=== PATIENT | male | born 1965 | race Caucasian/White ===

== ENCOUNTER 2018-03-17 22:00 | Inpatient (IN) | END 2018-03-22 15:45 | disposition home or self-care (01) | DRG 682 ==

== ENCOUNTER 2018-06-27 21:51 | Inpatient (IN) | END 2018-07-04 13:40 | disposition home or self-care (01) | DRG 683 ==

== ENCOUNTER 2018-09-09 03:29 | Emergency (ER) | payer OTHER ==
[~2018-09-09] VITALS: Ht 170.2 cm; Wt 69.8 kg
[~2018-09-09 03:29] MED LIST: ASPI-1044 PO; ATOR20TA38 PO; BUME1TAB PO; CLON-379 PO; HYDR-3671 PO; INSU100I12 SQ; LANT3I SC; NEPH PO
[2018-09-09 03:39] VITALS: Ht 170.2 cm; Wt 69.8 kg
[2018-09-09] MEDS ORDERED: ONDANSETRON 4 MG INJ IV STA (05:17)
[2018-09-09] MEDS ORDERED: morphine 10 MG INJ IV ONE (05:30)
[2018-09-09 06:03] VITALS: RESP 16
[2018-09-09] MEDS ORDERED: NICARDipine HCL 30 MG CAPSULE PO ONE (07:00)
[2018-09-09 07:58] VITALS: BP 172/91; PULSE 78
--- NOTE | 2018-09-25 09:39 | ERD ---
ER Documentation Chief Complaint Chief Complaint Pt c/o flank pain and CKD, pain started 4 days ago HPI 53 year old male presenting with right flank pain for the past 4-5 days. The pain is aching, constant, nonradiating, without alleviating or exacerbating factors, rated at a 8/10. He has had no associated change in urination, dysuria, hematuria, abdominal pain, nausea, vomiting fevers or chills.No cough or hemoptysis. Per his daughter at bedside, he has CKD but is not yet on dialysis. They are concerned his pain is due to his kidney problems. Denies any recent heavy lifting or injury. No associated focal weakness, numbness or tingling. ROS All systems reviewed and are negative except as per history of present illness. Medications Home Meds Active Scripts Nifedipine (Procardia Xl) 90 Mg Tab.er.24, 90 MG PO DAILY, #30 TAB Prov:SOTO,NATO V. BOTTLED BEVERAGE INSPECTOR 09/17/18 Losartan Potassium* (Cozaar*) 50 Mg Tablet, 50 MG PO BID, #60 TAB Prov:SOTO,NATO V. BOTTLED BEVERAGE INSPECTOR 09/17/18 Bumetanide* (Bumetanide*) 1 Mg Tablet, 2 MG PO DAILY, #30 TAB Prov:SOTO,NATO V. BOTTLED BEVERAGE INSPECTOR 09/17/18 Insulin Lispro (Humalog Kwikpen U-100) 100 Unit/1 Ml Insuln.pen, 5 UNIT SQ AC MEALS, #3 EA Prov:GREG CHILDS 03/22/18 Atorvastatin Calcium* (Atorvastatin Calcium*) 20 Mg Tablet, 20 MG PO QHS, #30 TAB Prov:GREG CHILDS 03/22/18 Clonidine Hcl* (Clonidine Hcl*) 0.1 Mg Tab, 0.1 MG PO Q8, #90 TAB Prov:GREG CHILDS 03/22/18 Reported Medications Calcium Acetate* (Calcium Acetate*) 667 Mg Capsule, 667 MG PO WITH MEALS, #30 CAP 09/12/18 Multivit/Ca Carb/B Cmplx/Fa* (Berta-Shamika*) 1 Tab Tab, 1 TAB PO DAILY, TAB 06/27/18 Insulin Glargine* (Lantus*) 100 Unit/Ml Soln, 10 UNIT SC QHS, #1 VIAL 12/19/18 Allergies Allergies: Coded Allergies: No Known Allergy (Unverified , 09/12/18) PMhx/Soc History of Surgery: No Anesthesia Reaction: No Hx Neurological Disorder: No Hx Respiratory Disorders: No Hx Cardiac Disorders: Yes (HTN) Hx Psychiatric Problems: No Hx Miscellaneous Medical Probl: Yes (DM, HLD, CKD) Hx Alcohol Use: No Hx Substance Use: No Hx Tobacco Use: No Smoking Status: Never smoker FmHx Family History: No coronary disease Physical Exam Physical Exam Const: No acute distress, nontoxic Head: Atraumatic Eyes: Normal Conjunctiva ENT: Normal External Ears, Nose and Mouth. Neck: Full range of motion. No meningismus. Resp: Clear to auscultation bilaterally Cardio: Regular rate and rhythm, no murmurs. 2+ distal pulses Abd: Soft, non tender, non distended. Normal bowel sounds Skin: No petechiae or rashes Back: No midline TTP. mild right CVA TTP. no paraspinal muscle tenderness. Ext: No cyanosis, or edema Neur: Awake and alert, normal speech, moving all extremities Psych: Normal Mood and Affect Results 24 hrs Laboratory Tests Test 09/09/18 04:38 09/09/18 06:36 White Blood Count 7.2 10^3/ul Red Blood Count 3.12 10^6/ul Hemoglobin 8.9 g/dl Hematocrit 27.0 % Mean Corpuscular Volume 86.5 fl Mean Corpuscular Hemoglobin 28.5 pg Mean Corpuscular Hemoglobin Concent 33.0 g/dl Red Cell Distribution Width 13.8 % Platelet Count 247 10^3/UL Mean Platelet Volume 11.5 fl Immature Granulocytes % 0.400 % Neutrophils % 64.7 % Lymphocytes % 21.2 % Monocytes % 9.5 % Eosinophils % 3.6 % Basophils % 0.6 % Nucleated Red Blood Cells % 0.0 /100WBC Immature Granulocytes # 0.030 10^3/ul Neutrophils # 4.7 10^3/ul Lymphocytes # 1.5 10^3/ul Monocytes # 0.7 10^3/ul Eosinophils # 0.3 10^3/ul Basophils # 0.0 10^3/ul Nucleated Red Blood Cells # 0.0 10^3/ul Sodium Level 138 mmol/L Potassium Level 5.0 mmol/L Chloride Level 110 mmol/L Carbon Dioxide Level 20 mmol/L Anion Gap 8 Blood Urea Nitrogen 90 mg/dl Creatinine 8.30 mg/dl Est Glomerular Filtrat Rate mL/min 7 mL/min Glucose Level 160 mg/dl Calcium Level 8.8 mg/dl Total Bilirubin 0.0 mg/dl Direct Bilirubin 0.00 mg/dl Indirect Bilirubin 0.0 mg/dl Aspartate Amino Transf (AST/SGOT) 25 IU/L Alanine Aminotransferase (ALT/SGPT) 24 IU/L Alkaline Phosphatase 69 IU/L Total Protein 6.3 g/dl Albumin 3.3 g/dl Globulin 3.00 g/dl Albumin/Globulin Ratio 1.10 Lipase 303 U/L Urine Color YELLOW Urine Clarity CLEAR Urine pH 5.0 Urine Specific [place] 1.013 Urine Ketones NEGATIVE mg/dL Urine Nitrite NEGATIVE mg/dL Urine Bilirubin NEGATIVE mg/dL Urine Urobilinogen NEGATIVE mg/dL Urine Leukocyte Esterase NEGATIVE Criss/ul Urine Microscopic RBC 3 /HPF Urine Microscopic WBC 2 /HPF Urine Bacteria FEW /HPF Urine Hemoglobin NEGATIVE mg/dL Urine Glucose 3+ mg/dL Urine Total Protein 3+ mg/dl Current Medications Medications Dose Sig/Thai Start Time Status Last (Trade) Ordered Route PRN Stop Time Admin Dose Reason Admin Morphine 6 mg ONCE ONCE 09/09/18 DC 09/09/18 Sulfate IV 05:30 09/09/18 05:21 (morphine) 05:31 Ondansetron 4 mg ONCE STAT 09/09/18 DC 09/09/18 HCl (Zofran IV 05:17 09/09/18 05:21 Inj) 05:18 Nicardipine 30 mg ONCE ONCE 09/09/18 DC 09/09/18 HCl PO 07:00 09/09/18 06:53 (Cardene) 07:01 Procedures/MDM EMERGENT LABS AND DIAGNOSTIC STUDIES: Lab Results above were reviewed and interpreted by me. CBC: Evidence of anemia, chronic. No leukocytosis or evidence of infection CMP: Elevated BUN and creatinine, consistent with history of chronic kidney disease. No evidence of electrolyte abnormality, severe acidosis, hypoglycemia, liver failure, or biliary obstruction Lipase: no evidence of pancreatitis UA: no evidence of infection 12-lead EKG was interpreted by Pia Henderson MD: Normal Sinus Rhythm Normal axis Normal intervals No acute ST or T wave changes suggestive of acute ischemia or STEMI. Radiology Results as interpreted by Radiology below were reviewed by Catherine Henderson MD: Chest x-ray shows no acute abnormalities CT abdomen and pelvis: IMPRESSION: No evidence of urolithiasis, obstructive uropathy, diverticulitis or appendicitis. Small bilateral pleural effusions with bibasilar atelectasis. .Narayan Alston MD, MD Date Time Electronically viewed and signed by .Narayan Alston MD, MD on 09/09/2018 06:26 Initial Nursing notes reviewed. Previous Medical Records requested via the Electronic Health Record. EMERGENCY DEPARTMENT COURSE / MEDICAL DECISION MAKING: Patient is presenting with acute onset of right flank pain for the past few days. Vitals are stable and he is afebrile. I did consider pyelonephritis, ureterolithiasis, retroperitoneal hemorrhage, liver disease, pancreatitis, lower lobe pneumonia, perforated viscus, among other etiologies. Labs did show evidence of chronic kidney disease, which the patient endorses a history of. However he has had no change in urine output. Urine did not show evidence of infection. CT scan was done which did not show any acute abnormalities that would explain his pain. After pain medications were given, the patient was reevaluated once his studies were back and he states he feels much better. I explained to him the results of his studies and recommended follow-up with his primary care physician tomorrow. I encouraged him to return for any worsening symptoms. Patient's blood pressure was elevated (>120/80) but appears stable without ev idence of hypertensive emergency or urgency. The patient was counseled about the risks of hypertension and urged to pursue outpatient monitoring and therapy within a week with their primary care physician. Departure Diagnosis: Primary Impression: Acute right flank pain Condition: Stable Patient Instructions: Flank Pain, Uncertain Cause Referrals: DOCTOR,NOT ON STAFF (PCP) Additional Instructions: Naomie nicko meghana de seguimiento con bales mdico de atencin primaria [facility]. Regrese a la kimi de emergencias por cualquier empeoramiento de los sntomas. EVGENY HENDERSON MD Sep 25, 2018 09:39
== END 2018-09-09 08:00 | disposition home or self-care (01) ==
LOC: E/R 03:29
DX: R10.9 Unspecified abdominal pain (principal); I12.9 Hypertensive chronic kidney disease with stage 1 through stage 4 chronic kidney disease, or unspecified chronic kidney disease; N18.9 Chronic kidney disease, unspecified; E11.22 Type 2 diabetes mellitus with diabetic chronic kidney disease; Z79.4 Long term (current) use of insulin
CPT/HCPCS: 71045; 74176; 80053; 81001; 83690; 85025; 93005; J2270; J2405; Z7610; 36415; 96374; 96375

== ENCOUNTER 2018-09-12 10:24 | Inpatient (IN) | payer OTHER ==
[2018-09-12] VITALS (13 sets, daily range): BP systolic 202–239; BP diastolic 102–120; PULSE 96–104; RESP 18–19; Ht 167.6 cm; Wt 69.8 kg
[~2018-09-12] VITALS: Ht 167.6 cm; Wt 69.8 kg
--- NOTE | 2018-09-12 12:26 | ERD ---
ER Documentation Chief Complaint Chief Complaint PT SEND PER PMD FOR STAT DIALYSIS, NO PRIOR DIALYSIS ACCESS HPI 53-year-old male referred to the emergency department by his mud mill tender. Patient has been followed by his mud mill tender for renal failure over the last year or so. His renal function has been worsening and upon repeat blood tests, it appears the patient now needs dialysis. Patient states that he has been feeling generally weak but without significant shortness of breath. Denies any fevers or chills. Patient had decreased urination but still continues to urinate. ROS All systems reviewed and are negative except as per history of present illness. Medications Home Meds Active Scripts Hydralazine Hcl* (Hydralazine Hcl*) 25 Mg Tab, 75 MG PO QID, #120 TAB Prov:RICHARD FONTANEZ KILN SETTER 07/04/18 Bumetanide* (Bumetanide*) 1 Mg Tablet, 2 MG PO BID DIURETICS, #60 TAB Prov:RICHARD FONTANEZ KILN SETTER 07/04/18 Insulin Lispro (Humalog Kwikpen U-100) 100 Unit/1 Ml Insuln.pen, 5 UNIT SQ AC MEALS, #3 EA Prov:GREG CHILDS 03/22/18 Atorvastatin Calcium* (Atorvastatin Calcium*) 20 Mg Tablet, 20 MG PO QHS, #30 TA B Prov:GREG CHILDS 03/22/18 Clonidine Hcl* (Clonidine Hcl*) 0.1 Mg Tab, 0.1 MG PO Q8, #90 TAB Prov:GREG CHILDS 03/22/18 Reported Medications Multivit/Ca Carb/B Cmplx/Fa* (Berta-Shamika*) 1 Tab Tab, 1 TAB PO DAILY, TAB 06/27/18 Insulin Glargine* (Lantus*) 100 Unit/Ml Soln, 10 UNIT SC QHS, #1 VIAL 06/27/18 Discontinued Scripts Aspirin Delayed Release (Aspirin Delayed Release) 81 Mg Tablet.dr, 81 MG PO ANNA MARIE LY, #30 Prov:RICHARD FONTANEZ KILN SETTER 07/04/18 Allergies Allergies: Coded Allergies: No Known Allergy (Unverified , 09/12/18) PMhx/Soc History of Surgery: No Anesthesia Reaction: No Hx Neurological Disorder: No Hx Respiratory Disorders: No Hx Cardiac Disorders: Yes (HTN) Hx Psychiatric Problems: No Hx Miscellaneous Medical Probl: Yes (DM, HLD, CKD) Hx Alcohol Use: No Hx Substance Use: No Hx Tobacco Use: No Smoking Status: Never smoker FmHx Noncontributory for chief complaint Physical Exam Vitals Vital Signs Date Temp Pulse Resp B/P (MAP) Pulse Ox O2 O2 Flow FiO2 Time Delivery Rate 09/12/18 95 14 233/105 100 Room Air 10:53 (147) 09/12/18 98.5 109 18 250/119 99 10:27 (162) Physical Exam GENERAL: Pale, appearing patient. HEENT: Pupils equal, round, and reactive to light. EOMI. There is no scleral icterus. Mucous membranes are pale NECK: C-spine is soft and supple, there is no meningismus. There is no cervical lymphadenopathy. LUNGS: Clear to auscultation bilaterally. There are no rales, wheezes or rhonchi. HEART: Regular rate and rhythm, no murmurs, clicks, rubs or gallops. ABDOMEN: Soft, non-tender, non-distended. There are bowel sounds in all four quadrants. No rebound or guarding. EXTREMITIES: There is no peripheral cyanosis or edema. No focal swelling or erythema. NEURO: The patient moves all four extremities with 5/5 strength. Cranial nerves II - XII are intact. Normal gait. Alert and oriented SKIN: There is no apparent rash or petechiae. HEME/LYMPHATIC: There is no evidence of excessive bruising or lymphedema. PSYCHIATRIC: The patient does not appear anxious or depressed. Result Diagram: 09/12/18 1141 09/12/18 1141 Results 24 hrs Laboratory Tests Test 09/12/18 11:41 White Blood Count 8.3 10^3/ul Red Blood Count 3.17 10^6/ul Hemoglobin 9.2 g/dl Hematocrit 27.6 % Mean Corpuscular Volume 87.1 fl Mean Corpuscular Hemoglobin 29.0 pg Mean Corpuscular Hemoglobin Concent 33.3 g/dl Red Cell Distribution Width 13.5 % Platelet Count 254 10^3/UL Mean Platelet Volume 11.2 fl Immature Granulocytes % 0.400 % Neutrophils % 74.0 % Lymphocytes % 16.0 % Monocytes % 6.5 % Eosinophils % 2.6 % Basophils % 0.5 % Nucleated Red Blood Cells % 0.0 /100WBC Immature Granulocytes # 0.030 10^3/ul Neutrophils # 6.2 10^3/ul Lymphocytes # 1.3 10^3/ul Monocytes # 0.5 10^3/ul Eosinophils # 0.2 10^3/ul Basophils # 0.0 10^3/ul Nucleated Red Blood Cells # 0.0 10^3/ul Sodium Level 136 mmol/L Potassium Level 5.9 mmol/L Chloride Level 106 mmol/L Carbon Dioxide Level 23 mmol/L Anion Gap 7 Blood Urea Nitrogen 81 mg/dl Creatinine 8.18 mg/dl Est Glomerular Filtrat Rate mL/min 7 mL/min Glucose Level 238 mg/dl Calcium Level 8.9 mg/dl Current Medications Medications Dose Sig/Thai Start Time Status Last (Trade) Ordered Route PRN Stop Time Admin Dose Reason Admin Sodium 30 gm ONCE ONCE 09/12/18 Polystyrene PO 12:30 09/12/18 Sulfonate 12:31 (Kayexalate) Procedures/MDM Patient was taken to a room, seen and evaluated. Comfort measures were initiated. Diagnostic tests were ordered and reviewed. 3 LEAD RHYTHM STRIP: Normal sinus rhythm without ectopy EK lead EKG reviewed by myself: Normal Sinus Rhythm Normal [place] and intervals No ST elevation, depression, or T wave inversion Impression: Normal EKG RADIOLOGY: Reviewed with the radiologist CONSULTATION: Hospitalist was notified for admission. I spoke with the patient's mud mill tender REEVALUATION: 1225: Diagnostic tests were appreciated. Arrangements were made for admission to the hospital. He remained hemodynamically stable. MEDICAL DECISION MAKIN-year-old male presents the emergency room with worsening renal failure and now new onset uremia and hyperkalemia which will lead him to require dialysis. Patient required admission to the hospital for elective light control, initiation of dialysis as well as placement of a catheter. Departure Diagnosis: Primary Impression: Renal failure Additional Impressions: Anemia Uremia Hyperkalemia Condition: ERIKA Moreno Sep 12, 2018 12:26
[2018-09-12] MEDS ORDERED: NA POLYST SULFON 15 GM/60 ML BTL PO ONE (12:30)
[2018-09-12] MEDS ORDERED: NACL 0.9% 3 ML SYG IV SCH (13:00)
[2018-09-12] MEDS ORDERED: GLUCOSE GEL 15 GRAM TUBE BUCCAL PRN (13:00)
[2018-09-12] MEDS ORDERED: GLUCAGON 1 MG INJ IM PRN (13:00)
[2018-09-12] MEDS ORDERED: hydrALAzine 20 MG INJ IV ONE (13:00)
[2018-09-12] MEDS ORDERED: HYDROCODONE/APAP (5/325) TAB PO PRN (13:00)
[2018-09-12] MEDS ORDERED: DEXTROSE 50% 50 ML SYRINGE IV PRN ×2 (13:00)
[2018-09-12] MEDS ORDERED: GLUCOSE GEL 15 GRAM TUBE PO PRN ×2 (13:00)
[2018-09-12] MEDS ORDERED: ACETAMINOPHEN 500 MG TAB PO STA (14:01)
[2018-09-12] MEDS ORDERED: HEPARIN 1000 UNITS/ML 10 ML INJ ONE (14:55)
[2018-09-12] MEDS ORDERED: LIDOCAINE 1% (MDV) 20 ML INJ ONE (14:55)
[2018-09-12] MEDS ORDERED: MIDAZOLAM 1 MG/ML 2 ML INJ ONE (14:55)
[2018-09-12] MEDS ORDERED: IODIXANOL LOCM 50 ML BTL ONE (14:55)
[2018-09-12] MEDS ORDERED: FENTAnyl 50 MCG/ML VIAL ONE (14:56)
--- NOTE | 2018-09-12 15:13 | HP ---
Date/Time of Note Date/Time of Note DATE: 09/12/18 TIME: 15:10 Assessment/Plan VTE Prophylaxis Pharmacological prophylaxis: heparin Lines/Catheters IV Catheter Type (from Nrsg): Saline Lock Assessment/Plan Hospital Course 53 yo male with CKD V, HTN, DMII referred for HD initiation and abdominal pain ESRD: - Initiation of HD per renal - Catheter to be placed RUQ pain: - Only abnormality on CT is pericardial effusion. Perhaps uremic pericarditis is present - Pain control PRN HTN: - Home meds DMII: - Basal/bolus insulin Dispo: To home when HD arranged Result Diagram: 09/12/18 1141 09/12/18 1141 Results 24hrs Laboratory Tests Test 09/12/18 11:41 White Blood Count 8.3 Red Blood Count 3.17 L Hemoglobin 9.2 L Hematocrit 27.6 L Mean Corpuscular Volume 87.1 Mean Corpuscular Hemoglobin 29.0 Mean Corpuscular Hemoglobin Concent 33.3 Red Cell Distribution Width 13.5 Platelet Count 254 Mean Platelet Volume 11.2 H Immature Granulocytes % 0.400 Neutrophils % 74.0 Lymphocytes % 16.0 Monocytes % 6.5 Eosinophils % 2.6 Basophils % 0.5 Nucleated Red Blood Cells % 0.0 Immature Granulocytes # 0.030 Neutrophils # 6.2 Lymphocytes # 1.3 Monocytes # 0.5 Eosinophils # 0.2 Basophils # 0.0 Nucleated Red Blood Cells # 0.0 Sodium Level 136 Potassium Level 5.9 H Chloride Level 106 Carbon Dioxide Level 23 Anion Gap 7 Blood Urea Nitrogen 81 H Creatinine 8.18 H Est Glomerular Filtrat Rate mL/min 7 L Glucose Level 238 H Calcium Level 8.9 Total Bilirubin 0.1 L Direct Bilirubin 0.00 Indirect Bilirubin 0.1 Aspartate Amino Transf (AST/SGOT) 26 Alanine Aminotransferase (ALT/SGPT) 25 Alkaline Phosphatase 60 Total Protein 5.9 L Albumin 3.3 Hepatitis B Surface Antigen NEGATIVE Hepatitis B Surface Antibody NEGATIVE HPI/ROS Admit Date/Time Admit Date/Time Hx of Present Illness 53 yo male with h/o HTN, DMII and CKD V referred for initiation of HD Patient also with severe RUQ pain for last week or so. Came to ED a few days ago. CT negative. Sent home. Continues to have worsening pain. Has nausea. PO intolerant. No fevers. No diarrhea. Went ot receiving checker who referred him to ED for initiation of HD. ROS Constitutional: no complaints, improved Eyes: no complaints ENT: no complaints Respiratory: no complaints Cardiovascular: no complaints Gastrointestinal: no complaints Genitourinary: no complaints Musculoskeletal: no complaints Skin: no complaints Neurologic: no complaints Endocrine: no complaints Lymphatic: no complaints Psychological: no complaints, nl mood/affect Immunologic: no complaints PMH/Family/Social Past Medical History Medical History: diabetes, renal disease Medications Current Medications IV Flush (NS 3 ml) 3 ml PER PROTOCOL IV ; Start 09/12/18 at 13:00 Acetaminophen/ Hydrocodone Bitart ([place] (5/325)) 1 tab Q6H PRN PO .MOD PAIN 4- 6; Start 09/12/18 at 13:00 Heparin Sodium (Porcine) (Heparin (5000 Units/1ml)) 5,000 unit Q12 SC ; Start 09/12/18 at 21:00 Insulin Glargine (Lantus) 14 units DAILY@2000 SC ; Start 09/12/18 at 20:00 Insulin Aspart (Novolog Insulin Pen) 5 unit WITH MEALS SC ; Start 09/12/18 at 18:00 Insulin Aspart (Novolog Insulin Pen) NOVOLOG *MODERATE* ALGORITHM WITH MEALS BEDTIME SC ; Start 09/12/18 at 18:00 Miscellaneous Information 1 ea NOTE XX ; Start 09/12/18 at 13:00 Glucose (Glutose) 15 gm Q15M PRN PO DECREASED GLUCOSE; Start 09/12/18 at 13:00 Glucose (Glutose) 22.5 gm Q15M PRN PO DECREASED GLUCOSE; Start 09/12/18 at 13:00 Dextrose (D50w Syringe) 25 ml Q15M PRN IV DECREASED GLUCOSE; Start 09/12/18 at 13:00 Dextrose (D50w Syringe) 50 ml Q15M PRN IV DECREASED GLUCOSE; Start 09/12/18 at 13:00 Glucagon (Glucagen) 1 mg Q15M PRN IM DECREASED GLUCOSE; Start 09/12/18 at 13:00 Glucose (Glutose) 15 gm Q15M PRN BUCCAL DECREASED GLUCOSE; Start 09/12/18 at 13:00 Atorvastatin Calcium (Lipitor) 20 mg QHS PO ; Start 09/12/18 at 21:00 Bumetanide (Bumex) 2 mg BID DIURETICS PO ; Start 09/12/18 at 18:00 Clonidine (Catapres) 0.1 mg Q8 PO ; Start 09/12/18 at 14:00 Hydralazine HCl (Apresoline) 75 mg QID PO Last administered on 09/12/18at 13:56; Admin Dose 75 MG; Start 09/12/18 at 13:00 Multivit/Ca Carb/ B Cmplx/FA/Prenat (Berta-Shamika) 1 tab DAILY PO ; Start 09/13/18 at 09:00 Hydromorphone HCl (Dilaudid) 0.5 mg Q4H PRN IV SEVERE PAIN LEVEL 7-10; Start 09/12/18 at 15:30 Coded Allergies: No Known Allergy (Unverified , 09/12/18) Past Surgical History Past Surgical Hx: no surgical history Family History Significant Family History: no pertinent family hx Social History Alcohol Use: none Smoking Status: Never smoker Drug Use: none Exam/Review of Systems Vital Signs Vitals Vital Signs Date Temp Pulse Resp B/P (MAP) Pulse Ox O2 O2 Flow FiO2 Time Delivery Rate 09/12/18 99 20 193/99 99 Room Air 13:17 (130) 09/12/18 98.5 10:27 Exam Exam Appears uncomfortable In postiion RRR no rub CTAB Soft nt nd Ext warm MILGROM,WILTON Alexander MD Sep 12, 2018 15:13
--- NOTE | 2018-09-12 15:49 | RADRPT ---
PROCEDURE: PLACEMENT OF RIGHT INTERNAL JUGULAR VENOUS TUNNELED DIALYSIS CATHETER. CLINICAL INDICATION: Renal failure. TECHNIQUE: Prior to the procedure, informed consent was obtained. Risks including bleeding, infection, and pneum othorax were explained to the patient and/or the patient's family. The patient and/or the patient's f amily understood and was willing to proceed. A procedural pause was performed. The patient's name, da te of , and procedure to be performed were verified. The central line was inserted with all new [place] ents of maximal sterile barrier technique. All of the following were used: head covering, facial mask , sterile gown, sterile gloves, a large sterile sheet, hand hygiene, and 2% chlorhexidine for cutane ous antisepsis. The right neck and anterior/superior chest wall was prepped and draped in usual ster ile fashion. Limited sonography of the right neck was then performed. Noted is a patent right internal jugular vei n. Ultrasound images were recorded and stored in the patient's medical record. Following the local injection of Xylocaine, the right internal jugular vein was punctured under sonog raphic guidance with a 20-gauge needle through which a 0.018 inch floppy tip guidewire was advanced i nto the superior vena cava. The tract was dilated to 5 [place] and the wire was then replaced with a 0 .035 in Amplatz guidewire. A tunnel was then created from the anterior lateral aspect of the superio r right chest wall to the puncture site in the neck and the catheter was pulled through the tract. S erial dilatation was then performed and a 16 [place] peel away sheath was introduced. The 14.5 [place] 23cm tip to cuff Angiodynamics BioFlo DuraMax dialysis catheter was advanced through the 16 [place] p eel-away sheath. The tip of the catheter was confirmed in position within the right atrium. The peel- away sheath was removed. The 2 ports were each flushed with 2.3 ml of 1:1000 heparin. The catheter w as secured to the skin with 2-0 silk. The wound in the neck was closed with 4-0 Vicryl suture using subcuticular running technique. The site was dressed. The patient tolerated the proced ure well. Specimens: None. Blood loss: 5 ml. Complications: None. Analog Device Designer: Kyle - geophysical laboratory chief staff. Anesthesia: Local and moderate sedation. Graft/Implant: Tunneled dialysis catheter. COMPARISON: None. FINDINGS: Final radiographic images demonstrate the tip of the catheter in the upper right atrium. A total of 0.3 minutes of fluoroscopy time was used. The ultrasound images demonstrate the needle entering the jugular vein. Ultrasound images were recorded and stored in the patient's medical record. 7 images o f the chest were obtained with image intensifier. IMPRESSION: 1. Percutaneous insertion of right internal jugular dialysis tunneled dialysis catheter under fluoros copic and sonographic guidance. RPTAT: QQ .Romeo Ramirez MD, Date Time Electronically viewed and signed by .Romeo Ramirez MD, on 09/12/2018 15:49 .R/
--- NOTE | 2018-09-12 15:51 | HPN ---
Date/Time of Note Date/Time of Note DATE: 09/12/18 TIME: 15:51 Interval H&P Admission Note Pt. seen H&P reviewed: No system changes MYRA BUNCH MD Sep 12, 2018 15:51
[2018-09-12] MEDS ORDERED: CALC667C PO (16:54)
[2018-09-12] MEDS ORDERED: CARV6.2579 PO (16:54)
[2018-09-12] MEDS: HYDROmorphONE 0.5 MG/0.5 ML SYG IV PRN ×2 (16:58→23:06)
[2018-09-12] MEDS: BUMETANIDE 1 MG TAB PO SCH (17:43)
[2018-09-12] MEDS: INSULIN ASPART [NOVOLOG] 3 ML PEN SC SCH ×3 (18:15→21:00)
[2018-09-12] MEDS: INSULIN GLARGINE [LANTus] (100 UNITS/ML) SYG SC SCH (20:00)
[2018-09-12] MEDS: ATORVASTATIN 20 MG TAB PO SCH (20:39)
[2018-09-12] MEDS: HEPARIN 5,000 UNIT/1 ML VIAL SC SCH (20:45)
[2018-09-12] MEDS ORDERED: INSULIN GLARGINE [LANTus] (100 UNITS/ML) SYG SC ONE (21:00)
[2018-09-12] MEDS ORDERED: LABETALOL HCL 20MG INJ IV ONE (23:30)
[2018-09-13] VITALS (21 sets, daily range): BP systolic 142–206; BP diastolic 84–103; PULSE 67–101; RESP 18–20
[2018-09-13] MEDS: HEPARIN 1000 UNITS/ML 10 ML INJ CATHETER SCH ×2 (00:13→16:24)
[2018-09-13] MEDS: ONDANSETRON 4 MG INJ IV PRN ×2 (01:34→05:36)
[2018-09-13] MEDS ORDERED: BUMETANIDE 1 MG INJ IV ONE (02:00)
[2018-09-13] MEDS: BUMETANIDE 1 MG TAB PO SCH (06:14)
[2018-09-13] MEDS: INSULIN ASPART [NOVOLOG] 3 ML PEN SC SCH ×7 (08:00→21:03)
[2018-09-13] MEDS: MULTIVIT/CA CARB/B CMPLX/FA TAB PO SCH (08:19)
[2018-09-13] MEDS: HEPARIN 5,000 UNIT/1 ML VIAL SC SCH ×2 (08:25→21:03)
[2018-09-13] MEDS: NIFEdipine (XL) 60 MG TAB PO SCH (12:30)
--- NOTE | 2018-09-13 12:33 | PN ---
Date/Time of Note Date/Time of Note DATE: 09/13/18 TIME: 12:28 Assessment/Plan VTE Prophylaxis Risk score (from Nsg)>0 risk: 2 SCD applied (from Nsg): Yes Pharmacological prophylaxis: heparin Lines/Catheters IV Catheter Type (from Nrsg): Saline Lock Assessment/Plan Assessment/Plan 1. ESRD, starts HD on 09/12/2018, awaiting for outpatient HD set up 2. HTN, uncontrolled, change hydralazine to procardia 3. DMII, stable 4. Dyslipidemia, on lipitor 5. DVT prophylaxis: heparin Result Diagram: 09/13/18 0513 09/13/18 0513 Results 24hrs Laboratory Tests Test 09/12/18 18:03 09/12/18 19:45 09/12/18 21:05 09/13/18 05:13 Bedside Glucose 157 89 77 White Blood Count 6.4 # Red Blood Count 2.86 L Hemoglobin 8.2 L Hematocrit 24.8 L Mean Corpuscular Volume 86.7 Mean Corpuscular 28.7 L Hemoglobin Mean Corpuscular 33.1 Hemoglobin Concent Red Cell Distribution 13.6 Width Platelet Count 231 Mean Platelet Volume 11.4 H Immature Granulocytes % 0.500 H Neutrophils % 74.6 Lymphocytes % 16.7 Monocytes % 6.8 Eosinophils % 0.9 Basophils % 0.5 Nucleated Red Blood 0.0 Cells % Immature Granulocytes # 0.030 Neutrophils # 4.8 Lymphocytes # 1.1 Monocytes # 0.4 Eosinophils # 0.1 Basophils # 0.0 Nucleated Red Blood 0.0 Cells # Sodium Level 139 Potassium Level 4.4 Chloride Level 102 Carbon Dioxide Level 27 Anion Gap 10 Blood Urea Nitrogen 48 #H Creatinine 5.88 #H Est Glomerular Filtrat 10 L Rate mL/min Glucose Level 112 # Hemoglobin A1c 7.2 H Calcium Level 8.2 L Total Bilirubin 0.2 Direct Bilirubin 0.00 Indirect Bilirubin 0.2 Aspartate Amino 24 Transf (AST/SGOT) Alanine 26 Aminotransferase (ALT/SG PT) Alkaline Phosphatase 60 Total Protein 5.6 L Albumin 2.9 L Globulin 2.70 Albumin/Globulin Ratio 1.07 Test 09/13/18 07:54 09/13/18 12:25 Bedside Glucose 119 136 Subjective 24 Hr Interval Summary Free Text/Dictation HD yesterday and scheduled for today, awaiting for outpatient HD set up Exam/Review of Systems Exam Vitals Vital Signs Date Temp Pulse Resp B/P (MAP) Pulse Ox O2 O2 Flow FiO2 Time Delivery Rate 09/13/18 98.3 82 20 182/88 99 Room Air 11:19 (119) Intake and Output 09/12/18 09/12/18 09/13/18 1515:00 23:00 07:00 IntakeIntake Total 200 ml OutputOutput Total 200 ml 400 ml BalanceBalance -200 ml -200 ml Constitutional: alert, oriented, well developed Psych: no complaints, nl mood/affect Head: normocephalic, atraumatic Eyes: nl conjunctiva, EOMI, nl lids, PERRL ENMT: nl external ears & nose, nl lips & teeth, nl nasal mucosa & septum Neck: supple Respiratory: clear to auscultation, normal air movement; No congested cough, No crackles/rales, No diminished breath sounds, No intercostal retraction, No labored breathing, No respirations, No tactile fremitus, No wheezing, No other Cardiovascular: regular rate and rhythm, nl pulses; No bruits, No diastolic murmur, No edema, No gallop, No irregular rhythm, No jugular venous distention (JVD), No murmurs/extra sounds, No rub, No systolic murmur, No S3, No S4, No other Gastrointestinal: soft, nl liver, spleen, non-tender; No ascites, No bowel sounds, No distended, No firm, No hepatomegaly, No mass, No rebound or guarding, No splenomegaly, No surgical scars, No tender, No other Musculoskeletal: nl extremities to inspection Extremities: normal pulses; No calf tenderness, No cyanosis, No clubbing, No edema, No pitting pedal edema, No palpable cord, No tenderness, No other Neurological: SILK SCREEN PRINTER MACHINE II-XII intact, nl mental status, nl speech, nl strength Skin: nl turgor Lymph: nl lymph nodes Results Results 24hrs Laboratory Tests Test 09/12/18 18:03 09/12/18 19:45 09/12/18 21:05 09/13/18 05:13 Bedside Glucose 157 89 77 White Blood Count 6.4 # Red Blood Count 2.86 L Hemoglobin 8.2 L Hematocrit 24.8 L Mean Corpuscular Volume 86.7 Mean Corpuscular 28.7 L Hemoglobin Mean Corpuscular 33.1 Hemoglobin Concent Red Cell Distribution 13.6 Width Platelet Count 231 Mean Platelet Volume 11.4 H Immature Granulocytes % 0.500 H Neutrophils % 74.6 Lymphocytes % 16.7 Monocytes % 6.8 Eosinophils % 0.9 Basophils % 0.5 Nucleated Red Blood 0.0 Cells % Immature Granulocytes # 0.030 Neutrophils # 4.8 Lymphocytes # 1.1 Monocytes # 0.4 Eosinophils # 0.1 Basophils # 0.0 Nucleated Red Blood 0.0 Cells # Sodium Level 139 Potassium Level 4.4 Chloride Level 102 Carbon Dioxide Level 27 Anion Gap 10 Blood Urea Nitrogen 48 #H Creatinine 5.88 #H Est Glomerular Filtrat 10 L Rate mL/min Glucose Level 112 # Hemoglobin A1c 7.2 H Calcium Level 8.2 L Total Bilirubin 0.2 Direct Bilirubin 0.00 Indirect Bilirubin 0.2 Aspartate Amino 24 Transf (AST/SGOT) Alanine 26 Aminotransferase (ALT/SG PT) Alkaline Phosphatase 60 Total Protein 5.6 L Albumin 2.9 L Globulin 2.70 Albumin/Globulin Ratio 1.07 Test 09/13/18 07:54 09/13/18 12:25 Bedside Glucose 119 136 Medications Medication Current Medications IV Flush (NS 3 ml) 3 ml PER PROTOCOL IV ; Start 09/12/18 at 13:00 Acetaminophen/ Hydrocodone Bitart ([place] (5/325)) 1 tab Q6H PRN PO .MOD PAIN 4- 6; Start 09/12/18 at 13:00 Heparin Sodium (Porcine) (Heparin (5000 Units/1ml)) 5,000 unit Q12 SC Last administered on 09/13/18at 08:25; Admin Dose 5,000 UNIT; Start 09/12/18 at 21:00 Insulin Glargine (Lantus) 14 units DAILY@2000 SC ; Start 09/12/18 at 20:00 Insulin Aspart (Novolog Insulin Pen) 5 unit WITH MEALS SC Last administered on 09/13/18at 08:08; Admin Dose 5 UNIT; Start 09/12/18 at 18:00 Insulin Aspart (Novolog Insulin Pen) NOVOLOG *MODERATE* ALGORITHM WITH MEALS BEDTIME SC Last administered on 09/12/18at 18:16; Admin Dose 2 UNIT; Start 09/12/18 at 18:00 Miscellaneous Information 1 ea NOTE XX ; Start 09/12/18 at 13:00 Glucose (Glutose) 15 gm Q15M PRN PO DECREASED GLUCOSE; Start 09/12/18 at 13:00 Glucose (Glutose) 22.5 gm Q15M PRN PO DECREASED GLUCOSE; Start 09/12/18 at 13:00 Dextrose (D50w Syringe) 25 ml Q15M PRN IV DECREASED GLUCOSE; Start 09/12/18 at 13:00 Dextrose (D50w Syringe) 50 ml Q15M PRN IV DECREASED GLUCOSE; Start 09/12/18 at 13:00 Glucagon (Glucagen) 1 mg Q15M PRN IM DECREASED GLUCOSE; Start 09/12/18 at 13:00 Glucose (Glutose) 15 gm Q15M PRN BUCCAL DECREASED GLUCOSE; Start 09/12/18 at 13:00 Atorvastatin Calcium (Lipitor) 20 mg QHS PO Last administered on 09/12/18at 20:39; Admin Dose 20 MG; Start 09/12/18 at 21:00 Bumetanide (Bumex) 2 mg BID DIURETICS PO Last administered on 09/13/18 06:14; Admin Dose 2 MG; Start 09/12/18 at 18:00 Clonidine (Catapres) 0.1 mg Q8 PO Last administered on 09/13/18 06:13; Admin Dose 0.1 MG; Start 09/12/18 at 14:00 Hydralazine HCl (Apresoline) 75 mg QID PO Last administered on 09/13/18 08:19; Admin Dose 75 MG; Start 09/12/18 at 13:00 Multivit/Ca Carb/ B Cmplx/FA/Prenat (Berta-Shamika) 1 tab DAILY PO Last a dministered on 09/13/18 08:19; Admin Dose 1 TAB; Start 09/13/18 at 09:00 Hydromorphone HCl (Dilaudid) 0.5 mg Q4H PRN IV SEVERE PAIN LEVEL 7-10 Last administered on 09/12/18at 23:06; Admin Dose 0.5 MG; Start 09/12/18 at 15:30 Ondansetron HCl (Zofran Inj) 4 mg Q4H PRN IV NAUSEA AND/OR VOMITING Last admi nistered on 09/13/18at 05:36; Admin Dose 4 MG; Start 09/12/18 at 22:00 Heparin Sodium (Porcine) (Heparin (1000 Units/ml)) 4,500 unit AFTER DIALYSIS CATHETER Last administered on 09/13/18at 00:13; Admin Dose 4,500 UNIT; Start 09/12/18 at 22:00 FELICIA ALCALA MD Sep 13, 2018 12:33
--- NOTE | 2018-09-13 13:52 | CONS ---
Assessment/Plan Assessment/Plan Assessment/Plan (Daily) - CKD stage 5 not yet on dialysis - DM / DM Nephropathy - HTN / HTN Nephrosclerosis - Anemia - Uremic PLAN: - Post tunnel Cath. insertion - On HD #2 now - Feels much better - BP remains elevated - START: Losartan 50 BID - Start EPOGEN for anemia - Placing for out patient dialysis @ [facility] - HD #3 tomorrow & most probably D/C home THANK YOU VKarol ZIEGLER Consultation Date/Type/Reason Admit Date/Time Date of Consultation: Sep 13, 2018 Type of Consult - Nephrology Reason for Consultation - Worsening renal function with UREMIC SYMPTOMS Date/Time of Note DATE: 09/13/18 TIME: 13:45 Constitutional: poor po Eyes: no complaints ENT: no complaints Respiratory: shortness of breath Cardiovascular: no complaints Gastrointestinal: pain Genitourinary: no complaints Musculoskeletal: no complaints Past Medical History Medical History: diabetes, hypertension, renal disease Home Meds Active Scripts Hydralazine Hcl* (Hydralazine Hcl*) 25 Mg Tab, 75 MG PO QID, #120 TAB Prov:RICHARD FONTAENZ CLOCK REPAIRER 07/04/18 Bumetanide* (Bumetanide*) 1 Mg Tablet, 2 MG PO BID DIURETICS, #60 TAB Prov:RICHARD FONTANEZ CLOCK REPAIRER 07/04/18 Insulin Lispro (Humalog Kwikpen U-100) 100 Unit/1 Ml Insuln.pen, 5 UNIT SQ AC MEALS, #3 EA Prov:GREG CHILDS 03/22/18 Atorvastatin Calcium* (Atorvastatin Calcium*) 20 Mg Tablet, 20 MG PO QHS, #30 TAB Prov:GREG CHILDS 03/22/18 Clonidine Hcl* (Clonidine Hcl*) 0.1 Mg Tab, 0.1 MG PO Q8, #90 TAB Prov:GREG CHILDS 03/22/18 Reported Medications Calcium Acetate* (Calcium Acetate*) 667 Mg Capsule, 667 MG PO WITH MEALS, #30 CAP 09/12/18 Carvedilol* (Carvedilol*) 6.25 Mg Tablet, 6.25 MG PO BID, #60 TAB 09/12/18 Multivit/Ca Carb/B Cmplx/Fa* (Berta-Shamika*) 1 Tab Tab, 1 TAB PO DAILY, TAB 06/27/18 Insulin Glargine* (Lantus*) 100 Unit/Ml Soln, 10 UNIT SC QHS, #1 VIAL 06/27/18 Discontinued Scripts Aspirin Delayed Release (Aspirin Delayed Release) 81 Mg Tablet., 81 MG PO DAILY, #30 Prov:RICHARD FONTANEZ CLOCK REPAIRER 07/04/18 Medications Current Medications IV Flush (NS 3 ml) 3 ml PER PROTOCOL IV ; Start 09/12/18 at 13:00 Acetaminophen/ Hydrocodone Bitart ([place] (5/325)) 1 tab Q6H PRN PO .MOD PAIN 4- 6; Start 09/12/18 at 13:00 Heparin Sodium (Porcine) (Heparin (5000 Units/1ml)) 5,000 unit Q12 SC Last administered on 09/13/18at 08:25; Admin Dose 5,000 UNIT; Start 09/12/18 at 21:00 Insulin Glargine (Lantus) 14 units DAILY@2000 SC ; Start 09/12/18 at 20:00 Insulin Aspart (Novolog Insulin Pen) 5 unit WITH MEALS SC Last administered on 09/13/18at 12:52; Admin Dose 5 UNIT; Start 09/12/18 at 18:00 Insulin Aspart (Novolog Insulin Pen) NOVOLOG *MODERATE* ALGORITHM WITH MEALS BEDTIME SC Last administered on 09/12/18at 18:16; Admin Dose 2 UNIT; Start 09/12/18 at 18:00 Miscellaneous Information 1 ea NOTE XX ; Start 09/12/18 at 13:00 Glucose (Glutose) 15 gm Q15M PRN PO DECREASED GLUCOSE; Start 09/12/18 at 13:00 Glucose (Glutose) 22.5 gm Q15M PRN PO DECREASED GLUCOSE; Start 09/12/18 at 13:00 Dextrose (D50w Syringe) 25 ml Q15M PRN IV DECREASED GLUCOSE; Start 09/12/18 at 13:00 Dextrose (D50w Syringe) 50 ml Q15M PRN IV DECREASED GLUCOSE; Start 09/12/18 at 13:00 Glucagon (Glucagen) 1 mg Q15M PRN IM DECREASED GLUCOSE; Start 09/12/18 at 13:00 Glucose (Glutose) 15 gm Q15M PRN BUCCAL DECREASED GLUCOSE; Start 09/12/18 at 13:00 Atorvastatin Calcium (Lipitor) 20 mg QHS PO Last administered on 09/12/18 20:39; Admin Dose 20 MG; Start 09/12/18 at 21:00 Bumetanide (Bumex) 2 mg BID DIURETICS PO Last administered on 09/13/18 06:14; Admin Dose 2 MG; Start 09/12/18 at 18:00 Clonidine (Catapres) 0.1 mg Q8 PO Last administered on 09/13/18 06:13; Admin Dose 0.1 MG; Start 09/12/18 at 14:00 Multivit/Ca Carb/ B Cmplx/FA/Prenat (Berta-Shamika) 1 tab DAILY PO Last administered on 09/13/18 08:19; Admin Dose 1 TAB; Start 09/13/18 at 09:00 Hydromorphone HCl (Dilaudid) 0.5 mg Q4H PRN IV SEVERE PAIN LEVEL 7-10 Last administered on 09/12/18 23:06; Admin Dose 0.5 MG; Start 09/12/18 at 15:30 Ondansetron HCl (Zofran Inj) 4 mg Q4H PRN IV NAUSEA AND/OR VOMITING Last administered on 09/13/18 05:36; Admin Dose 4 MG; Start 09/12/18 at 22:00 Heparin Sodium (Porcine) (Heparin (1000 Units/ml)) 4,500 unit AFTER DIALYSIS CATHETER Last administered on 09/13/18 00:13; Admin Dose 4,500 UNIT; Start at 22:00 Nifedipine (Procardia Xl) 60 mg DAILY PO ; Start 09/13/18 at 12:30 Allergies: Coded Allergies: No Known Allergy (Unverified , 09/12/18) Past Surgical History Past Surgical Hx: no surgical history Family History Significant Family History: no pertinent family hx Social History Alcohol Use: none Smoking Status: Never smoker Drug Use: none Exam/Review of Systems Exam Vitals Vital Signs Date Temp Pulse Resp B/P (MAP) Pulse Ox O2 O2 Flow FiO2 Time Delivery Rate 09/13/18 83 12:00 09/13/18 98.3 20 182/88 99 Room Air 11:19 (119) Intake and Output 09/12/18 09/12/18 09/13/18 1515:00 23:00 07:00 IntakeIntake Total 200 ml OutputOutput Total 200 ml 400 ml BalanceBalance -200 ml -200 ml Constitutional: alert, oriented Psych: no complaints Head: normocephalic Respiratory: crackles/rales Cardiovascular: regular rate and rhythm, systolic murmur Gastrointestinal: soft Results Result Diagram: 09/13/18 0513 09/13/18 0513 Results 24hrs Laboratory Tests Test 09/12/18 18:03 09/12/18 19:45 09/12/18 21:05 09/13/18 05:13 Bedside Glucose 157 89 77 White Blood Count 6.4 # Red Blood Count 2.86 L Hemoglobin 8.2 L Hematocrit 24.8 L Mean Corpuscular Volume 86.7 Mean Corpuscular 28.7 L Hemoglobin Mean Corpuscular 33.1 Hemoglobin Concent Red Cell Distribution 13.6 Width Platelet Count 231 Mean Platelet Volume 11.4 H Immature Granulocytes % 0.500 H Neutrophils % 74.6 Lymphocytes % 16.7 Monocytes % 6.8 Eosinophils % 0.9 Basophils % 0.5 Nucleated Red Blood 0.0 Cells % Immature Granulocytes # 0.030 Neutrophils # 4.8 Lymphocytes # 1.1 Monocytes # 0.4 Eosinophils # 0.1 Basophils # 0.0 Nucleated Red Blood 0.0 Cells # Sodium Level 139 Potassium Level 4.4 Chloride Level 102 Carbon Dioxide Level 27 Anion Gap 10 Blood Urea Nitrogen 48 #H Creatinine 5.88 #H Est Glomerular Filtrat 10 L Rate mL/min Glucose Level 112 # Hemoglobin A1c 7.2 H Calcium Level 8.2 L Total Bilirubin 0.2 Direct Bilirubin 0.00 Indirect Bilirubin 0.2 Aspartate Amino 24 Transf (AST/SGOT) Alanine 26 Aminotransferase (ALT/SG PT) Alkaline Phosphatase 60 Total Protein 5.6 L Albumin 2.9 L Globulin 2.70 Albumin/Globulin Ratio 1.07 Test 09/13/18 07:54 09/13/18 12:25 Bedside Glucose 119 136 Medications Medication Current Medications IV Flush (NS 3 ml) 3 ml PER PROTOCOL IV ; Start 09/12/18 at 13:00 Acetaminophen/ Hydrocodone Bitart ([place] (5/325)) 1 tab Q6H PRN PO .MOD PAIN 4- 6; Start 09/12/18 at 13:00 Heparin Sodium (Porcine) (Heparin (5000 Units/1ml)) 5,000 unit Q12 SC Last administered on 09/13/18at 08:25; Admin Dose 5,000 UNIT; Start 09/12/18 at 21:00 Insulin Glargine (Lantus) 14 units DAILY@2000 SC ; Start 09/12/18 at 20:00 Insulin Aspart (Novolog Insulin Pen) 5 unit WITH MEALS SC Last administered on 09/13/18at 12:52; Admin Dose 5 UNIT; Start 09/12/18 at 18:00 Insulin Aspart (Novolog Insulin Pen) NOVOLOG *MODERATE* ALGORITHM WITH MEALS BEDTIME SC Last administered on 09/12/18at 18:16; Admin Dose 2 UNIT; Start 09/12/18 at 18:00 Miscellaneous Information 1 ea NOTE XX ; Start 09/12/18 at 13:00 Glucose (Glutose) 15 gm Q15M PRN PO DECREASED GLUCOSE; Start 09/12/18 at 13:00 Glucose (Glutose) 22.5 gm Q15M PRN PO DECREASED GLUCOSE; Start 09/12/18 at 13:00 Dextrose (D50w Syringe) 25 ml Q15M PRN IV DECREASED GLUCOSE; Start 09/12/18 at 13:00 Dextrose (D50w Syringe) 50 ml Q15M PRN IV DECREASED GLUCOSE; Start 09/12/18 at 13:00 Glucagon (Glucagen) 1 mg Q15M PRN IM DECREASED GLUCOSE; Start 09/12/18 at 13:00 Glucose (Glutose) 15 gm Q15M PRN BUCCAL DECREASED GLUCOSE; Start 09/12/18 at 13:00 Atorvastatin Calcium (Lipitor) 20 mg QHS PO Last administered on 09/12/18at 20:3 9; Admin Dose 20 MG; Start 09/12/18 at 21:00 Bumetanide (Bumex) 2 mg BID DIURETICS PO Last administered on 09/13/18at 06:14; Admin Dose 2 MG; Start 09/12/18 at 18:00 Clonidine (Catapres) 0.1 mg Q8 PO Last administered on 09/13/18at 06:13; Admin Dose 0.1 MG; Start 09/12/18 at 14:00 Multivit/Ca Carb/ B Cmplx/FA/Prenat (Berta-Shamika) 1 tab DAILY PO Last administered on 09/13/18at 08:19; Admin Dose 1 TAB; Start 09/13/18 at 09:00 Hydromorphone HCl (Dilaudid) 0.5 mg Q4H PRN IV SEVERE PAIN LEVEL 7-10 Last admi nistered on 09/12/18at 23:06; Admin Dose 0.5 MG; Start 09/12/18 at 15:30 Ondansetron HCl (Zofran Inj) 4 mg Q4H PRN IV NAUSEA AND/OR VOMITING Last administered on 09/13/18at 05:36; Admin Dose 4 MG; Start 09/12/18 at 22:00 Heparin Sodium (Porcine) (Heparin (1000 Units/ml)) 4,500 unit AFTER DIALYSIS CATHETER Last administered on 09/13/18at 00:13; Admin Dose 4,500 UNIT; Start 09/12/18 at 22:00 Nifedipine (Procardia Xl) 60 mg DAILY PO ; Start 09/13/18 at 12:30 PAULINA SMITH MD Sep 13, 2018 13:52
[2018-09-13] MEDS: LOSARTAN 50 MG TAB PO SCH (20:56)
[2018-09-13] MEDS: ATORVASTATIN 20 MG TAB PO SCH (20:56)
[2018-09-13] MEDS: INSULIN GLARGINE [LANTus] (100 UNITS/ML) SYG SC SCH (21:02)
[2018-09-14] VITALS (26 sets, daily range): BP systolic 133–192; BP diastolic 71–102; PULSE 69–83; RESP 16–20
[2018-09-14] MEDS: HYDROmorphONE 0.5 MG/0.5 ML SYG IV PRN ×3 (03:46→21:08)
[2018-09-14] MEDS: INSULIN ASPART [NOVOLOG] 3 ML PEN SC SCH ×7 (08:00→20:59)
[2018-09-14] MEDS: MULTIVIT/CA CARB/B CMPLX/FA TAB PO SCH (08:10)
[2018-09-14] MEDS: HEPARIN 5,000 UNIT/1 ML VIAL SC SCH ×2 (08:27→20:59)
[2018-09-14] MEDS: BUMETANIDE 1 MG TAB PO SCH ×2 (08:47→14:07)
[2018-09-14] MEDS: LOSARTAN 50 MG TAB PO SCH ×3 (08:47→20:51)
[2018-09-14] MEDS: NIFEdipine (XL) 60 MG TAB PO SCH ×2 (08:47→14:06)
[2018-09-14] MEDS: HEPARIN 1000 UNITS/ML 10 ML INJ CATHETER SCH (13:33)
--- NOTE | 2018-09-14 14:55 | PN ---
Date/Time of Note Date/Time of Note DATE: 09/14/18 TIME: 14:53 Assessment/Plan VTE Prophylaxis Risk score (from Nsg)>0 risk: 2 SCD applied (from Nsg): Yes Pharmacological prophylaxis: heparin Lines/Catheters IV Catheter Type (from Nrsg): permacath Assessment/Plan Assessment/Plan 1. ESRD, starts HD on 09/12/2018, awaiting for outpatient HD set up 2. HTN, uncontrolled, change hydralazine to procardia, increase procardia 3. DMII, stable 4. Dyslipidemia, on lipitor 5. Low back pain, muscular, pain control 6. DVT prophylaxis: heparin 7. Disposition: awaiting for outpatient HD schedule to set up and better blood pressure control Result Diagram: 09/14/1829 09/14/18528 Results 24hrs Laboratory Tests Test 09/13/18 17:21 09/13/18 20:03 09/14/18 05:29 09/14/18 07:32 Bedside Glucose 109 199 65 L White Blood Count 5.0 # Red Blood Count 2.84 L Hemoglobin 8.0 L Hematocrit 24.5 L Mean Corpuscular Volume 86.3 Mean Corpuscular 28.2 L Hemoglobin Mean Corpuscular 32.7 Hemoglobin Concent Red Cell Distribution 13.6 Width Platelet Count 220 Mean Platelet Volume 11.2 H Immature Granulocytes % 0.200 Neutrophils % 52.1 Lymphocytes % 31.4 Monocytes % 11.5 H Eosinophils % 3.8 Basophils % 1.0 Nucleated Red Blood 0.0 Cells % Immature Granulocytes # 0.010 Neutrophils # 2.6 Lymphocytes # 1.6 Monocytes # 0.6 Eosinophils # 0.2 Basophils # 0.1 Nucleated Red Blood 0.0 Cells # Sodium Level 139 Potassium Level 5.0 Chloride Level 101 Carbon Dioxide Level 32 H Anion Gap 6 Blood Urea Nitrogen 34 #H Creatinine 4.93 H Est Glomerular Filtrat 12 L Rate mL/min Glucose Level 69 #L Calcium Level 7.9 L Test 09/14/18 08:02 09/14/18 11:43 Bedside Glucose 102 117 Subjective 24 Hr Interval Summary Free Text/Dictation right low back pain, no radiation Exam/Review of Systems Exam Vitals Vital Signs Date Temp Pulse Resp B/P (MAP) Pulse Ox O2 O2 Flow FiO2 Time Delivery Rate 09/14/18 77 16 188/95 98 Room Air 13:20 (126) 09/14/18 98.0 11:21 Intake and Output 09/13/18 09/13/18 09/14/18 1414:59 22:59 06:59 IntakeIntake Total 250 ml 180 ml OutputOutput Total 2400 ml BalanceBalance -2150 ml 180 ml Constitutional: alert, oriented, well developed Psych: no complaints, nl mood/affect Head: normocephalic, atraumatic Eyes: nl conjunctiva, EOMI, nl lids, PERRL ENMT: nl external ears & nose, nl lips & teeth, nl nasal mucosa & septum Neck: supple, non-tender Respiratory: clear to auscultation, normal air movement; No congested cough, No crackles/rales, No diminished breath sounds, No intercostal retraction, No labored breathing, No respirations, No tactile fremitus, No wheezing, No other Cardiovascular: regular rate and rhythm, nl pulses; No bruits, No diastolic murmur, No edema, No gallop, No irregular rhythm, No jugular venous distention (JVD), No murmurs/extra sounds, No rub, No systolic murmur, No S3, No S4, No other Gastrointestinal: soft, nl liver, spleen, non-tender Musculoskeletal: nl extremities to inspection Extremities: normal pulses; No calf tenderness, No cyanosis, No clubbing, No edema, No pitting pedal edema, No palpable cord, No tenderness, No other Neurological: [employer] II-XII intact, nl mental status, nl speech, nl strength Results Results 24hrs Laboratory Tests Test 09/13/18 17:21 09/13/18 20:03 09/14/18 05:29 09/14/18 07:32 Bedside Glucose 109 199 65 L White Blood Count 5.0 # Red Blood Count 2.84 L Hemoglobin 8.0 L Hematocrit 24.5 L Mean Corpuscular Volume 86.3 Mean Corpuscular 28.2 L Hemoglobin Mean Corpuscular 32.7 Hemoglobin Concent Red Cell Distribution 13.6 Width Platelet Count 220 Mean Platelet Volume 11.2 H Immature Granulocytes % 0.200 Neutrophils % 52.1 Lymphocytes % 31.4 Monocytes % 11.5 H Eosinophils % 3.8 Basophils % 1.0 Nucleated Red Blood 0.0 Cells % Immature Granulocytes # 0.010 Neutrophils # 2.6 Lymphocytes # 1.6 Monocytes # 0.6 Eosinophils # 0.2 Basophils # 0.1 Nucleated Red Blood 0.0 Cells # Sodium Level 139 Potassium Level 5.0 Chloride Level 101 Carbon Dioxide Level 32 H Anion Gap 6 Blood Urea Nitrogen 34 #H Creatinine 4.93 H Est Glomerular Filtrat 12 L Rate mL/min Glucose Level 69 #L Calcium Level 7.9 L Test 09/14/18 08:02 09/14/18 11:43 Bedside Glucose 102 117 Medications Medication Current Medications IV Flush (NS 3 ml) 3 ml PER PROTOCOL IV ; Start 09/12/18 at 13:00 Acetaminophen/ Hydrocodone Bitart ([place] (5/325)) 1 tab Q6H PRN PO .MOD PAIN 4- 6 Last administered on 09/14/18at 02:33; Admin Dose 1 TAB; Start 09/12/18 at 13:00 Heparin Sodium (Porcine) (Heparin (5000 Units/1ml)) 5,000 unit Q12 SC Last administered on 09/14/18 08:27; Admin Dose 5,000 UNIT; Start 09/12/18 at 21:00 Insulin Glargine (Lantus) 14 units DAILY@2000 SC Last administered on 09/13/18 21:02; Admin Dose 14 UNITS; Start 09/12/18 at 20:00 Insulin Aspart (Novolog Insulin Pen) 5 unit WITH MEALS SC Last administered on 09/13/18 17:28; Admin Dose 5 UNIT; Start 09/12/18 at 18:00 Insulin Aspart (Novolog Insulin Pen) NOVOLOG *MODERATE* ALGORITHM WITH MEALS BEDTIME SC Last administered on 09/13/18 21:03; Admin Dose 1 UNIT; Start 09/12/18 at 18:00 Miscellaneous Information 1 ea NOTE XX ; Start 09/12/18 at 13:00 Glucose (Glutose) 15 gm Q15M PRN PO DECREASED GLUCOSE; Start 09/12/18 at 13:00 Glucose (Glutose) 22.5 gm Q15M PRN PO DECREASED GLUCOSE; Start 09/12/18 at 13:00 Dextrose (D50w Syringe) 25 ml Q15M PRN IV DECREASED GLUCOSE; Start 09/12/18 at 13:00 Dextrose (D50w Syringe) 50 ml Q15M PRN IV DECREASED GLUCOSE; Start 09/12/18 at 13:00 Glucagon (Glucagen) 1 mg Q15M PRN IM DECREASED GLUCOSE; Start 09/12/18 at 13:00 Glucose (Glutose) 15 gm Q15M PRN BUCCAL DECREASED GLUCOSE; Start 09/12/18 at 13:00 Atorvastatin Calcium (Lipitor) 20 mg QHS PO Last administered on 09/13/18 20:56; Admin Dose 20 MG; Start 09/12/18 at 21:00 Clonidine (Catapres) 0.1 mg Q8 PO Last administered on 09/14/18 14:05; Admin Dose 0.1 MG; Start 09/12/18 at 14:00 Multivit/Ca Carb/ B Cmplx/FA/Prenat (Berta-Shamika) 1 tab DAILY PO Last admin istered on 09/14/18 08:10; Admin Dose 1 TAB; Start 09/13/18 at 09:00 Hydromorphone HCl (Dilaudid) 0.5 mg Q4H PRN IV SEVERE PAIN LEVEL 7-10 Last administered on 09/14/18 14:09; Admin Dose 0.5 MG; Start 09/12/18 at 15:30 Ondansetron HCl (Zofran Inj) 4 mg Q4H PRN IV NAUSEA AND/OR VOMITING Last administered on 09/13/18 05:36; Admin Dose 4 MG; Start 09/12/18 at 22:00 Heparin Sodium (Porcine) (Heparin (1000 Units/ml)) 4,500 unit AFTER DIALYSIS CATHETER Last administered on 09/14/18 13:33; Admin Dose 4,500 UNIT; Start 09/12/18 at 22:00 Bumetanide (Bumex) 2 mg DAILY PO Last administered on 09/14/18 14:07; Admin Dose 2 MG; Start 09/14/18 at 09:00 Losartan Potassium (Cozaar) 50 mg BID PO Last administered on 09/14/18 14:06; Admin Dose 50 MG; Start 09/13/18 at 21:00 Nifedipine (Procardia Xl) 90 mg DAILY PO ; Start 09/15/18 at 09:00 FELICIA ALCALA MD Sep 14, 2018 14:55
--- NOTE | 2018-09-14 16:05 | CONS ---
Assessment/Plan Assessment/Plan Assessment/Plan (Daily) - CKD stage 5 not yet on dialysis - DM / DM Nephropathy - HTN / HTN Nephrosclerosis - Anemia - Uremic PLAN: - Post tunnel Cath. insertion - On HD #2 now - Feels much better - BP remains elevated - START: Losartan 50 BID - Start EPOGEN for anemia - [facility] HD [facility]3 tomorrow & most probably D/C home HD #3 Feels better Had the vein mapping done [facility] ? origin of the pain CT was normal Will observe for the next 24 hours Check UA Consultation Date/Type/Reason Admit Date/Time Sep 12, 2018 at 12:23 Initial Consult Date 09/13/18 Type of Consult - Nephrology Date/Time of Note DATE: 09/14/18 TIME: 16:03 24 HR Interval Summary Constitutional: improved Exam/Review of Systems Exam Vitals Vital Signs Date Temp Pulse Resp B/P (MAP) Pulse Ox O2 O2 Flow FiO2 Time Delivery Rate 09/14/18 98.3 79 20 192/94 98 Room Air 15:21 (126) Intake and Output 09/13/18 09/13/18 09/14/18 1414:59 22:59 06:59 IntakeIntake Total 250 ml 180 ml OutputOutput Total 2400 ml BalanceBalance -2150 ml 180 ml Constitutional: alert, oriented Respiratory: crackles/rales Cardiovascular: regular rate and rhythm, systolic murmur Gastrointestinal: tender Results Result Diagram: 09/14/18 0529 09/14/18 0529 Results 24hrs Laboratory Tests Test 09/13/18 17:21 09/13/18 20:03 09/14/18 05:29 09/14/18 07:32 Bedside Glucose 109 199 65 L White Blood Count 5.0 # Red Blood Count 2.84 L Hemoglobin 8.0 L Hematocrit 24.5 L Mean Corpuscular Volume 86.3 Mean Corpuscular 28.2 L Hemoglobin Mean Corpuscular 32.7 Hemoglobin Concent Red Cell Distribution 13.6 Width Platelet Count 220 Mean Platelet Volume 11.2 H Immature Granulocytes % 0.200 Neutrophils % 52.1 Lymphocytes % 31.4 Monocytes % 11.5 H Eosinophils % 3.8 Basophils % 1.0 Nucleated Red Blood 0.0 Cells % Immature Granulocytes # 0.010 Neutrophils # 2.6 Lymphocytes # 1.6 Monocytes # 0.6 Eosinophils # 0.2 Basophils # 0.1 Nucleated Red Blood 0.0 Cells # Sodium Level 139 Potassium Level 5.0 Chloride Level 101 Carbon Dioxide Level 32 H Anion Gap 6 Blood Urea Nitrogen 34 #H Creatinine 4.93 H Est Glomerular Filtrat 12 L Rate mL/min Glucose Level 69 #L Calcium Level 7.9 L Test 09/14/18 08:02 09/14/18 11:43 Bedside Glucose 102 117 Medications Medication Current Medications IV Flush (NS 3 ml) 3 ml PER PROTOCOL IV ; Start 09/12/18 at 13:00 Acetaminophen/ Hydrocodone Bitart ([place] (5/325)) 1 tab Q6H PRN PO .MOD PAIN 4- 6 Last administered on 09/14/18 02:33; Admin Dose 1 TAB; Start 09/12/18 at 13:00 Heparin Sodium (Porcine) (Heparin (5000 Units/1ml)) 5,000 unit Q12 SC Last administered on 09/14/18 08:27; Admin Dose 5,000 UNIT; Start 09/12/18 at 21:00 Insulin Glargine (Lantus) 14 units DAILY@2000 SC Last administered on 09/13/18 21:02; Admin Dose 14 UNITS; Start 09/12/18 at 20:00 Insulin Aspart (Novolog Insulin Pen) 5 unit WITH MEALS SC Last administered on 09/13/18 17:28; Admin Dose 5 UNIT; Start 09/12/18 at 18:00 Insulin Aspart (Novolog Insulin Pen) NOVOLOG *MODERATE* ALGORITHM WITH MEALS BEDTIME SC Last administered on 09/13/18 21:03; Admin Dose 1 UNIT; Start 09/12/18 at 18:00 Miscellaneous Information 1 ea NOTE XX ; Start 09/12/18 at 13:00 Glucose (Glutose) 15 gm Q15M PRN PO DECREASED GLUCOSE; Start 09/12/18 at 13:00 Glucose (Glutose) 22.5 gm Q15M PRN PO DECREASED GLUCOSE; Start 09/12/18 at 13:00 Dextrose (D50w Syringe) 25 ml Q15M PRN IV DECREASED GLUCOSE; Start 09/12/18 at 13:00 Dextrose (D50w Syringe) 50 ml Q15M PRN IV DECREASED GLUCOSE; Start 09/12/18 at 13:00 Glucagon (Glucagen) 1 mg Q15M PRN IM DECREASED GLUCOSE; Start 09/12/18 at 13:00 Glucose (Glutose) 15 gm Q15M PRN BUCCAL DECREASED GLUCOSE; Start 09/12/18 at 13:00 Atorvastatin Calcium (Lipitor) 20 mg QHS PO Last administered on 09/13/18 20:56; Admin Dose 20 MG; Start 09/12/18 at 21:00 Clonidine (Catapres) 0.1 mg Q8 PO Last administered on 09/14/18 14:05; Admin Dose 0.1 MG; Start 09/12/18 at 14:00 Multivit/Ca Carb/ B Cmplx/FA/Prenat (Berta-Shamika) 1 tab DAILY PO Last administer ed on 09/14/18 08:10; Admin Dose 1 TAB; Start 09/13/18 at 09:00 Hydromorphone HCl (Dilaudid) 0.5 mg Q4H PRN IV SEVERE PAIN LEVEL 7-10 Last administered on 09/14/18 14:09; Admin Dose 0.5 MG; Start 09/12/18 at 15:30 Ondansetron HCl (Zofran Inj) 4 mg Q4H PRN IV NAUSEA AND/OR VOMITING Last administered on 09/13/18 05:36; Admin Dose 4 MG; Start 09/12/18 at 22:00 Heparin Sodium (Porcine) (Heparin (1000 Units/ml)) 4,500 unit AFTER DIALYSIS CATHETER Last administered on 09/14/18 13:33; Admin Dose 4,500 UNIT; Start 09/12/18 at 22:00 Bumetanide (Bumex) 2 mg DAILY PO Last administered on 09/14/18 14:07; Admin Dose 2 MG; Start 09/14/18 at 09:00 Losartan Potassium (Cozaar) 50 mg BID PO Last administered on 09/14/18 14:06; Admin Dose 50 MG; Start 09/13/18 at 21:00 Nifedipine (Procardia Xl) 90 mg DAILY PO ; Start 09/15/18 at 09:00 PAULINA SMITH MD Sep 14, 2018 16:05
[2018-09-14] MEDS: ATORVASTATIN 20 MG TAB PO SCH (20:52)
[2018-09-14] MEDS: INSULIN GLARGINE [LANTus] (100 UNITS/ML) SYG SC SCH (20:59)
[2018-09-15] VITALS (12 sets, daily range): BP systolic 130–186; BP diastolic 68–88; PULSE 67–95; RESP 17–20
[2018-09-15] MEDS: INSULIN ASPART [NOVOLOG] 3 ML PEN SC SCH ×7 (08:00→21:01)
[2018-09-15] MEDS: MULTIVIT/CA CARB/B CMPLX/FA TAB PO SCH (08:53)
[2018-09-15] MEDS: LOSARTAN 50 MG TAB PO SCH ×2 (08:53→20:58)
[2018-09-15] MEDS: BUMETANIDE 1 MG TAB PO SCH (08:53)
[2018-09-15] MEDS: NIFEdipine (XL) 90 MG TAB PO SCH (08:53)
[2018-09-15] MEDS: HEPARIN 5,000 UNIT/1 ML VIAL SC SCH ×2 (09:04→21:02)
--- NOTE | 2018-09-15 10:46 | PN ---
Date/Time of Note Date/Time of Note DATE: 09/15/18 TIME: 10:43 Assessment/Plan VTE Prophylaxis Risk score (from Ns)>0 risk: 2 SCD applied (from Ns): Yes SCD contraindicated: low risk/ambulating Pharmacological prophylaxis: heparin Pharm contraindication: low risk/ambulating Lines/Catheters IV C[facility]ter [facility]from [facility] Permacath Assessment/Plan Problems: (1) End stage renal disease on dialysis due to type 2 diabetes mellitus Status: Chronic Comment: As per information supplied by his outpatient linux support engineer his chronic kidney disease has slowly gotten to the point where he now needs to be on dialysis. He is doing well with dialysis and has a permacath in place. Need nephrology to specify that he can be discharged today, and also need social work to confirm that all the arrangements for outpatient dialysis are in place (2) Uremia Status: Acute Comment: Clearing up with the dialysis (3) Acute right flank pain Status: Acute Comment: Resolving nicely. (4) Hyperlipidemia associated with type 2 diabetes mellitus Status: Chronic Comment: Continue with statin therapy. Please note the diabetes is adequately controlled on a basal bolus multiple daily injection regimen (5) Anemia in stage 5 chronic kidney disease, not on chronic dialysis Status: Chronic Comment: Noted. Outpatient management with Dr. Smith (6) Diabetes mellitus type 2 in nonobese Status: Chronic Comment: Stable control on a basal bolus regimen (7) Permanent central venous catheter in place Status: Acute Comment: Operational on affect Result Diagram: 09/15/18 0520 09/15/18 0520 Results 24hrs Laboratory Tests Test 09/14/18 11:43 09/14/18 17:27 09/14/18 20:50 09/15/18 02:11 Bedside Glucose 117 116 186 50 L Test 09/15/18 02:30 09/15/18 02:52 09/15/18 03:11 09/15/18 05:20 Bedside Glucose 50 L 109 140 White Blood Count 5.0 Red Blood Count 2.81 L Hemoglobin 8.0 L Hematocrit 24.9 L Mean Corpuscular Volume 88.6 Mean Corpuscular 28.5 L Hemoglobin Mean Corpuscular 32.1 Hemoglobin Concent Red Cell Distribution 13.2 Width Platelet Count 206 Mean Platelet Volume 11.5 H Immature Granulocytes % 0.200 Neutrophils % 52.1 Lymphocytes % 29.2 Monocytes % 11.7 H Eosinophils % 6.0 Basophils % 0.8 Nucleated Red Blood 0.0 Cells % Immature Granulocytes # 0.010 Neutrophils # 2.6 Lymphocytes # 1.5 Monocytes # 0.6 Eosinophils # 0.3 Basophils # 0.0 Nucleated Red Blood 0.0 Cells # Sodium Level 137 Potassium Level 4.4 Chloride Level 105 Carbon Dioxide Level 26 Anion Gap 6 Blood Urea Nitrogen 22 #H Creatinine 3.94 H Est Glomerular Filtrat 16 L Rate mL/min Glucose Level 69 L Calcium Level 8.0 L Test 09/15/18 08:12 09/15/18 08:42 Bedside Glucose 55 L 101 CC: PAULINA SMITH MD ; Subjective 24 Hr Interval Summary Free Text/Dictation She reports she is feeling better and that his back pain is significantly improved. Constitutional: no complaints Respiratory: no complaints Cardiovascular: no complaints Gastrointestinal: no complaints Genitourinary: no complaints Musculoskeletal: back pain Exam/Review of Systems Exam Vitals Vital Signs Date Temp Pulse Resp B/P (MAP) Pulse Ox O2 O2 Flow FiO2 Time Delivery Rate 09/15/18 98.3 77 18 162/81 97 08:49 (108) 09/14/18 Room Air 15:21 Intake and Output 09/14/18 09/14/18 09/15/18 1515:00 23:00 07:00 IntakeIntake Total 400 ml 500 ml OutputOutput Total 2000 ml BalanceBalance -2000 ml 400 ml 500 ml Exam Sitting up in chair in good spirits Constitutional: alert, oriented Neck: supple, non-tender Respiratory: clear to auscultation, normal air movement Cardiovascular: regular rate and rhythm, nl pulses Gastrointestinal: soft, nl liver, spleen, non-tender Results Results 24hrs Laboratory Tests Test 09/14/18 11:43 09/14/18 17:27 09/14/18 20:50 09/15/18 02:11 Bedside Glucose 117 116 186 50 L Test 09/15/18 02:30 09/15/18 02:52 09/15/18 03:11 09/15/18 05:20 Bedside Glucose 50 L 109 140 White Blood Count 5.0 Red Blood Count 2.81 L Hemoglobin 8.0 L Hematocrit 24.9 L Mean Corpuscular Volume 88.6 Mean Corpuscular 28.5 L Hemoglobin Mean Corpuscular 32.1 Hemoglobin Concent Red Cell Distribution 13.2 Width Platelet Count 206 Mean Platelet Volume 11.5 H Immature Granulocytes % 0.200 Neutrophils % 52.1 Lymphocytes % 29.2 Monocytes % 11.7 H Eosinophils % 6.0 Basophils % 0.8 Nucleated Red Blood 0.0 Cells % Immature Granulocytes # 0.010 Neutrophils # 2.6 Lymphocytes # 1.5 Monocytes # 0.6 Eosinophils # 0.3 Basophils # 0.0 Nucleated Red Blood 0.0 Cells # Sodium Level 137 Potassium Level 4.4 Chloride Level 105 Carbon Dioxide Level 26 Anion Gap 6 Blood Urea Nitrogen 22 #H Creatinine 3.94 H Est Glomerular Filtrat 16 L Rate mL/min Glucose Level 69 L Calcium Level 8.0 L Test 09/15/18 08:12 09/15/18 08:42 Bedside Glucose 55 L 101 Medications Medication Current Medications IV Flush (NS 3 ml) 3 ml PER PROTOCOL IV ; Start 09/12/18 at 13:00 Acetaminophen/ Hydrocodone Bitart ([place] (5/325)) 1 tab Q6H PRN PO .MOD PAIN 4- 6 Last administered on 09/14/18 02:33; Admin Dose 1 TAB; Start 09/12/18 at 13:00 Heparin Sodium (Porcine) (Heparin (5000 Units/1ml)) 5,000 unit Q12 SC Last administered on 09/15/18 09:04; Admin Dose 5,000 UNIT; Start 09/12/18 at 21:00 Insulin Aspart (Novolog Insulin Pen) 5 unit WITH MEALS SC Last administered on 09/13/18 17:28; Admin Dose 5 UNIT; Start 09/12/18 at 18:00 Insulin Aspart (Novolog Insulin Pen) NOVOLOG *MODERATE* ALGORITHM WITH MEALS BEDTIME SC Last administered on 09/14/18 20:59; Admin Dose 1 UNIT; Start 09/12/18 at 18:00 Miscellaneous Information 1 ea NOTE XX ; Start 09/12/18 at 13:00 Glucose (Glutose) 15 gm Q15M PRN PO DECREASED GLUCOSE; Start 09/12/18 at 13:00 Glucose (Glutose) 22.5 gm Q15M PRN PO DECREASED GLUCOSE; Start 09/12/18 at 13:00 Dextrose (D50w Syringe) 25 ml Q15M PRN IV DECREASED GLUCOSE; Start 09/12/18 at 13:00 Dextrose (D50w Syringe) 50 ml Q15M PRN IV DECREASED GLUCOSE; Start 09/12/18 at 13:00 Glucagon (Glucagen) 1 mg Q15M PRN IM DECREASED GLUCOSE; Start 09/12/18 at 13:00 Glucose (Glutose) 15 gm Q15M PRN BUCCAL DECREASED GLUCOSE; Start 09/12/18 at 13:00 Atorvastatin Calcium (Lipitor) 20 mg QHS PO Last administered on 09/14/18 20: 52; Admin Dose 20 MG; Start 09/12/18 at 21:00 Clonidine (Catapres) 0.1 mg Q8 PO Last administered on 09/15/18 05:39; Admin Dose 0.1 MG; Start 09/12/18 at 14:00 Multivit/Ca Carb/ B Cmplx/FA/Prenat (Berta-Shamika) 1 tab DAILY PO Last administered on 09/15/18 08:53; Admin Dose 1 TAB; Start 09/13/18 at 09:00 Hydromorphone HCl (Dilaudid) 0.5 mg Q4H PRN IV SEVERE PAIN LEVEL 7-10 Last administered on 09/14/18 21:08; Admin Dose 0.5 MG; Start 09/12/18 at 15:30 Ondansetron HCl (Zofran Inj) 4 mg Q4H PRN IV NAUSEA AND/OR VOMITING Last administered on 09/13/18 05:36; Admin Dose 4 MG; Start 09/12/18 at 22:00 Heparin Sodium (Porcine) (Heparin (1000 Units/ml)) 4,500 unit AFTER DIALYSIS CATHETER Last administered on 09/14/18 13:33; Admin Dose 4,500 UNIT; Start 09/12/18 at 22:00 Bumetanide (Bumex) 2 mg DAILY PO Last administered on 09/15/18 08:53; Admin Dose 2 MG; Start 09/14/18 at 09:00 Losartan Potassium (Cozaar) 50 mg BID PO Last administered on 09/15/18 08:53; Admin Dose 50 MG; Start 09/13/18 at 21:00 Nifedipine (Procardia Xl) 90 mg DAILY PO Last administered on 09/15/18 08:53; Admin Dose 90 MG; Start 09/15/18 at 09:00 Insulin Glargine (Lantus) 7 units DAILY@2000 SC ; Start 09/15/18 at 20:00 CINDY ZHANG MD Sep 15, 2018 10:46
[2018-09-15] MEDS: ATORVASTATIN 20 MG TAB PO SCH (20:58)
[2018-09-15] MEDS: INSULIN GLARGINE [LANTus] (100 UNITS/ML) SYG SC SCH (21:03)
[2018-09-16 02:15] VITALS: BP_SYST 143; BP_SYST 152; BP_DIAS 74; BP_DIAS 79; PULSE 74; PULSE 84; RESP 18; RESP 20
[2018-09-16 06:35] VITALS: BP 165/80; PULSE 82
[2018-09-16 07:36] VITALS: BP 158/84; PULSE 74; RESP 18
[2018-09-16] MEDS: INSULIN ASPART [NOVOLOG] 3 ML PEN SC SCH ×7 (07:50→20:38)
[2018-09-16] MEDS: NIFEdipine (XL) 90 MG TAB PO SCH (08:58)
[2018-09-16] MEDS: MULTIVIT/CA CARB/B CMPLX/FA TAB PO SCH (08:58)
[2018-09-16] MEDS: LOSARTAN 50 MG TAB PO SCH ×2 (08:59→20:41)
[2018-09-16] MEDS: HEPARIN 5,000 UNIT/1 ML VIAL SC SCH ×2 (09:04→20:40)
[2018-09-16] MEDS: BUMETANIDE 1 MG TAB PO SCH (11:04)
--- NOTE | 2018-09-16 12:25 | PN ---
Date/Time of Note Date/Time of Note DATE: 09/16/18 TIME: 12:22 Assessment/Plan VTE Prophylaxis Risk score (from Ns)>0 risk: 3 SCD applied (from Ns): Yes SCD contraindicated: low risk/ambulating Pharmacological prophylaxis: heparin Pharm contraindication: low risk/ambulating Lines/Catheters IV Catheter [facility] (from [facility]): Permacath Assessment/Plan Problems: (1) End stage renal disease on dialysis due to type 2 diabetes mellitus Status: Chronic Comment: Patient unfortunately cannot be discharged as there is a lack of clarity for where he will be going for dialysis. The professor of practice had originally intended for him to go to a facility where he be treated Monday. Apparently this is not working with his insurance. Case management set him up for Monday at another facility however we do not have a time for him to reports of facility and nobody can get that information. As such we are going to have to hold him since would not be a safe discharge. (2) Diabetes mellitus type 2 in nonobese Status: Chronic Comment: Adequate glycemic control (3) Hyperlipidemia associated with type 2 diabetes mellitus Status: Chronic Comment: Adequate control (4) Anemia in stage 5 chronic kidney disease, not on chronic dialysis Status: Chronic Comment: Noted. This can be treated at the dialysis center with Epogen (5) Permanent central venous catheter in place Status: Acute Comment: Available in operational Result Diagram: 09/15/18 0520 09/15/18 0520 Results 24hrs Laboratory Tests Test 09/15/18 17:27 09/15/18 20:57 09/16/18 03:33 09/16/18 03:59 Bedside Glucose 106 290 H 67 L 77 Test 09/16/18 04:18 09/16/18 04:34 09/16/18 08:57 Bedside Glucose 97 108 91 Subjective 24 Hr Interval Summary Free Text/Dictation Patient reports she is feeling well would like to be discharged home. Constitutional: no complaints Respiratory: no complaints Cardiovascular: no complaints Gastrointestinal: no complaints Exam/Review of Systems Exam Vitals Vital Signs Date Temp Pulse Resp B/P (MAP) Pulse Ox O2 O2 Flow FiO2 Time Delivery Rate 09/16/18 98.8 74 18 158/84 99 07:36 (108) 09/15/18 Room Air 15:48 Intake and Output 09/15/18 09/15/18 09/16/18 1515:00 23:00 07:00 IntakeIntake Total 640 ml 1000 ml BalanceBalance 640 ml 1000 ml Constitutional: alert, oriented Neck: supple, non-tender Respiratory: clear to auscultation, normal air movement Cardiovascular: regular rate and rhythm, nl pulses Results Results 24hrs Laboratory Tests Test 09/15/18 17:27 09/15/18 20:57 09/16/18 03:33 09/16/18 03:59 Bedside Glucose 106 290 H 67 L 77 Test 09/16/18 04:18 09/16/18 04:34 09/16/18 08:57 Bedside Glucose 97 108 91 Medications Medication Current Medications IV Flush (NS 3 ml) 3 ml PER PROTOCOL IV ; Start 09/12/18 at 13:00 Acetaminophen/ Hydrocodone Bitart ([place] (5/325)) 1 tab Q6H PRN PO .MOD PAIN 4- 6 Last administered on 09/14/18at 02:33; Admin Dose 1 TAB; Start 09/12/18 at 13:00 Heparin Sodium (Porcine) (Heparin (5000 Units/1ml)) 5,000 unit Q12 SC Last administered on 09/16/18at 09:04; Admin Dose 5,000 UNIT; Start 09/12/18 at 21:00 Insulin Aspart (Novolog Insulin Pen) 5 unit WITH MEALS SC Last administered on 09/16/18at 09:03; Admin Dose 5 UNIT; Start 09/12/18 at 18:00 Insulin Aspart (Novolog Insulin Pen) NOVOLOG *MODERATE* ALGORITHM WITH MEALS BEDTIME SC Last administered on 09/15/18at 21:01; Admin Dose 3 UNIT; Start 09/12/18 at 18:00 Miscellaneous Information 1 ea NOTE XX ; Start 09/12/18 at 13:00 Glucose (Glutose) 15 gm Q15M PRN PO DECREASED GLUCOSE; Start 09/12/18 at 13:00 Glucose (Glutose) 22.5 gm Q15M PRN PO DECREASED GLUCOSE; Start 09/12/18 at 13:00 Dextrose (D50w Syringe) 25 ml Q15M PRN IV DECREASED GLUCOSE; Start 09/12/18 at 13:00 Dextrose (D50w Syringe) 50 ml Q15M PRN IV DECREASED GLUCOSE; Start 09/12/18 at 13:00 Glucagon (Glucagen) 1 mg Q15M PRN IM DECREASED GLUCOSE; Start 09/12/18 at 13:00 Glucose (Glutose) 15 gm Q15M PRN BUCCAL DECREASED GLUCOSE; Start 09/12/18 at 13:00 Atorvastatin Calcium (Lipitor) 20 mg QHS PO Last administered on 09/15/18 20:58; Admin Dose 20 MG; Start 09/12/18 at 21:00 Clonidine (Catapres) 0.1 mg Q8 PO Last administered on 09/16/18 06:33; Admin Dose 0.1 MG; Start 09/12/18 at 14:00 Multivit/Ca Carb/ B Cmplx/FA/Prenat (Berta-Shamika) 1 tab DAILY PO Last administered on 09/16/18 08:58; Admin Dose 1 TAB; Start 09/13/18 at 09:00 Hydromorphone HCl (Dilaudid) 0.5 mg Q4H PRN IV SEVERE PAIN LEVEL 7-10 Last administered on 09/14/18 21:08; Admin Dose 0.5 MG; Start 09/12/18 at 15:30 Ondansetron HCl (Zofran Inj) 4 mg Q4H PRN IV NAUSEA AND/OR VOMITING Last administered on 09/13/18 05:36; Admin Dose 4 MG; Start 09/12/18 at 22:00 Heparin Sodium (Porcine) (Heparin (1000 Units/ml)) 4,500 unit AFTER DIALYSIS CATHETER Last administered on 09/14/18 13:33; Admin Dose 4,500 UNIT; Start 09/12/18 at 22:00 Bumetanide (Bumex) 2 mg DAILY PO Last administered on 09/16/18 11:04; Admin Dose 2 MG; Start 09/14/18 at 09:00 Losartan Potassium (Cozaar) 50 mg BID PO Last administered on 09/16/18 08:59; Admin Dose 50 MG; Start 09/13/18 at 21:00 Nifedipine (Procardia Xl) 90 mg DAILY PO Last administered on 09/16/18 08:58; Admin Dose 90 MG; Start 09/15/18 at 09:00 Insulin Glargine (Lantus) 7 units DAILY@2000 SC Last administered on 09/15/18 21:03; Admin Dose 7 UNITS; Start 09/15/18 at 20:00 CINDY ZHANG MD Sep 16, 2018 12:24
[2018-09-16 15:10] VITALS: BP 110/66; PULSE 76; RESP 19
[2018-09-16 19:41] VITALS: BP 155/73; PULSE 65; RESP 16
[2018-09-16] MEDS: INSULIN GLARGINE [LANTus] (100 UNITS/ML) SYG SC SCH (20:39)
[2018-09-16] MEDS: ATORVASTATIN 20 MG TAB PO SCH (20:40)
[2018-09-17 01:28] VITALS: BP 151/74; PULSE 64; RESP 16
[2018-09-17 06:32] VITALS: BP 163/80
[2018-09-17 07:19] VITALS: BP 161/78; PULSE 72; RESP 18
[2018-09-17] MEDS: INSULIN ASPART [NOVOLOG] 3 ML PEN SC SCH ×6 (07:50→17:45)
[2018-09-17] MEDS: LOSARTAN 50 MG TAB PO SCH (08:26)
[2018-09-17] MEDS: BUMETANIDE 1 MG TAB PO SCH (08:26)
[2018-09-17] MEDS: MULTIVIT/CA CARB/B CMPLX/FA TAB PO SCH (08:27)
[2018-09-17] MEDS: NIFEdipine (XL) 90 MG TAB PO SCH (08:27)
[2018-09-17] MEDS: HEPARIN 5,000 UNIT/1 ML VIAL SC SCH (08:29)
[2018-09-17 13:49] VITALS: BP 158/78; PULSE 78; RESP 19
--- NOTE | 2018-09-17 15:55 | PN ---
Date/Time of Note Date/Time of Note DATE: 09/17/18 TIME: 15:54 Assessment/Plan VTE Prophylaxis Risk score (from Nsg)>0 risk: 3 SCD applied (from Nsg): Yes Pharmacological prophylaxis: NA/contraindicated Pharm contraindication: low risk/ambulating Lines/Catheters IV Catheter Type (from Nrs): perma cath Assessment/Plan Hospital Course SUBJECTIVE: No acute distress OBJECTIVE: Vital signs-see below PHYSICAL EXAM: Constitutional: Well-developed, adequately built, lying in bed comfortably. Psych: nl mood/affect, no complaints Head: atraumatic, normocephalic Eyes: nl conjunctiva, nl sclera ENMT: mucosa pink and moist, nl external ears & nose Neck: non-tender, supple Respiratory: clear to auscultation, normal air movement Cardiovascular: nl pulses, regular rate and rhythm Gastrointestinal: non-tender, soft, bowel sounds active in all 4 quadrants. Musculoskeletal/extremities: nl extremities to inspection, motor strength equal bilaterally, no focal deficit. Normal pulses,no cyanosis, no edema. Neurological: Alert oriented 3,nl speech, nl strength Skin: nl turgor ASSESSMENT/PLAN: 53-year-old male with CKD V, type 2 diabetes, dyslipidemia.. here with the progression of kidney disease. 1. End-stage renal disease. -Hemodialysis per renal. -Renal function 2. Diabetes mellitus type 2 -Adequate glycemic control -Basal/bolus insulin 3 Hyperlipidemia -on statin 4.Anemia of ESRD this can be treated at the dialysis center with Epogen 5. Hypertension -Stable. Continue antihypertensives DVT prophylaxis: Not indicated PUD prophylaxis: Not indicated CODE STATUS: Full code Diet: Renal/carbohydrate controlled. Disposition: Pending outpatient hemodialysis confirmation. As patient is going to stay tonight, awaiting for dialysis confirmation as outpatient, I will order a BMP in anticipation for in-house hemodialysis which he is due now. Patient was seen in collaboration with Dr. Teague. Result Diagram: [id number]/[id number] Results 24hrs Laboratory Tests Test 09/16/18 17:39 09/16/18 20:31 09/17/18 02:31 09/17/18 08:25 Bedside Glucose 123 219 157 83 Test 09/17/18 12:48 Bedside Glucose 200 Exam/Review of Systems Exam Vitals Vital Signs Date Temp Pulse Resp B/P (MAP) Pulse Ox O2 O2 Flow FiO2 Time Delivery Rate 09/17/18 97.2 78 19 158/78 96 13:49 (104) 09/17/18 Room Air 07:19 Intake and Output 09/16/18 09/16/18 09/17/18 1414:59 22:59 06:59 IntakeIntake Total 540 ml 150 ml 850 ml OutputOutput Total 1 ml BalanceBalance 539 ml 150 ml 850 ml Results Results 24hrs Laboratory Tests Test 09/16/18 17:39 09/16/18 20:31 09/17/18 02:31 09/17/18 08:25 Bedside Glucose 123 219 157 83 Test 09/17/18 12:48 Bedside Glucose 200 Medications Medication Current Medications IV Flush (NS 3 ml) 3 ml PER PROTOCOL IV ; Start 09/12/18 at 13:00 Acetaminophen/ Hydrocodone Bitart ([place] (5/325)) 1 tab Q6H PRN PO .MOD PAIN 4- 6 Last administered on 09/14/18at 02:33; Admin Dose 1 TAB; Start 09/12/18 at 13:00 Heparin Sodium (Porcine) (Heparin (5000 Units/1ml)) 5,000 unit Q12 SC Last administered on 09/17/18at 08:29; Admin Dose 5,000 UNIT; Start 09/12/18 at 21:00 Insulin Aspart (Novolog Insulin Pen) 5 unit WITH MEALS SC Last administered on 09/17/18at 12:50; Admin Dose 5 UNIT; Start 09/12/18 at 18:00 Insulin Aspart (Novolog Insulin Pen) NOVOLOG *MODERATE* ALGORITHM WITH MEALS BEDTIME SC Last administered on 09/17/18at 12:50; Admin Dose 4 UNIT; Start 09/12/18 at 18:00 Miscellaneous Information 1 ea NOTE XX ; Start 09/12/18 at 13:00 Glucose (Glutose) 15 gm Q15M PRN PO DECREASED GLUCOSE; Start 09/12/18 at 13:00 Glucose (Glutose) 22.5 gm Q15M PRN PO DECREASED GLUCOSE; Start 09/12/18 at 13:00 Dextrose (D50w Syringe) 25 ml Q15M PRN IV DECREASED GLUCOSE; Start 09/12/18 at 13:00 Dextrose (D50w Syringe) 50 ml Q15M PRN IV DECREASED GLUCOSE; Start 09/12/18 at 13:00 Glucagon (Glucagen) 1 mg Q15M PRN IM DECREASED GLUCOSE; Start 09/12/18 at 13:00 Glucose (Glutose) 15 gm Q15M PRN BUCCAL DECREASED GLUCOSE; Start 09/12/18 at 13:00 Atorvastatin Calcium (Lipitor) 20 mg QHS PO Last administered on 09/16/18 20:40; Admin Dose 20 MG; Start 09/12/18 at 21:00 Clonidine (Catapres) 0.1 mg Q8 PO Last administered on 09/17/18 14:20; Admin Dose 0.1 MG; Start 09/12/18 at 14:00 Multivit/Ca Carb/ B Cmplx/FA/Prenat (Berta-Shamika) 1 tab DAILY PO Last administered on 09/17/18 08:27; Admin Dose 1 TAB; Start 09/13/18 at 09:00 Hydromorphone HCl (Dilaudid) 0.5 mg Q4H PRN IV SEVERE PAIN LEVEL 7-10 Last administered on 09/14/18 21:08; Admin Dose 0.5 MG; Start 09/12/18 at 15:30 Ondansetron HCl (Zofran Inj) 4 mg Q4H PRN IV NAUSEA AND/OR VOMITING Last administered on 09/13/18 05:36; Admin Dose 4 MG; Start 09/12/18 at 22:00 Heparin Sodium (Porcine) (Heparin (1000 Units/ml)) 4,500 unit AFTER DIALYSIS CATHETER Last administered on 09/14/18 13:33; Admin Dose 4,500 UNIT; Start 09/12/18 at 22:00 Bumetanide (Bumex) 2 mg DAILY PO Last administered on 09/17/18 08:26; Admin Dose 2 MG; Start 09/14/18 at 09:00 Losartan Potassium (Cozaar) 50 mg BID PO Last administered on 09/17/18 08:26; Admin Dose 50 MG; Start 09/13/18 at 21:00 Nifedipine (Procardia Xl) 90 mg DAILY PO Last administered on 09/17/18 08:27; Admin Dose 90 MG; Start 09/15/18 at 09:00 Insulin Glargine (Lantus) 7 units DAILY@2000 SC Last administered on 09/16/18 20:39; Admin Dose 7 UNITS; Start 09/15/18 at 20:00 NATO SOTO NP Sep 17, 2018 15:55
--- NOTE | 2018-09-17 16:01 | PDOCDIS ---
Discharge Instructions CONDITION [id number] Patient Condition: [id number] Stable HOME CARE INSTRUCTIONS: [id number] Diet Instructions: [id number] ADA DIET [id number] Your diet recommendation is: [id number] Renal/carbohydrate controlled diet. ACTIVITY: [id number] Activity Restrictions: [id number] No Restrictions FOLLOW UP/APPOINTMENTS Follow-up Plan Follow-up with primary care physician in 1 week Follow-up with assigned hemodialysis unit for tomorrow scheduled dialysis at 5:30 PM Follow-up with advanced manufacturing technician. NATO SOTO NP Sep 17, 2018 16:01
[2018-09-17] MEDS ORDERED: BUME1TAB PO (16:03)
[2018-09-17] MEDS ORDERED: LOSA50TA2 PO (16:03)
[2018-09-17] MEDS ORDERED: NIFE90TA PO (16:03)
--- NOTE | 2018-09-17 16:08 | DS ---
Date/Time of Note Date/Time of Note DATE: 09/17/18 TIME: 16:06 Discharge Summary Admission/Discharge Info Admit Date/Time Sep 12, 2018 at 12:23 Discharge Date/Time Discharge Diagnosis SUBJECTIVE: No acute distress 1. End-stage renal disease, HD () 2. Diabetes mellitus type 2 3 Hyperlipidemia 4.Anemia of ESRD 5. Hypertension Patient Condition: Stable Consults , vp client services Procedures 09/12/2018.PROCEDURE: PLACEMENT OF RIGHT INTERNAL JUGULAR VENOUS TUNNELED DIALYSIS CATHETER. Hospital Course 53-year-old male with CKD V, type 2 diabetes, dyslipidemia.. here with the progression of kidney disease. Patient had nephrology evaluation. Patient underwent placement of right internal jugular venous tunneled dialysis catheter on 09/12/2018. He was then started on hemodialysis and was being managed by our vp client services. Patient did tolerate hemodialysis well. His renal function got better. Diuretic regimen be escalated to Bumex daily dose. Patient was also started on angiotensin receptor blockers and nifedipine for blood pressure management. Patient remained euvolemic and exam. He was able to tolerate diet and activities well. He was continued on insulin for underlying diabetes. Patient is continued on statin for dyslipidemia. Patient also had anemia of ESRD and he could benefit from Epo gen with hemodialysis. At this time, patient is medically/hemodynamically stable for outpatient follow-up. Hemodialysis unit was arranged by our disease case manager rn with insurance authorization. Please refer to their notes. Approximately 60 m spent on coordinating the discharge on this patient. Patient was seen in collaboration with Dr. Teague. Home Meds Active Scripts Nifedipine (Procardia Xl) 90 Mg Tab.er.24, 90 MG PO DAILY, #30 TAB Prov:SOTO,NATO V. GRAINER MACHINE 09/17/18 Losartan Potassium* (Cozaar*) 50 Mg Tablet, 50 MG PO BID, #60 TAB Prov:SOTO,NATO V. GRAINER MACHINE 09/17/18 Bumetanide* (Bumetanide*) 1 Mg Tablet, 2 MG PO DAILY, #30 TAB Prov:SOTO,NATO V. GRAINER MACHINE 09/17/18 Insulin Lispro (Humalog Kwikpen U-100) 100 Unit/1 Ml Insuln.pen, 5 UNIT SQ AC MEALS, #3 EA Prov:GREG CHILDS 9/13/18 Atorvastatin Calcium* (Atorvastatin Calcium*) 20 Mg Tablet, 20 MG PO QHS, #30 TAB Prov:GREG CHILDS 03/22/18 Clonidine Hcl* (Clonidine Hcl*) 0.1 Mg Tab, 0.1 MG PO Q8, #90 TAB Prov:GREG CHILDS 03/22/18 Reported Medications Calcium Acetate* (Calcium Acetate*) 667 Mg Capsule, 667 MG PO WITH MEALS, #30 CAP 09/12/18 Multivit/Ca Carb/B Cmplx/Fa* (Berta-Shamika*) 1 Tab Tab, 1 TAB PO DAILY, TAB 06/27/18 Insulin Glargine* (Lantus*) 100 Unit/Ml Soln, 10 UNIT SC QHS, #1 VIAL 06/27/18 Discontinued Reported Medications Carvedilol* (Carvedilol*) 6.25 Mg Tablet, 6.25 MG PO BID, #60 TAB 09/12/18 Discontinued Scripts Hydralazine Hcl* (Hydralazine Hcl*) 25 Mg Tab, 75 MG PO QID, #120 TAB Prov:RICHARD FONTANEZ NP 07/04/18 Aspirin Delayed Release (Aspirin Delayed Release) 81 Mg Tablet., 81 MG PO DAILY, #30 Prov:RICHARD FONTANEZ NP 07/04/18 Follow-up Plan Follow-up with primary care physician in 1 week Follow-up with assigned hemodialysis unit for tomorrow scheduled dialysis at 5:30 PM Follow-up with vp client services. Primary Care Provider Not On Staff Doctor Pending Labs Laboratory Tests Test 09/16/18 17:39 09/16/18 20:31 09/17/18 02:31 09/17/18 08:25 Bedside 123 219 157 83 Glucose mg/dL (70-220) mg/dL (70-220) mg/dL (70-220) mg/dL (70-220) Test 09/17/18 12:48 Bedside 200 Glucose mg/dL (70-220) NATO SOTO NP Sep 17, 2018 16:08
--- NOTE | 2018-09-17 17:41 | CONS ---
Assessment/Plan Assessment/Plan Assessment/Plan (Daily) - CKD stage 5 not yet on dialysis - DM / DM Nephropathy - HTN / HTN Nephrosclerosis - Anemia - Uremic PLAN: - Post tunnel Cath. insertion - On HD #2 now - Feels much better - BP remains elevated - START: Losartan 50 BID - Start EPOGEN for anemia - [facility] HD [facility]3 tomorrow & most probably D/C home HD #3 Feels better Had the vein mapping done HD is set up @ [facility] 12 pm ? origin of the pain CT was normal Will observe for the next 24 hours Check UA Still waiting for an out patient dialysis unit Not sure ? no communication from the binder caser Follow up with Labs Would have been cleared to discharge on monday Consultation Date/Type/Reason Admit Date/Time Sep 12, 2018 at 12:23 Initial Consult Date 09/13/18 Type of Consult - Nephrology Reason for Consultation - New dialysis patient Date/Time of Note DATE: 09/17/18 TIME: 17:39 24 HR Interval Summary Constitutional: no complaints, improved Exam/Review of Systems Exam Vitals Vital Signs Date Temp Pulse Resp B/P (MAP) Pulse Ox O2 O2 Flow FiO2 Time Delivery Rate 09/17/18 97.2 78 19 158/78 96 13:49 (104) 09/17/18 Room Air 07:19 Intake and Output 09/16/18 09/16/18 09/17/18 1515:00 23:00 07:00 IntakeIntake Total 540 ml 150 ml 850 ml OutputOutput Total 1 ml BalanceBalance 539 ml 150 ml 850 ml Constitutional: alert, oriented Respiratory: crackles/rales Cardiovascular: systolic murmur Gastrointestinal: soft Results Result Diagram: 09/15/18 0520 09/17/18 1610 Results 24hrs Laboratory Tests Test 09/16/18 20:31 09/17/18 02:31 09/17/18 08:25 09/17/18 12:48 Bedside Glucose 219 157 83 200 Test 09/17/18 16:10 Sodium Level 135 Potassium Level 4.7 Chloride Level 101 Carbon Dioxide Level 24 Anion Gap 10 Blood Urea Nitrogen 56 H Creatinine 6.62 H Est Glomerular 9 L Filtrat Rate mL/min Glucose Level 165 Calcium Level 8.4 Medications Medication Current Medications IV Flush (NS 3 ml) 3 ml PER PROTOCOL IV ; Start 09/12/18 at 13:00 Acetaminophen/ Hydrocodone Bitart (Delmita (5/325)) 1 tab Q6H PRN PO .MOD PAIN 4- 6 Last administered on 09/14/18at 02:33; Admin Dose 1 TAB; Start 09/12/18 at 13:00 Heparin Sodium (Porcine) (Heparin (5000 Units/1ml)) 5,000 unit Q12 SC Last administered on 09/17/18at 08:29; Admin Dose 5,000 UNIT; Start 09/12/18 at 21:00 Insulin Aspart (Novolog Insulin Pen) 5 unit WITH MEALS SC Last administered on 09/17/18at 12:50; Admin Dose 5 UNIT; Start 09/12/18 at 18:00 Insulin Aspart (Novolog Insulin Pen) NOVOLOG *MODERATE* ALGORITHM WITH MEALS BEDTIME SC Last administered on 09/17/18at 12:50; Admin Dose 4 UNIT; Start 09/12/18 at 18:00 Miscellaneous Information 1 ea NOTE XX ; Start 09/12/18 at 13:00 Glucose (Glutose) 15 gm Q15M PRN PO DECREASED GLUCOSE; Start 09/12/18 at 13:00 Glucose (Glutose) 22.5 gm Q15M PRN PO DECREASED GLUCOSE; Start 09/12/18 at 13:00 Dextrose (D50w Syringe) 25 ml Q15M PRN IV DECREASED GLUCOSE; Start 09/12/18 at 13:00 Dextrose (D50w Syringe) 50 ml Q15M PRN IV DECREASED GLUCOSE; Start 09/12/18 at 13:00 Glucagon (Glucagen) 1 mg Q15M PRN IM DECREASED GLUCOSE; Start 09/12/18 at 13:00 Glucose (Glutose) 15 gm Q15M PRN BUCCAL DECREASED GLUCOSE; Start 09/12/18 at 13:00 Atorvastatin Calcium (Lipitor) 20 mg QHS PO Last administered on 09/16/18 20:40; Admin Dose 20 MG; Start 09/12/18 at 21:00 Clonidine (Catapres) 0.1 mg Q8 PO Last administered on 09/17/18 14:20; Admin Dose 0.1 MG; Start 09/12/18 at 14:00 Multivit/Ca Carb/ B Cmplx/FA/Prenat (Berta-Shamika) 1 tab DAILY PO Last administered on 09/17/18 08:27; Admin Dose 1 TAB; Start 09/13/18 at 09:00 Hydromorphone HCl (Dilaudid) 0.5 mg Q4H PRN IV SEVERE PAIN LEVEL 7-10 Last administered on 09/14/18 21:08; Admin Dose 0.5 MG; Start 09/12/18 at 15:30 Ondansetron HCl (Zofran Inj) 4 mg Q4H PRN IV NAUSEA AND/OR VOMITING Last administered on 09/13/18 05:36; Admin Dose 4 MG; Start 09/12/18 at 22:00 Heparin Sodium (Porcine) (Heparin (1000 Units/ml)) 4,500 unit AFTER DIALYSIS CATHETER Last administered on 09/14/18 13:33; Admin Dose 4,500 UNIT; Start 09/12/18 at 22:00 Bumetanide (Bumex) 2 mg DAILY PO Last administered on 09/17/18 08:26; Admin Dose 2 MG; Start 09/14/18 at 09:00 Losartan Potassium (Cozaar) 50 mg BID PO Last administered on 09/17/18 08:26; Admin Dose 50 MG; Start 09/13/18 at 21:00 Nifedipine (Procardia Xl) 90 mg DAILY PO Last administered on 09/17/18 08:27; Admin Dose 90 MG; Start 09/15/18 at 09:00 Insulin Glargine (Lantus) 7 units DAILY@2000 SC Last administered on 09/16/18 20:39; Admin Dose 7 UNITS; Start 09/15/18 at 20:00 PAULINA SMITH MD Sep 17, 2018 17:41
== END 2018-09-17 18:38 | disposition home or self-care (01) | DRG 673 ==
LOC: E/R 10:24 → 6WM 12:23 → CANRESERV 15:53 → MS1 09-15 21:17
PROVIDERS: ADMIT Internal Medicine; ATTEND Internal Medicine
PROC: 02H633Z Insertion of Infusion Device into Right Atrium, Percutaneous Approach (ICD-10-PCS; 2018-09-12)
PROC: 5A1D70Z Performance of Urinary Filtration, Intermittent, Less than 6 Hours Per Day (ICD-10-PCS; 2018-09-12)
PROC: 0JH63XZ Insertion of Tunneled Vascular Access Device into Chest Subcutaneous Tissue and Fascia, Percutaneous Approach (ICD-10-PCS; principal; 2018-09-12 15:00)
DX: I12.0 Hypertensive chronic kidney disease with stage 5 chronic kidney disease or end stage renal disease (principal); N18.6 End stage renal disease; I31.3 Pericardial effusion (noninflammatory); I31.9 Disease of pericardium, unspecified; E11.22 Type 2 diabetes mellitus with diabetic chronic kidney disease; E78.5 Hyperlipidemia, unspecified; E11.21 Type 2 diabetes mellitus with diabetic nephropathy; D63.1 Anemia in chronic kidney disease; E87.5 Hyperkalemia; R10.11 Right upper quadrant pain
CPT/HCPCS: 71045; 74176; 76937; 80048; 80053; 80076; 81001; 82962; 83036; 85025; 86706; 86708; 86850; 86900; 86901; 87340; 90935; 93005; 93970; J0360; J1170; J1644; J1815; J2250; J2405; J3010; Q9967

== ENCOUNTER 2018-12-09 19:47 | Inpatient (IN) | payer OTHER ==
[~2018-12-09] VITALS: Ht 167.6 cm; Wt 70.8 kg
[~2018-12-09 19:47] MED LIST changes: -ASPI-1044 PO; +CALC667C PO; -HYDR-3671 PO; +LOSA50TA2 PO; +NIFE90TA PO
[2018-12-09] MEDS ORDERED: morphine 4 MG/ML VIAL IV STA (20:56)
[2018-12-09] MEDS ORDERED: ONDANSETRON 4 MG INJ IV STA (20:56)
[2018-12-09] MEDS ORDERED: HYDROmorphONE 0.5 MG/0.5 ML SYG IV STA (21:45)
[2018-12-10] VITALS (11 sets, daily range): BP systolic 158–198; BP diastolic 80–101; PULSE 74–93; RESP 17–20; Ht 167.6 cm; Wt 70.8 kg
--- NOTE | 2018-12-10 00:35 | ERD ---
ER Documentation Chief Complaint Chief Complaint RLQ PAIN X'S 1 MONTH, PAIN INCREASING HPI This very pleasant 54 months of right lower quadrant right upper quadrant pain for the past month is getting progressively worse. He said the pain got significantly worse over the past 2 days. Mild nausea but no vomiting. Patient is newly diagnosed with end-stage renal disease started dialysis approximately 2 months ago. No fevers no chills. No other current complaints. Pain is mild to moderate in intensity with no exacerbating alleviating factors. ROS All systems reviewed and are negative except as per history of present illness. Medications Home Meds Active Scripts Nifedipine (Procardia Xl) 90 Mg Tab.er.24, 90 MG PO DAILY, #30 TAB Prov:SOTO,NATO V. PC MAINTENANCE TECHNICIAN 09/17/18 Losartan Potassium* (Cozaar*) 50 Mg Tablet, 50 MG PO BID, #60 TAB Prov:SOTO,NATO V. PC MAINTENANCE TECHNICIAN 09/17/18 Bumetanide* (Bumetanide*) 1 Mg Tablet, 2 MG PO DAILY, #30 TAB Prov:SOTOPOORNIMAA V. PC MAINTENANCE TECHNICIAN 09/17/18 Insulin Lispro (Humalog Kwikpen U-100) 100 Unit/1 Ml Insuln.pen, 5 UNIT SQ AC MEALS, #3 EA Prov:GREG CHILDS PC MAINTENANCE TECHNICIAN 03/22/18 Atorvastatin Calcium* (Atorvastatin Calcium*) 20 Mg Tablet, 20 MG PO QHS, #30 TAB Prov:GREG CHILDS PC MAINTENANCE TECHNICIAN 03/22/18 Clonidine Hcl* (Clonidine Hcl*) 0.1 Mg Tab, 0.1 MG PO Q8, #90 TAB Prov:GREG CHILDS PC MAINTENANCE TECHNICIAN 03/22/18 Reported Medications Calcium Acetate* (Calcium Acetate*) 667 Mg Capsule, 667 MG PO WITH MEALS, #30 CAP 09/12/18 Multivit/Ca Carb/B Cmplx/Fa* (Berta-Shamika*) 1 Tab Tab, 1 TAB PO DAILY, TAB 06/27/18 Insulin Glargine* (Lantus*) 100 Unit/Ml Soln, 10 UNIT SC QHS, #1 VIAL 06/27/18 Allergies Allergies: Coded Allergies: No Known Allergy (Unverified , 09/12/18) PMhx/Soc History of Surgery: No Anesthesia Reaction: No Hx Neurological Disorder: No Hx Respiratory Disorders: No Hx Cardiac Disorders: Yes (HTN) Hx Psychiatric Problems: No Hx Miscellaneous Medical Probl: Yes (diabetes,chronic kidney,on HD T ThSat,anuria) Hx Alcohol Use: No Hx Substance Use: No Hx Tobacco Use: Yes (quit) Smoking Status: Former smoker Physical Exam Vitals Vital Signs Date Temp Pulse Resp B/P (MAP) Pulse Ox O2 O2 Flow FiO2 Time Delivery Rate 12/10/18 78 12 162/88 98 Room Air 00:00 (112) 12/09/18 80 13 160/85 98 Room Air 23:30 (110) 12/09/18 79 12 150/85 98 Room Air 23:00 (106) 12/09/18 81 14 155/83 98 Room Air 22:30 (107) 12/09/18 87 21 159/85 99 Room Air 22:00 (109) 12/09/18 86 15 165/89 99 Room Air 21:43 (114) 12/09/18 87 23 174/88 100 Room Air 21:00 (116) 12/09/18 93 14 188/93 100 Room Air 20:13 (124) 12/09/18 98.2 90 18 206/98 98 19:49 (134) Physical Exam Const: No acute distress Head: Atraumatic Eyes: Normal Conjunctiva ENT: Normal External Ears, Nose and Mouth. Neck: Full range of motion. No meningismus. Resp: Clear to auscultation bilaterally Cardio: Regular rate and rhythm, no murmurs Abd: Soft, non tender, non distended. Normal bowel sounds Skin: No petechiae or rashes Back: No midline or flank tenderness Ext: No cyanosis, or edema Neur: Awake and alert Psych: Normal Mood and Affect Result Diagram: 12/09/18209912/09/18 2100 Results 24 hrs Laboratory Tests Test 12/09/18 21:00 White Blood Count 7.2 10^3/ul Red Blood Count 4.20 10^6/ul Hemoglobin 12.6 g/dl Hematocrit 38.3 % Mean Corpuscular Volume 91.2 fl Mean Corpuscular Hemoglobin 30.0 pg Mean Corpuscular Hemoglobin Concent 32.9 g/dl Red Cell Distribution Width 13.1 % Platelet Count 187 10^3/UL Mean Platelet Volume 11.5 fl Immature Granulocytes % 0.300 % Neutrophils % 59.1 % Lymphocytes % 22.1 % Monocytes % 11.8 % Eosinophils % 5.7 % Basophils % 1.0 % Nucleated Red Blood Cells % 0.0 /100WBC Immature Granulocytes # 0.020 10^3/ul Neutrophils # 4.3 10^3/ul Lymphocytes # 1.6 10^3/ul Monocytes # 0.9 10^3/ul Eosinophils # 0.4 10^3/ul Basophils # 0.1 10^3/ul Nucleated Red Blood Cells # 0.0 10^3/ul Sodium Level 136 mmol/L Potassium Level 5.9 mmol/L Chloride Level 100 mmol/L Carbon Dioxide Level 27 mmol/L Anion Gap 9 Blood Urea Nitrogen 53 mg/dl Creatinine 7.26 mg/dl Est Glomerular Filtrat Rate mL/min 8 mL/min Glucose Level 349 mg/dl Calcium Level 8.7 mg/dl Total Bilirubin 0.2 mg/dl Direct Bilirubin 0.00 mg/dl Indirect Bilirubin 0.2 mg/dl Aspartate Amino Transf (AST/SGOT) 61 IU/L Alanine Aminotransferase (ALT/SGPT) 44 IU/L Alkaline Phosphatase 86 IU/L Troponin I < 0.012 ng/ml Total Protein 7.0 g/dl Albumin 4.0 g/dl Globulin 3.00 g/dl Albumin/Globulin Ratio 1.33 Lipase 242 U/L Current Medications Medications Dose Sig/Thai Start Time Status Last (Trade) Ordered Route PRN Stop Time Admin Dose Reason Admin Morphine 4 mg ONCE STAT 12/09/18 DC 12/09/18 Sulfate IV 20:56 12/09/18 21:09 (morphine) 20:58 Ondansetron 4 mg ONCE STAT 12/09/18 DC 12/09/18 HCl (Zofran IV 20:56 12/09/18 21:09 Inj) 20:58 1 mg ONCE STAT 12/09/18 DC 12/09/18 Hydromorphone IV 21:45 12/09/18 21:53 HCl 21:46 (Dilaudid) Procedures/MDM EKG: Rate/Rhythm: [Normal Sinus Rhythm] QRS, ST, T-waves: [No changes consistent w/ acute ischemia] Impression: [No evidence of ischemia or arrhythmia] Chest X-ray 1V Interpreted by me: Soft Tissue: No acute abnormalities Bones: No acute abnormalities Mediastinum/Cardiac Silhouette/Lungs: [No acute abnormalities] Medical decision makin-year-old male here with increasing abdominal pain. Pancreatitis on CAT scan. Patient will be admitted to Dr. Menchaca for further evaluation and management. Departure Diagnosis: Primary Impression: Abdominal pain Abdominal location: unspecified location Qualified Codes: R10.9 - Unspecified abdominal pain Condition: DARRYL Tovar Dec 10, 2018 00:35
[2018-12-10] MEDS ORDERED: NACL 0.9% 3 ML SYG IV SCH (01:00)
[2018-12-10] MEDS ORDERED: ONDANSETRON 4 MG INJ IV PRN (01:00)
--- NOTE | 2018-12-10 01:02 | HP ---
Date/Time of Note Date/Time of Note DATE: 12/10/18 TIME: 00:50 Assessment/Plan VTE Prophylaxis SCD applied (from Nsg): Yes Pharmacological prophylaxis: NA/contraindicated Pharm contraindication: low risk/ambulating Lines/Catheters IV Catheter Type (from Nrsg): Saline Lock Assessment/Plan Assessment/Plan 53 yo man ESRD on HD presents with acute on chronic abdominal pain #Abdominal pain - Very unusual acute on chronic presentation with exquisite skin sensitivity but tolerating diet without nausea or vomiting. - CT suggests possible early pancreatitis. - May also be diabetic neuropathy? Would be very unusual to start in the abdomen. He has good sensation in the feet. - For now will start NPO. Due to ESRD hold off on IV fluids. Protonix BID. #ESRD #Hyperkalemia - EKG reviewed without QRS widening or peaked Ts - Will need to consult [facility] in the AM for routine dialysis. #IDDM - Continue home lantus. Hold mealtime insulin, mild sliding scale instead. - Check HgbA1C DVT: SCDs GI: None Result Diagram: 12/09/18209912/09/182099 HPI/ROS Admit Date/Time Admit Date/Time 09 December 2018 Hx of Present Illness Mr. Santo is a 53 yo man with ESRD recently started on HD who presents with acute on chronic abdominal pain. He reports about a month of intermittent episodes of sharp stabbing RUQ+epigastric abdominal pain, episodes self-resolve. Today the pain was significantly worse, has had a stabbing pain since this afternoon that will not resolve. He also has exquisite skin sensitivity and his shirt brushing against his abdomen is very uncomfortable. He ate around 7 pm tonight, food does not worsen the pain but does sometimes cause sweating. He denies nausea or vomiting. He has ESRD and was recently started on HD by Dr. Gaspar via R chest permacath. He is scheduled for L arm AV fistula placement. Last dialysis was yesterday (Monday) and he got the full session. Also says he's compliant with insulin, AM blood sugars usually 120s-140s. In the ED he was afebrile, hypertensive to 206/98, otherwise vitals unremarka ble. Labs notable for BS 349, K 5.9, BUN 53. CT abdomen was done showing possible early pancreatitis. ROS He denies fever, chills, night sweats, anorexia, weight loss, headache, dizziness, vertigo, dysphagia, sore throat, nausea, vomiting, chest pain/pressure/palpitations, dyspnea, cough, diarrhea, constipation, dysuria, hematuria, flank pain, melena. Produces >1 cup of urine per day. PMH/Family/Social Past Medical History ESRD on HD //Mon Insulin-dependent diabetes Medications Current Medications IV Flush (NS 3 ml) 3 ml PER PROTOCOL IV ; Start 12/10/18 at 01:00; Status UNV Ondansetron HCl (Zofran Inj) 4 mg Q6H PRN IV NAUSEA/VOMITING; Start 12/10/18 at 01:00; Status UNV Hydromorphone HCl (Dilaudid) 2 mg Q4H PRN IV .SEVERE PAIN 7-10; Start 12/10/18 at 01:00; Status UNV Pantoprazole (Protonix Iv) 40 mg BID@06,18 IV ; Start 12/10/18 at 06:00; Status UNV Coded Allergies: No Known Allergy (Unverified , 09/12/18) Past Surgical History Past Surgical Hx: no surgical history Family History Significant Family History: no pertinent family hx Social History Alcohol Use: none Smoking Status: Former smoker Drug Use: none Exam/Review of Systems Vital Signs Vitals Vital Signs Date Temp Pulse Resp B/P (MAP) Pulse Ox O2 O2 Flow FiO2 Time Delivery Rate 12/10/18 87 20 182/95 98 Room Air 00:33 (124) 12/09/18 98.2 19:49 Exam Exam Gen: Well developed man in [facility] in some discomfort. Eyes: PERRL, no icterus HEENT: Moist mucous membranes, clear oropharynx Neck:Supple, no lymphadenopathy Chest: R chest permacath in palce. Card: Regular rate and rhythm, no murmurs Pulm: Clear to auscultation bilaterally, no wheezing Abd: Soft, nondistended. Guarding throughout. Moderate palpation anywhere causes grimacing. Even lightly touching the skin on the R side causes grimacing. Ext: No cyanosis/clubbing/edema, good peripheral pulses. Skin: warm, dry, well perfused. CANDY IRBY MD Dec 10, 2018 01:02
[2018-12-10] MEDS ORDERED: FAMOTIDINE 20 MG INJ IV SCH (01:30)
[2018-12-10] MEDS: ACCU-CHEK XX SCH (02:29)
[2018-12-10] MEDS: INSULIN ASPART [NOVOLOG] 3 ML PEN SC SCH ×4 (02:32→18:24)
[2018-12-10] MEDS: HYDROmorphONE 0.5 MG/0.5 ML SYG IV PRN ×2 (02:41→17:18)
[2018-12-10] MEDS ORDERED: PANTOPRAZOLE 40 MG INJ IV SCH (06:00)
[2018-12-10] MEDS: CALCIUM ACETATE 667 MG CAP PO SCH ×3 (08:17→17:17)
[2018-12-10] MEDS: NIFEdipine (XL) 90 MG TAB PO SCH (08:17)
--- NOTE | 2018-12-10 10:24 | CONS ---
Assessment/Plan Assessment/Plan Assessment/Plan (Daily) - ESRD on Hemodialysis MW @ [facility] - Hyperkalemia - DM / DM nephropathy - Hypertension - Hyperphosphatemia - Abdomen pain PLAN: - CT abdomen reviewed ? source of Abdomen pain - Constipation for the past 2-4 days - Remains NPO - Hyperkalemia secondary to above - Will plan for Dialysis to correct hyperkalemia - Avoid over Ultrafiltration on HD - Keep I/O even to slight positive - Follow up with work up for Abdomen pain - Follow up with Potassium THANK YOU VKarol ZIEGLER Consultation Date/Type/Reason Admit Date/Time 09 December 2018 Date of Consultation: Dec 10, 2018 Type of Consult -Nephrology Reason for Consultation - ESRD on Hemodialysis @ [facility] ( [facility] ) Date/Time of Note DATE: 12/10/18 TIME: 10:17 Constitutional: no complaints Eyes: no complaints ENT: no complaints Respiratory: no complaints Cardiovascular: no complaints Gastrointestinal: pain Genitourinary: no complaints Musculoskeletal: no complaints Past Medical History Medical History: congestive heart failure, coronary artery disease, hypertension, renal disease Home Meds Active Scripts Nifedipine (Procardia Xl) 90 Mg Tab.er.24, 90 MG PO DAILY, #30 TAB Prov:SOTO,NATO V. STRIP MACHINE OPERATOR 09/17/18 Losartan Potassium* (Cozaar*) 50 Mg Tablet, 50 MG PO BID, #60 TAB Prov:SOTO,NATO V. STRIP MACHINE OPERATOR 09/17/18 Bumetanide* (Bumetanide*) 1 Mg Tablet, 2 MG PO DAILY, #30 TAB Prov:SOTOPOORNIMAA Jeronimo. STRIP MACHINE OPERATOR 09/17/18 Insulin Lispro (Humalog Kwikpen U-100) 100 Unit/1 Ml Insuln.pen, 5 UNIT SQ AC MEALS, #3 EA Prov:GREG CHILDS STRIP MACHINE OPERATOR 03/22/18 Atorvastatin Calcium* (Atorvastatin Calcium*) 20 Mg Tablet, 20 MG PO QHS, #30 TAB Prov:GREG CHILDS STRIP MACHINE OPERATOR 03/22/18 Clonidine Hcl* (Clonidine Hcl*) 0.1 Mg Tab, 0.1 MG PO Q8, #90 TAB Prov:GREG CHILDS STRIP MACHINE OPERATOR 03/22/18 Reported Medications Calcium Acetate* (Calcium Acetate*) 667 Mg Capsule, 667 MG PO WITH MEALS, #30 CAP 09/12/18 Multivit/Ca Carb/B Cmplx/Fa* (Berta-Shamika*) 1 Tab Tab, 1 TAB PO DAILY, TAB 06/27/18 Insulin Glargine* (Lantus*) 100 Unit/Ml Soln, 10 UNIT SC QHS, #1 VIAL 06/27/18 Medications Current Medications IV Flush (NS 3 ml) 3 ml PER PROTOCOL IV ; Start 12/10/18 at 01:00 Ondansetron HCl (Zofran Inj) 4 mg Q6H PRN IV NAUSEA/VOMITING Last administered on 12/10/18 02:40; Admin Dose 4 MG; Start 12/10/18 at 01:00 Hydromorphone HCl (Dilaudid) 2 mg Q4H PRN IV .SEVERE PAIN 7-10 Last administere d on 12/10/18at 02:41; Admin Dose 2 MG; Start 12/10/18 at 01:00 Atorvastatin Calcium (Lipitor) 20 mg QHS PO ; Start 12/10/18 at 21:00 Calcium Acetate (Phoslo) 667 mg WITH MEALS PO Last administered on 12/10/18at 08:17; Admin Dose 667 MG; Start 12/10/18 at 08:00 Clonidine (Catapres) 0.1 mg Q8 PO Last administered on 12/10/18at 06:37; Admin Dose 0.1 MG; Start 12/10/18 at 06:00 Insulin Glargine (Lantus) 10 units QHS SC ; Start 12/10/18 at 21:00 Nifedipine (Procardia Xl) 90 mg DAILY PO Last administered on 12/10/18at 08:17; Admin Dose 90 MG; Start 12/10/18 at 09:00 Diagnostic Test (Pha) (Accu-Chek) 1 ea 02 XX Last administered on 12/10/18 02:29; Admin Dose 1 EA; Start 12/10/18 at 02:00 Insulin Aspart (Novolog Insulin Pen) NOVOLOG *MILD* ALGORITHM Q6H SC Last administered on 12/10/18at 02:32; Admin Dose 1 UNIT; Start 12/10/18 at 01:00 Famotidine (Pepcid Iv) 20 mg Q24H IV Last administered on 12/10/18at 02:31; Admin Dose 20 MG; Start 12/10/18 at 01:30 Allergies: Coded Allergies: No Known Allergy (Unverified , 09/12/18) Past Surgical History Past Surgical Hx: no surgical history Family History Significant Family History: no pertinent family hx Social History Alcohol Use: none Smoking Status: Former smoker Drug Use: none Exam/Review of Systems Exam Vitals Vital Signs Date Temp Pulse Resp B/P (MAP) Pulse Ox O2 O2 Flow FiO2 Time Delivery Rate 12/10/18 82 198/97 08:58 (130) 12/10/18 98.4 17 97 07:34 12/10/18 Room Air 02:30 Constitutional: alert, oriented, well developed Psych: no complaints Head: normocephalic Eyes: nl conjunctiva ENMT: nl external ears & nose Neck: supple Respiratory: crackles/rales Cardiovascular: systolic murmur Gastrointestinal: firm, tender Results Result Diagram: 12/09/18 2100 12/09/18 2100 Results 24hrs Laboratory Tests Test 12/09/18 21:00 12/10/18 02:28 12/10/18 04:57 12/10/18 04:59 White Blood Count 7.2 # Red Blood Count 4.20 #L Hemoglobin 12.6 #L Hematocrit 38.3 #L Mean Corpuscular Volume 91.2 Mean Corpuscular 30.0 Hemoglobin Mean Corpuscular 32.9 Hemoglobin Concent Red Cell Distribution 13.1 Width Platelet Count 187 Mean Platelet Volume 11.5 H Immature Granulocytes % 0.300 Neutrophils % 59.1 Lymphocytes % 22.1 Monocytes % 11.8 H Eosinophils % 5.7 Basophils % 1.0 Nucleated Red Blood 0.0 Cells % Immature Granulocytes # 0.020 Neutrophils # 4.3 Lymphocytes # 1.6 Monocytes # 0.9 Eosinophils # 0.4 Basophils # 0.1 Nucleated Red Blood 0.0 Cells # Sodium Level 136 Potassium Level 5.9 H Chloride Level 100 Carbon Dioxide Level 27 Anion Gap 9 Blood Urea Nitrogen 53 H Creatinine 7.26 H Est Glomerular Filtrat 8 L Rate mL/min Glucose Level 349 H Calcium Level 8.7 Total Bilirubin 0.2 Direct Bilirubin 0.00 Indirect Bilirubin 0.2 Aspartate Amino 61 H Transf (AST/SGOT) Alanine 44 Aminotransferase (ALT/SG PT) Alkaline Phosphatase 86 Troponin I < 0.012 Total Protein 7.0 Albumin 4.0 Globulin 3.00 Albumin/Globulin Ratio 1.33 Lipase 242 Bedside Glucose 180 Hepatitis B Surface NEGATIVE Antigen Triglycerides Level 119 Cholesterol Level 123 LDL Cholesterol, 45 Calculated HDL Cholesterol 54 Cholesterol/HDL Ratio 2.2 Test 12/10/18 08:41 Bedside Glucose 140 Imaging Imaging FINDINGS: The lung bases are clear. There has been resolution of the bilateral pleural effusions. There is decreased pericardial effusion - mild to moderate. The aorta and its branches are normal in size and caliber. The kidneys are symmetric in size and density. There is no perinephric fat stranding. There is no nephroureterolithiasis or hydronephrosis. There is similar appearance of the 8 mm cortically based cyst within the mid-left kidney. The ureters are normal in course and caliber. Evaluation of solid organs is limited due to the lack of intravenous contrast. There is slight increased enlargement of the pancreas compared to the prior study with mild hazy fat stranding surrounding the pancreas more prominent around the pancreatic head on axial images 64 - 69 and coronal images 38 - 40. No adjacent peripancreatic fluid collections are present. The liver, gallbladder, spleen, and adrenal glands are unremarkable. Evaluation of the gastrointestinal tract is limited due to the lack of oral contrast. The distal esophagus is unremarkable. The stomach is mildly distended with debris and grossly unremarkable. The small bowel loops are normal in caliber without evidence of small bowel obstruction. The appendix is visualized, and is unremarkable. There is no free intraperitoneal fluid or pneumoperitoneum. There is no mesenteric, retroperitoneal, or pelvic lymphadenopathy. The bladder is mildly distended, but grossly unremarkable. The prostate and seminal vesicles are unremarkable. There is no pelvic free fluid. Multilevel mild to moderate degenerative disc disease within the thoracolumbar spine is noted. There are no acute fractures. IMPRESSION: 1. Slight increased enlargement of the pancreas since 09/2018 with mild yousif pancreatic fat stranding which can be seen with developing early acute pancreatitis. 2. Decreased pericardial effusion - mild to moderate. 3. Resolution of the bilateral pleural effusions Medications Medication Current Medications IV Flush (NS 3 ml) 3 ml PER PROTOCOL IV ; Start 12/10/18 at 01:00 Ondansetron HCl (Zofran Inj) 4 mg Q6H PRN IV NAUSEA/VOMITING Last administered on 12/10/18at 02:40; Admin Dose 4 MG; Start 12/10/18 at 01:00 Hydromorphone HCl (Dilaudid) 2 mg Q4H PRN IV .SEVERE PAIN 7-10 Last administered on 12/10/18 02:41; Admin Dose 2 MG; Start 12/10/18 at 01:00 Atorvastatin Calcium (Lipitor) 20 mg QHS PO ; Start 12/10/18 at 21:00 Calcium Acetate (Phoslo) 667 mg WITH MEALS PO Last administered on 12/10/18 08:17; Admin Dose 667 MG; Start 12/10/18 at 08:00 Clonidine (Catapres) 0.1 mg Q8 PO Last administered on 12/10/18 06:37; Admin Dose 0.1 MG; Start 12/10/18 at 06:00 Insulin Glargine (Lantus) 10 units QHS SC ; Start 12/10/18 at 21:00 Nifedipine (Procardia Xl) 90 mg DAILY PO Last administered on 12/10/18 08:17; Admin Dose 90 MG; Start 12/10/18 at 09:00 Diagnostic Test (Pha) (Accu-Chek) 1 ea 02 XX Last administered on 12/10/18 02:29; Admin Dose 1 EA; Start 12/10/18 at 02:00 Insulin Aspart (Novolog Insulin Pen) NOVOLOG *MILD* ALGORITHM Q6H SC Last administered on 12/10/18 02:32; Admin Dose 1 UNIT; Start 12/10/18 at 01:00 Famotidine (Pepcid Iv) 20 mg Q24H IV Last administered on 12/10/18 02:31; Admin Dose 20 MG; Start 12/10/18 at 01:30 PAULINA SMITH MD Dec 10, 2018 10:24
--- NOTE | 2018-12-10 11:16 | PN ---
Date/Time of Note Date/Time of Note DATE: 12/10/18 TIME: 11:16 Assessment/Plan VTE Prophylaxis Risk score (from Nsg)>0 risk: 1 SCD applied (from Nsg): Yes Pharmacological prophylaxis: NA/contraindicated Pharm contraindication: low risk/ambulating Lines/Catheters IV Catheter Type (from Nrsg): Saline Lock Urinary Cath still in place: No Assessment/Plan Hospital Course SUBJECTIVE: Lying in bed, having 10 out of 10 pain on periumbilical area. No nausea, vomiting, diarrhea, constipation. OBJECTIVE: Vital signs-see below PHYSICAL EXAM: Constitutional: Adequately built,not in acute distress. HEENT: Head atraumatic and normocephalic. Eyes: Extraocular muscles intact. Anicteric sclerae. Pupils equal bilaterally, reactive to light. NECK: Supple without lymph node. CHEST: Clear and good breath sounds equally. No wheezing. No rhonchi. HEART: S1, S2. Regular rate and rhythm. ABDOMEN: +Tenderness periumblical area. no rebound tenderness. Bowel sounds were present. EXTREMITIES: No cyanosis, clubbing or edema. NEUROLOGIC: Alert and oriented x3. No focal deficit. No sensory deficit. PSYCHOSOCIAL: No signs of depression. INTEGUMENTARY: No open wounds. ASSESSMENT AND PLAN:53 yo M w/ESRD/HD TTS, DM.htn,dlp, here w/1 mionth duration of periumblical pain... Abdominal,pain ~1 mos -CT suggestive of possible early pancreatitis. Lipase normal. Diabetic gastro paresis/PUD/Gastritis in diffrential.. -NM gastric empty study in light of poorly controlled DM -Bowel rest until symptoms improve -GI consult to rule out other causes of abdominal pain ESRD/HD TTS -Nephrology managing this Hyperkalemia -We will repeat potassium level. Stable EKG. IDDM, poorly controlled -Basal/Bolus insulin Essential hypertension -poorly managed -cont orocardia/clonidine -hold ARB 2/2 hyperkalemia and add low dose BB -UF Dyslipidemia -cont statin DVT prophylaxis: SCDs PUD prophylaxis: Pepcid Disposition: Continue current management. Follow-up GI recommendations. Next Patient is seen in collaboration with Dr. Teague Result Diagram: 12/09/18 2100 12/09/18 2100 Results 24hrs Laboratory Tests Test 12/09/18 21:00 12/10/18 02:28 12/10/18 04:57 12/10/18 04:59 White Blood Count 7.2 # Red Blood Count 4.20 #L Hemoglobin 12.6 #L Hematocrit 38.3 #L Mean Corpuscular Volume 91.2 Mean Corpuscular 30.0 Hemoglobin Mean Corpuscular 32.9 Hemoglobin Concent Red Cell Distribution 13.1 Width Platelet Count 187 Mean Platelet Volume 11.5 H Immature Granulocytes % 0.300 Neutrophils % 59.1 Lymphocytes % 22.1 Monocytes % 11.8 H Eosinophils % 5.7 Basophils % 1.0 Nucleated Red Blood 0.0 Cells % Immature Granulocytes # 0.020 Neutrophils # 4.3 Lymphocytes # 1.6 Monocytes # 0.9 Eosinophils # 0.4 Basophils # 0.1 Nucleated Red Blood 0.0 Cells # Sodium Level 136 Potassium Level 5.9 H Chloride Level 100 Carbon Dioxide Level 27 Anion Gap 9 Blood Urea Nitrogen 53 H Creatinine 7.26 H Est Glomerular Filtrat 8 L Rate mL/min Glucose Level 349 H Calcium Level 8.7 Total Bilirubin 0.2 Direct Bilirubin 0.00 Indirect Bilirubin 0.2 Aspartate Amino 61 H Transf (AST/SGOT) Alanine 44 Aminotransferase (ALT/SG PT) Alkaline Phosphatase 86 Troponin I < 0.012 Total Protein 7.0 Albumin 4.0 Globulin 3.00 Albumin/Globulin Ratio 1.33 Lipase 242 Bedside Glucose 180 Hepatitis B Surface NEGATIVE Antigen Triglycerides Level 119 Cholesterol Level 123 LDL Cholesterol, 45 Calculated HDL Cholesterol 54 Cholesterol/HDL Ratio 2.2 Test 12/10/18 08:41 Bedside Glucose 140 Exam/Review of Systems Exam Vitals Vital Signs Date Temp Pulse Resp B/P (MAP) Pulse Ox O2 O2 Flow FiO2 Time Delivery Rate 12/10/18 82 198/97 08:58 (130) 12/10/18 98.4 17 97 07:34 12/10/18 Room Air 02:30 Results Results 24hrs Laboratory Tests Test 12/09/18 21:00 12/10/18 02:28 12/10/18 04:57 12/10/18 04:59 White Blood Count 7.2 # Red Blood Count 4.20 #L Hemoglobin 12.6 #L Hematocrit 38.3 #L Mean Corpuscular Volume 91.2 Mean Corpuscular 30.0 Hemoglobin Mean Corpuscular 32.9 Hemoglobin Concent Red Cell Distribution 13.1 Width Platelet Count 187 Mean Platelet Volume 11.5 H Immature Granulocytes % 0.300 Neutrophils % 59.1 Lymphocytes % 22.1 Monocytes % 11.8 H Eosinophils % 5.7 Basophils % 1.0 Nucleated Red Blood 0.0 Cells % Immature Granulocytes # 0.020 Neutrophils # 4.3 Lymphocytes # 1.6 Monocytes # 0.9 Eosinophils # 0.4 Basophils # 0.1 Nucleated Red Blood 0.0 Cells # Sodium Level 136 Potassium Level 5.9 H Chloride Level 100 Carbon Dioxide Level 27 Anion Gap 9 Blood Urea Nitrogen 53 H Creatinine 7.26 H Est Glomerular Filtrat 8 L Rate mL/min Glucose Level 349 H Calcium Level 8.7 Total Bilirubin 0.2 Direct Bilirubin 0.00 Indirect Bilirubin 0.2 Aspartate Amino 61 H Transf (AST/SGOT) Alanine 44 Aminotransferase (ALT/SG PT) Alkaline Phosphatase 86 Troponin I < 0.012 Total Protein 7.0 Albumin 4.0 Globulin 3.00 Albumin/Globulin Ratio 1.33 Lipase 242 Bedside Glucose 180 Hepatitis B Surface NEGATIVE Antigen Triglycerides Level 119 Cholesterol Level 123 LDL Cholesterol, 45 Calculated HDL Cholesterol 54 Cholesterol/HDL Ratio 2.2 Test 12/10/18 08:41 Bedside Glucose 140 Medications Medication Current Medications IV Flush (NS 3 ml) 3 ml PER PROTOCOL IV ; Start 12/10/18 at 01:00 Ondansetron HCl (Zofran Inj) 4 mg Q6H PRN IV NAUSEA/VOMITING Last administered on 12/10/18at 02:40; Admin Dose 4 MG; Start 12/10/18 at 01:00 Hydromorphone HCl (Dilaudid) 2 mg Q4H PRN IV .SEVERE PAIN 7-10 Last administered on 12/10/18at 02:41; Admin Dose 2 MG; Start 12/10/18 at 01:00 Atorvastatin Calcium (Lipitor) 20 mg QHS PO ; Start 12/10/18 at 21:00 Calcium Acetate (Phoslo) 667 mg WITH MEALS PO Last administered on 12/10/18at 08:17; Admin Dose 667 MG; Start 12/10/18 at 08:00 Clonidine (Catapres) 0.1 mg Q8 PO Last administered on 12/10/18at 06:37; Admin Dose 0.1 MG; Start 12/10/18 at 06:00 Insulin Glargine (Lantus) 10 units QHS SC ; Start 12/10/18 at 21:00 Nifedipine (Procardia Xl) 90 mg DAILY PO Last administered on 12/10/18at 08:17; Admin Dose 90 MG; Start 12/10/18 at 09:00 Diagnostic Test (Pha) (Accu-Chek) 1 ea 02 XX Last administered on 12/10/18at 02:29; Admin Dose 1 EA; Start 12/10/18 at 02:00 Insulin Aspart (Novolog Insulin Pen) NOVOLOG *MILD* ALGORITHM Q6H SC Last administered on 12/10/18at 02:32; Admin Dose 1 UNIT; Start 12/10/18 at 01:00 Famotidine (Pepcid Iv) 20 mg Q24H IV Last administered on 12/10/18 02:31; Admin Dose 20 MG; Start 12/10/18 at 01:30 NATO SOTO NP Dec 10, 2018 11:16
[2018-12-10] MEDS ORDERED: GLUCOSE GEL 15 GRAM TUBE BUCCAL PRN (13:00)
[2018-12-10] MEDS ORDERED: DEXTROSE 50% 50 ML SYRINGE IV PRN (13:00)
[2018-12-10] MEDS ORDERED: GLUCOSE GEL 15 GRAM TUBE PO PRN ×2 (13:00)
[2018-12-10] MEDS ORDERED: GLUCAGON 1 MG INJ IM PRN (13:00)
[2018-12-10] MEDS: METOPROLOL 25 MG TAB PO SCH (13:15)
--- NOTE | 2018-12-10 14:52 | CONS ---
Assessment/Plan Assessment/Plan Hospital Course (Demo Recall) Assessment: Abdominal pain- unclear etiology Possible developing acute pancreatitis -Lipase normal ESRD on HD DM Hypertension CHF CAD Dyslipidemia Plan: Recheck Lipase/amylase in am Gastric emptying study- will await results Patient may benefit from endoscopic intervention for evaluation. PPI therapy Patient seen in collaboration with Dr. Ralph CC: AUGUSTUS RALPH MD ; Consultation Date/Type/Reason Admit Date/Time 09 December 2018 Date of Consultation: Dec 10, 2018 Type of Consult GI Reason for Consultation Abdominal pain Date/Time of Note DATE: 12/10/18 TIME: 14:48 Hx of Present Illness This a 53-year-old male with past medical history of end-stage renal disease on hemodialysis who was admitted for acute on chronic abdominal pain. This episode of acute pain started about a month ago described as intermittent sharp/stabbing in the epigastric area as well as right upper quadrant area not acutely worse or better with anything particular patient also has noted skin sensitivity with assessment. Had a CT abdomen pelvis without contrast showing slight increase enlargement of pancreas which can be seen in developing acute pancreatitis of note he has a normal lipase there is a decreased pericardial effusion and resolution of previously seen bilateral pleural effusions. He is currently on Dilaudid for pain management. Pt c/o LLQ pain- even with superficial assessment. Pain started about 1 month ago abruptly. He denies any signs of overt GI bleed i.e. melena, hematochezia, or hematemesis. Patient also denies change in bowel habits or unintentional weight loss. He previous had a colonoscopy about 3 years ago per family was negative patient is scheduled for repeat colonoscopy this Monday. Of note patient was told he had stomach cancer about 7 years ago no intervention was completed? Plan for gastric emptying study today Review of Systems: A 12 system, review was conducted and is negative except as noted in the HPI or here. Past Medical History Medical History: congestive heart failure, coronary artery disease, hypertension, renal disease Home Meds Active Scripts Nifedipine (Procardia Xl) 90 Mg Tab.er.24, 90 MG PO DAILY, #30 TAB Prov:SOTO,NATO V. [employer] 09/17/18 Losartan Potassium* (Cozaar*) 50 Mg Tablet, 50 MG PO BID, #60 TAB Prov:SOTO,[employer]. [employer] 09/17/18 Bumetanide* (Bumetanide*) 1 Mg Tablet, 2 MG PO DAILY, #30 TAB Prov:NATO SOTO [employer]. [employer] 09/17/18 Insulin Lispro (Humalog Kwikpen U-100) 100 Unit/1 Ml Insuln.pen, 5 UNIT SQ AC MEALS, #3 EA Prov:GREG CHILSD [employer] DESIGNER 03/22/18 Atorvastatin Calcium* (Atorvastatin Calcium*) 20 Mg Tablet, 20 MG PO QHS, #30 T AB Prov:GREG CHILDS [employer] DES[employer] 03/22/18 Clonidine Hcl* (Clonidine Hcl*) 0.1 Mg Tab, 0.1 MG PO Q8, #90 TAB Prov:GREG CHILDS [employer] DES[employer] 03/22/18 Reported Medications Calcium Acetate* (Calcium Acetate*) 667 Mg Capsule, 667 MG PO WITH MEALS, #30 CAP 09/12/18 Multivit/Ca Carb/B Cmplx/Fa* (Berta-Shamika*) 1 Tab Tab, 1 TAB PO DAILY, TAB 06/27/18 Insulin Glargine* (Lantus*) 100 Unit/Ml Soln, 10 UNIT SC QHS, #1 VIAL 06/27/18 Medications Current Medications IV Flush (NS 3 ml) 3 ml PER PROTOCOL IV ; Start 12/10/18 at 01:00 Ondansetron HCl (Zofran Inj) 4 mg Q6H PRN IV NAUSEA/VOMITING Last administered on 12/10/18at 02:40; Admin Dose 4 MG; Start 12/10/18 at 01:00 Hydromorphone HCl (Dilaudid) 2 mg Q4H PRN IV .SEVERE PAIN 7-10 Last administered on 12/10/18at 02:41; Admin Dose 2 MG; Start 12/10/18 at 01:00 Atorvastatin Calcium (Lipitor) 20 mg QHS PO ; Start 12/10/18 at 21:00 Calcium Acetate (Phoslo) 667 mg WITH MEALS PO Last administered on 12/10/18at 12:03; Admin Dose 667 MG; Start 12/10/18 at 08:00 Clonidine (Catapres) 0.1 mg Q8 PO Last administered on 12/10/18at 13:21; Admin Dose 0.1 MG; Start 12/10/18 at 06:00 Insulin Glargine (Lantus) 10 units QHS SC ; Start 12/10/18 at 21:00 Nifedipine (Procardia Xl) 90 mg DAILY PO Last administered on 12/10/18at 08:17; Admin Dose 90 MG; Start 12/10/18 at 09:00 Diagnostic Test (Pha) (Accu-Chek) 1 ea 02 XX Last administered on 12/10/18at 02:29; Admin Dose 1 EA; Start 12/10/18 at 02:00 Insulin Aspart (Novolog Insulin Pen) NOVOLOG *MILD* ALGORITHM Q6H SC Last administered on 12/10/18at 13:02; Admin Dose 1 UNIT; Start 12/10/18 at 01:00 Famotidine (Pepcid Iv) 20 mg Q24H IV Last administered on 12/10/18at 02:31; Admin Dose 20 MG; Start 12/10/18 at 01:30 Metoprolol Tartrate (Lopressor) 25 mg DAILY PO Last administered on 12/10/18at 13:15; Admin Dose 25 MG; Start 12/10/18 at 13:00 Miscellaneous Information 1 ea NOTE XX ; Start 12/10/18 at 13:00 Glucose (Glutose) 15 gm Q15M PRN PO DECREASED GLUCOSE; Start 12/10/18 at 13:00 Glucose (Glutose) 22.5 gm Q15M PRN PO DECREASED GLUCOSE; Start 12/10/18 at 13:00 Dextrose (D50w Syringe) 25 ml Q15M PRN IV DECREASED GLUCOSE; Start 12/10/18 at 13:00 Dextrose (D50w Syringe) 50 ml Q15M PRN IV DECREASED GLUCOSE; Start 12/10/18 at 13:00 Glucagon (Glucagen) 1 mg Q15M PRN IM DECREASED GLUCOSE; Start 12/10/18 at 13:00 Glucose (Glutose) 15 gm Q15M PRN BUCCAL DECREASED GLUCOSE; Start 12/10/18 at 13:00 Allergies: Coded Allergies: No Known Allergy (Unverified , 09/12/18) Past Surgical History Past Surgical Hx: no surgical history Social History Alcohol Use: none Smoking Status: Former smoker Drug Use: none Exam/Review of Systems Exam Vitals Vital Signs Date Temp Pulse Resp B/P (MAP) Pulse Ox O2 O2 Flow FiO2 Time Delivery Rate 12/10/18 85 12:00 12/10/18 98.3 18 179/91 99 11:54 (120) 12/10/18 Room Air 02:30 Exam PHYSICAL EXAMINATION: GENERAL: Alert & oriented x 3, in no acute distress SKIN: No lesions HEAD: Normocephalic, atraumatic, no tenderness. EYES: Pupils equal reactive to light, no discharge. EARS/NOSE AND THROAT: Ears normal, nose normal. NECK: Supple, no masses CHEST: Inspection within normal limits. CARDIOVASCULAR: Heart: Regular rate and rhythm RESPIRATORY: Lungs clear to auscultation and percussion, no wheezing, no rubs GASTROINTESTINAL AND LIVER: Abdomen: Soft, LLQ abd pain, non-distended, no hernias, no masses, no organomegaly, no ascites, no guarding, no rebound tenderness, normoactive bowel sounds. Rectal: Deferred. GENITOURINARY: Male genitalia within normal limits. EXTREMITIES: No cyanosis, clubbing or edema. Results Result Diagram: 12/09/18 2100 12/10/18 0457 Results 24hrs Laboratory Tests Test 12/09/18 21:00 12/10/18 02:28 12/10/18 04:57 12/10/18 04:59 White Blood Count 7.2 # Red Blood Count 4.20 #L Hemoglobin 12.6 #L Hematocrit 38.3 #L Mean Corpuscular Volume 91.2 Mean Corpuscular 30.0 Hemoglobin Mean Corpuscular 32.9 Hemoglobin Concent Red Cell Distribution 13.1 Width Platelet Count 187 Mean Platelet Volume 11.5 H Immature Granulocytes % 0.300 Neutrophils % 59.1 Lymphocytes % 22.1 Monocytes % 11.8 H Eosinophils % 5.7 Basophils % 1.0 Nucleated Red Blood 0.0 Cells % Immature Granulocytes # 0.020 Neutrophils # 4.3 Lymphocytes # 1.6 Monocytes # 0.9 Eosinophils # 0.4 Basophils # 0.1 Nucleated Red Blood 0.0 Cells # Sodium Level 136 137 Potassium Level 5.9 H 5.6 H Chloride Level 100 104 Carbon Dioxide Level 27 25 Anion Gap 9 8 Blood Urea Nitrogen 53 H 55 H Creatinine 7.26 H 7.63 H Est Glomerular Filtrat 8 L 7 L Rate mL/min Glucose Level 349 H 170 # Calcium Level 8.7 8.4 Total Bilirubin 0.2 Direct Bilirubin 0.00 Indirect Bilirubin 0.2 Aspartate Amino 61 H Transf (AST/SGOT) Alanine 44 Aminotransferase (ALT/SG PT) Alkaline Phosphatase 86 Troponin I < 0.012 Total Protein 7.0 Albumin 4.0 Globulin 3.00 Albumin/Globulin Ratio 1.33 Lipase 242 Bedside Glucose 180 Hepatitis B Surface NEGATIVE Antigen Triglycerides Level 119 Cholesterol Level 123 LDL Cholesterol, 45 Calculated HDL Cholesterol 54 Cholesterol/HDL Ratio 2.2 Test 12/10/18 08:41 12/10/18 12:02 Bedside Glucose 140 157 Medications Medication Current Medications IV Flush (NS 3 ml) 3 ml PER PROTOCOL IV ; Start 12/10/18 at 01:00 Ondansetron HCl (Zofran Inj) 4 mg Q6H PRN IV NAUSEA/VOMITING Last administered on 12/10/18 02:40; Admin Dose 4 MG; Start 12/10/18 at 01:00 Hydromorphone HCl (Dilaudid) 2 mg Q4H PRN IV .SEVERE PAIN 7-10 Last administered on 12/10/18at 02:41; Admin Dose 2 MG; Start 12/10/18 at 01:00 Atorvastatin Calcium (Lipitor) 20 mg QHS PO ; Start 12/10/18 at 21:00 Calcium Acetate (Phoslo) 667 mg WITH MEALS PO Last administered on 12/10/18at 1 2:03; Admin Dose 667 MG; Start 12/10/18 at 08:00 Clonidine (Catapres) 0.1 mg Q8 PO Last administered on 12/10/18at 13:21; Admin Dose 0.1 MG; Start 12/10/18 at 06:00 Insulin Glargine (Lantus) 10 units QHS SC ; Start 12/10/18 at 21:00 Nifedipine (Procardia Xl) 90 mg DAILY PO Last administered on 12/10/18at 08:17; Admin Dose 90 MG; Start 12/10/18 at 09:00 Diagnostic Test (Pha) (Accu-Chek) 1 ea 02 XX Last administered on 12/10/18at 02:29; Admin Dose 1 EA; Start 12/10/18 at 02:00 Insulin Aspart (Novolog Insulin Pen) NOVOLOG *MILD* ALGORITHM Q6H SC Last administered on 12/10/18at 13:02; Admin Dose 1 UNIT; Start 12/10/18 at 01:00 Famotidine (Pepcid Iv) 20 mg Q24H IV Last administered on 6/3/19at 02:31; Admin Dose 20 MG; Start 12/10/18 at 01:30 Metoprolol Tartrate (Lopressor) 25 mg DAILY PO Last administered on 12/10/18at 13:15; Admin Dose 25 MG; Start 12/10/18 at 13:00 Miscellaneous Information 1 ea NOTE XX ; Start 12/10/18 at 13:00 Glucose (Glutose) 15 gm Q15M PRN PO DECREASED GLUCOSE; Start 12/10/18 at 13:00 Glucose (Glutose) 22.5 gm Q15M PRN PO DECREASED GLUCOSE; Start 12/10/18 at 13:00 Dextrose (D50w Syringe) 25 ml Q15M PRN IV DECREASED GLUCOSE; Start 12/10/18 at 13:00 Dextrose (D50w Syringe) 50 ml Q15M PRN IV DECREASED GLUCOSE; Start 12/10/18 at 13:00 Glucagon (Glucagen) 1 mg Q15M PRN IM DECREASED GLUCOSE; Start 12/10/18 at 13:00 Glucose (Glutose) 15 gm Q15M PRN BUCCAL DECREASED GLUCOSE; Start 12/10/18 at 13:00 ALBERT SRINIVASAN Dec 10, 2018 14:52
[2018-12-10] MEDS: ATORVASTATIN 20 MG TAB PO SCH (21:22)
[2018-12-10] MEDS: INSULIN GLARGINE [LANTus] (100 UNITS/ML) SYG SC SCH (21:30)
[2018-12-11] VITALS (25 sets, daily range): BP systolic 99–222; BP diastolic 54–120; PULSE 80–105; RESP 16–20
[2018-12-11] MEDS: INSULIN ASPART [NOVOLOG] 3 ML PEN SC SCH ×4 (01:00→17:14)
[2018-12-11] MEDS: ACCU-CHEK XX SCH (01:50)
[2018-12-11] MEDS: hydrALAzine 20 MG INJ IV PRN ×2 (04:38→10:42)
[2018-12-11] MEDS: CALCIUM ACETATE 667 MG CAP PO SCH ×3 (08:00→17:16)
[2018-12-11] MEDS: NIFEdipine (XL) 90 MG TAB PO SCH (10:38)
[2018-12-11] MEDS: METOPROLOL 25 MG TAB PO SCH (10:38)
--- NOTE | 2018-12-11 11:45 | PN ---
Date/Time of Note Date/Time of Note DATE: 12/11/18 TIME: 11:41 Assessment/Plan VTE Prophylaxis Risk score (from Ns)>0 risk: 2 SCD applied (from Ns): Yes Pharmacological prophylaxis: NA/contraindicated Pharm contraindication: low risk/ambulating Lines/Catheters IV [facility] Saline Lock Urinary Cath still in place: No Assessment/Plan Hospital Course SUBJECTIVE: Patient continued to have abdominal pain. His blood pressure is also high today. OBJECTIVE: Vital signs-see below PHYSICAL EXAM: Constitutional: Adequately built,not in acute distress. HEENT: Head atraumatic and normocephalic. Eyes: Extraocular muscles intact. Anicteric sclerae. Pupils equal bilaterally, reactive to light. NECK: Supple without lymph node. CHEST: Clear and good breath sounds equally. No wheezing. No rhonchi. HEART: S1, S2. Regular rate and rhythm. ABDOMEN: +Tenderness periumblical area. no rebound tenderness. Bowel sounds were present. EXTREMITIES: No cyanosis, clubbing or edema. NEUROLOGIC: Alert and oriented x3. No focal deficit. No sensory deficit. PSYCHOSOCIAL: No signs of depression. INTEGUMENTARY: No open wounds. ASSESSMENT AND PLAN:53 yo M w/ESRD/HD TTS, DM.htn,dlp, here w/1 mionth duration of abdominal pain Diabetic gastroparesis -Reviewed NM gastric emptying scan. -We will start patient on erythromycin base/Reglan/Benadryl combination. -PRN Zofran Possible early pancreatitis -Lipase normal. Diet per GI recommendations Abdominal pain likely secondary to above. -GI following and EGD evaluation if needed with this admission per description of GI team -On empiric PPI ESRD/HD TTS -Nephrology managing this Hyperkalemia -Per nephro team IDDM, poorly controlled -Basal/Bolus insulin Essential hypertension -poorly managed -Patient with blood pressure in the 200s. Will start labetalol. -cont procardia/clonidine -hold ARB 2/2 hyperkalemia and add low dose BB -UF Dyslipidemia -cont statin DM Neuropathy -start Gabapentin DVT prophylaxis: SCDs PUD prophylaxis: Pepcid Disposition: Current management. If blood pressure remained stable over the few hours, he can be downgraded to medical surgical floor. Diet per GI team. If patient's abdominal pain improves, no further plan for GI intervention, likely DC in a.m. with outpatient follow-up. Patient is seen in collaboration with Dr. Teague Result Diagram: 12/11/18 0547 12/11/18 0547 Results 24hrs Laboratory Tests Test 12/10/18 12:02 12/10/18 18:11 12/10/18 21:21 12/11/18 01:48 Bedside Glucose 157 177 172 116 Test 12/11/18 05:41 12/11/18 05:47 12/11/18 08:09 Bedside Glucose 72 88 White Blood Count 11.1 #H Red Blood Count 4.50 L Hemoglobin 13.3 L Hematocrit 40.9 L Mean Corpuscular Volume 90.9 Mean Corpuscular 29.6 Hemoglobin Mean Corpuscular 32.5 Hemoglobin Concent Red Cell Distribution 12.9 Width Platelet Count 210 Mean Platelet Volume 11.9 H Immature Granulocytes % 0.300 Neutrophils % 62.7 Lymphocytes % 24.1 Monocytes % 8.3 Eosinophils % 4.0 Basophils % 0.6 Nucleated Red Blood 0.0 Cells % Immature Granulocytes # 0.030 Neutrophils # 7.0 Lymphocytes # 2.7 Monocytes # 0.9 Eosinophils # 0.5 Basophils # 0.1 Nucleated Red Blood 0.0 Cells # Sodium Level 140 Potassium Level 5.2 H Chloride Level 105 Carbon Dioxide Level 23 Anion Gap 12 Blood Urea Nitrogen 62 H Creatinine 9.32 H Est Glomerular Filtrat 6 L Rate mL/min Glucose Level 76 # Hemoglobin A1c 8.4 H Calcium Level 9.4 Phosphorus Level 4.0 Magnesium Level 2.6 H Total Bilirubin 0.4 Direct Bilirubin 0.00 Indirect Bilirubin 0.4 Aspartate Amino 40 Transf (AST/SGOT) Alanine 44 Aminotransferase (ALT/SG PT) Alkaline Phosphatase 98 Total Protein 7.0 Albumin 3.9 Globulin 3.10 Albumin/Globulin Ratio 1.25 Amylase Level 99 Lipase 96 Exam/Review of Systems Exam Vitals Vital Signs Date Temp Pulse Resp B/P (MAP) Pulse Ox O2 O2 Flow FiO2 Time Delivery Rate 12/11/18 87 09:07 12/11/18 16 204/113 Room Air 09:07 (143) 12/11/18 98.0 99 07:42 Intake and Output 12/10/18 12/10/18 12/11/18 1515:00 23:00 07:00 IntakeIntake Total 50 ml 120 ml 350 ml OutputOutput Total 200 ml BalanceBalance 50 ml 120 ml 150 ml Results Results 24hrs Laboratory Tests Test 12/10/18 12:02 12/10/18 18:11 12/10/18 21:21 12/11/18 01:48 Bedside Glucose 157 177 172 116 Test 12/11/18 05:41 12/11/18 05:47 12/11/18 08:09 Bedside Glucose 72 88 White Blood Count 11.1 #H Red Blood Count 4.50 L Hemoglobin 13.3 L Hematocrit 40.9 L Mean Corpuscular Volume 90.9 Mean Corpuscular 29.6 Hemoglobin Mean Corpuscular 32.5 Hemoglobin Concent Red Cell Distribution 12.9 Width Platelet Count 210 Mean Platelet Volume 11.9 H Immature Granulocytes % 0.300 Neutrophils % 62.7 Lymphocytes % 24.1 Monocytes % 8.3 Eosinophils % 4.0 Basophils % 0.6 Nucleated Red Blood 0.0 Cells % Immature Granulocytes # 0.030 Neutrophils # 7.0 Lymphocytes # 2.7 Monocytes # 0.9 Eosinophils # 0.5 Basophils # 0.1 Nucleated Red Blood 0.0 Cells # Sodium Level 140 Potassium Level 5.2 H Chloride Level 105 Carbon Dioxide Level 23 Anion Gap 12 Blood Urea Nitrogen 62 H Creatinine 9.32 H Est Glomerular Filtrat 6 L Rate mL/min Glucose Level 76 # Hemoglobin A1c 8.4 H Calcium Level 9.4 Phosphorus Level 4.0 Magnesium Level 2.6 H Total Bilirubin 0.4 Direct Bilirubin 0.00 Indirect Bilirubin 0.4 Aspartate Amino 40 Transf (AST/SGOT) Alanine 44 Aminotransferase (ALT/SG PT) Alkaline Phosphatase 98 Total Protein 7.0 Albumin 3.9 Globulin 3.10 Albumin/Globulin Ratio 1.25 Amylase Level 99 Lipase 96 Medications Medication Current Medications IV Flush (NS 3 ml) 3 ml PER PROTOCOL IV ; Start 12/10/18 at 01:00 Ondansetron HCl (Zofran Inj) 4 mg Q6H PRN IV NAUSEA/VOMITING Last administered on 12/10/18at 02:40; Admin Dose 4 MG; Start 12/10/18 at 01:00 Hydromorphone HCl (Dilaudid) 2 mg Q4H PRN IV .SEVERE PAIN 7-10 Last administered on 12/10/18at 17:18; Admin Dose 2 MG; Start 12/10/18 at 01:00 Atorvastatin Calcium (Lipitor) 20 mg QHS PO Last administered on 12/10/18 21:22; Admin Dose 20 MG; Start 12/10/18 at 21:00 Calcium Acetate (Phoslo) 667 mg WITH MEALS PO Last administered on 12/10/18 17:17; Admin Dose 667 MG; Start 12/10/18 at 08:00 Clonidine (Catapres) 0.1 mg Q8 PO Last administered on 12/11/18 05:49; Admin Dose 0.1 MG; Start 12/10/18 at 06:00 Insulin Glargine (Lantus) 10 units QHS SC Last administered on 12/10/18 21:30; Admin Dose 10 UNITS; Start 12/10/18 at 21:00 Nifedipine (Procardia Xl) 90 mg DAILY PO Last administered on 12/11/18 10:38; Admin Dose 90 MG; Start 12/10/18 at 09:00 Diagnostic Test (Pha) (Accu-Chek) 1 ea 02 XX Last administered on 12/10/18at 02:29; Admin Dose 1 EA; Start 12/10/18 at 02:00 Insulin Aspart (Novolog Insulin Pen) NOVOLOG *MILD* ALGORITHM Q6H SC Last administered on 12/10/18 18:24; Admin Dose 1 UNIT; Start 12/10/18 at 01:00 Miscellaneous Information 1 ea NOTE XX ; Start 12/10/18 at 13:00 Glucose (Glutose) 15 gm Q15M PRN PO DECREASED GLUCOSE; Start 12/10/18 at 13:00 Glucose (Glutose) 22.5 gm Q15M PRN PO DECREASED GLUCOSE; Start 12/10/18 at 13:00 Dextrose (D50w Syringe) 25 ml Q15M PRN IV DECREASED GLUCOSE; Start 12/10/18 at 13:00 Dextrose (D50w Syringe) 50 ml Q15M PRN IV DECREASED GLUCOSE; Start 12/10/18 at 13:00 Glucagon (Glucagen) 1 mg Q15M PRN IM DECREASED GLUCOSE; Start 12/10/18 at 13:00 Glucose (Glutose) 15 gm Q15M PRN BUCCAL DECREASED GLUCOSE; Start 12/10/18 at 13:00 Hydralazine HCl (Apresoline) 10 mg Q4H PRN IV ELEVATED BLOOD PRESSURE Last administered on 12/11/18at 10:42; Admin Dose 10 MG; Start 12/11/18 at 04:30 Labetalol HCl (Normodyne) 400 mg BID PO ; Start 12/11/18 at 11:30 [employer] S[employer] V. [employer] Dec 11, 2018 11:45
[2018-12-11] MEDS: LABETALOL 200 MG TAB PO SCH ×2 (12:21→20:58)
[2018-12-11] MEDS: GABAPENTIN 100 MG CAP PO SCH ×2 (12:21→20:58)
[2018-12-11] MEDS: DIPHENHYDRAMINE 25 MG CAP PO SCH (12:21)
[2018-12-11] MEDS: ERYTHROMYCIN BASE (DR) 250 MG CAP PO SCH ×2 (12:24→22:14)
[2018-12-11] MEDS: METOCLOPRAMIDE 5 MG TAB PO SCH ×2 (12:24→17:16)
--- NOTE | 2018-12-11 13:58 | PN ---
Date/Time of Note Date/Time of Note DATE: 12/11/18 TIME: 13:55 Assessment/Plan VTE Prophylaxis Risk score (from Nsg)>0 risk: 1 SCD applied (from Nsg): Yes Pharmacological prophylaxis: other (scds) Lines/Catheters IV Catheter Type (from Nrsg): Saline Lock Urinary Cath still in place: No Assessment/Plan Hospital Course Assessment: Abdominal pain- unclear etiology -Pain even with superficial touch patient has been started on Neurontin -Gastric emptying study shows delayed emptying rate -Patient started erythromycin/Reglan Possible developing acute pancreatitis -Repeat lapse and amylase WNL ESRD on HD- T, TH, Sat DM Hypertension CHF CAD Dyslipidemia Plan: CT abdomen pelvis with IV p.o. contrast Further recognitions based on clinical course Patient seen in collaboration with Dr. Ralph Subjective: Course reviewed with nursing staff Patient interviewed and examined All labs, imaging and other results reviewed The patient continues to c/o LLQ pain- both with superficial touch and deep palpation. Patient is unclear if pain just is located to the skin or if he feels deeper pain as well. So far work-up is unclear for lower left lower quadrant abdominal pain etiology discussed plan for CT abdomen pelvis with contrast to further evaluate pending results patient may benefit from endoscopic evaluation. GENERAL: Alert & oriented x 3, in no acute distress SKIN: No lesions HEAD: Normocephalic, atraumatic, no tenderness. EYES: Pupils equal reactive to light, no discharge. EARS/NOSE AND THROAT: Ears normal, nose normal. NECK: Supple, no masses CHEST: Inspection within normal limits. CARDIOVASCULAR: Heart: Regular rate and rhythm RESPIRATORY: Lungs clear to auscultation and percussion, no wheezing, no rubs GASTROINTESTINAL AND LIVER: Abdomen: Soft, lower abd pain, non-distended, no hernias, no masses, no organomegaly, no ascites, no guarding, no rebound tenderness, normoactive bowel sounds. Rectal: Deferred. GENITOURINARY: Male genitalia within normal limits. EXTREMITIES: No cyanosis, clubbing or edema. Result Diagram: 12/11/18 0547 12/11/18 0547 Results 24hrs Laboratory Tests Test 12/10/18 18:11 12/10/18 21:21 12/11/18 01:48 12/11/18 05:41 Bedside Glucose 177 172 116 72 Test 12/11/18 05:47 12/11/18 08:09 12/11/18 12:20 White Blood Count 11.1 #H Red Blood Count 4.50 L Hemoglobin 13.3 L Hematocrit 40.9 L Mean Corpuscular Volume 90.9 Mean Corpuscular 29.6 Hemoglobin Mean Corpuscular 32.5 Hemoglobin Concent Red Cell Distribution 12.9 Width Platelet Count 210 Mean Platelet Volume 11.9 H Immature Granulocytes % 0.300 Neutrophils % 62.7 Lymphocytes % 24.1 Monocytes % 8.3 Eosinophils % 4.0 Basophils % 0.6 Nucleated Red Blood 0.0 Cells % Immature Granulocytes # 0.030 Neutrophils # 7.0 Lymphocytes # 2.7 Monocytes # 0.9 Eosinophils # 0.5 Basophils # 0.1 Nucleated Red Blood 0.0 Cells # Sodium Level 140 Potassium Level 5.2 H Chloride Level 105 Carbon Dioxide Level 23 Anion Gap 12 Blood Urea Nitrogen 62 H Creatinine 9.32 H Est Glomerular Filtrat 6 L Rate mL/min Glucose Level 76 # Hemoglobin A1c 8.4 H Calcium Level 9.4 Phosphorus Level 4.0 Magnesium Level 2.6 H Total Bilirubin 0.4 Direct Bilirubin 0.00 Indirect Bilirubin 0.4 Aspartate Amino 40 Transf (AST/SGOT) Alanine 44 Aminotransferase (ALT/SG PT) Alkaline Phosphatase 98 Total Protein 7.0 Albumin 3.9 Globulin 3.10 Albumin/Globulin Ratio 1.25 Amylase Level 99 Lipase 96 Bedside Glucose 88 70 Exam/Review of Systems Exam Vitals Vital Signs Date Temp Pulse Resp B/P (MAP) Pulse Ox O2 O2 Flow FiO2 Time Delivery Rate 12/11/18 99 12:24 12/11/18 98.4 18 193/99 98 11:59 (130) 12/11/18 Room Air 09:07 Intake and Output 12/10/18 12/10/18 12/11/18 1515:00 23:00 07:00 IntakeIntake Total 50 ml 120 ml 350 ml OutputOutput Total 200 ml BalanceBalance 50 ml 120 ml 150 ml Results Results 24hrs Laboratory Tests Test 12/10/18 18:11 12/10/18 21:21 12/11/18 01:48 12/11/18 05:41 Bedside Glucose 177 172 116 72 Test 12/11/18 05:47 12/11/18 08:09 12/11/18 12:20 White Blood Count 11.1 #H Red Blood Count 4.50 L Hemoglobin 13.3 L Hematocrit 40.9 L Mean Corpuscular Volume 90.9 Mean Corpuscular 29.6 Hemoglobin Mean Corpuscular 32.5 Hemoglobin Concent Red Cell Distribution 12.9 Width Platelet Count 210 Mean Platelet Volume 11.9 H Immature Granulocytes % 0.300 Neutrophils % 62.7 Lymphocytes % 24.1 Monocytes % 8.3 Eosinophils % 4.0 Basophils % 0.6 Nucleated Red Blood 0.0 Cells % Immature Granulocytes # 0.030 Neutrophils # 7.0 Lymphocytes # 2.7 Monocytes # 0.9 Eosinophils # 0.5 Basophils # 0.1 Nucleated Red Blood 0.0 Cells # Sodium Level 140 Potassium Level 5.2 H Chloride Level 105 Carbon Dioxide Level 23 Anion Gap 12 Blood Urea Nitrogen 62 H Creatinine 9.32 H Est Glomerular Filtrat 6 L Rate mL/min Glucose Level 76 # Hemoglobin A1c 8.4 H Calcium Level 9.4 Phosphorus Level 4.0 Magnesium Level 2.6 H Total Bilirubin 0.4 Direct Bilirubin 0.00 Indirect Bilirubin 0.4 Aspartate Amino 40 Transf (AST/SGOT) Alanine 44 Aminotransferase (ALT/SG PT) Alkaline Phosphatase 98 Total Protein 7.0 Albumin 3.9 Globulin 3.10 Albumin/Globulin Ratio 1.25 Amylase Level 99 Lipase 96 Bedside Glucose 88 70 Medications Medication Current Medications IV Flush (NS 3 ml) 3 ml PER PROTOCOL IV ; Start 12/10/18 at 01:00 Ondansetron HCl (Zofran Inj) 4 mg Q6H PRN IV NAUSEA/VOMITING Last administered on 12/10/18 02:40; Admin Dose 4 MG; Start 12/10/18 at 01:00 Hydromorphone HCl (Dilaudid) 2 mg Q4H PRN IV .SEVERE PAIN 7-10 Last administered on 12/10/18 17:18; Admin Dose 2 MG; Start 12/10/18 at 01:00 Atorvastatin Calcium (Lipitor) 20 mg QHS PO Last administered on 12/10/18 21:22; Admin Dose 20 MG; Start 12/10/18 at 21:00 Calcium Acetate (Phoslo) 667 mg WITH MEALS PO Last administered on 12/10/18 17:17; Admin Dose 667 MG; Start 12/10/18 at 08:00 Clonidine (Catapres) 0.1 mg Q8 PO Last administered on 12/11/18 12:24; Admin Dose 0.1 MG; Start 12/10/18 at 06:00 Insulin Glargine (Lantus) 10 units QHS SC Last administered on 12/10/18 21:30; Admin Dose 10 UNITS; Start 12/10/18 at 21:00 Nifedipine (Procardia Xl) 90 mg DAILY PO Last administered on 12/11/18 10:38; Admin Dose 90 MG; Start 12/10/18 at 09:00 Diagnostic Test (Pha) (Accu-Chek) 1 ea 02 XX Last administered on 12/10/18 02:29; Admin Dose 1 EA; Start 12/10/18 at 02:00 Insulin Aspart (Novolog Insulin Pen) NOVOLOG *MILD* ALGORITHM Q6H SC Last administered on 12/10/18 18:24; Admin Dose 1 UNIT; Start 12/10/18 at 01:00 Miscellaneous Information 1 ea NOTE XX ; Start 12/10/18 at 13:00 Glucose (Glutose) 15 gm Q15M PRN PO DECREASED GLUCOSE; Start 12/10/18 at 13:00 Glucose (Glutose) 22.5 gm Q15M PRN PO DECREASED GLUCOSE; Start 12/10/18 at 13:00 Dextrose (D50w Syringe) 25 ml Q15M PRN IV DECREASED GLUCOSE; Start 12/10/18 at 13:00 Dextrose (D50w Syringe) 50 ml Q15M PRN IV DECREASED GLUCOSE; Start 12/10/18 at 13:00 Glucagon (Glucagen) 1 mg Q15M PRN IM DECREASED GLUCOSE; Start 12/10/18 at 13:00 Glucose (Glutose) 15 gm Q15M PRN BUCCAL DECREASED GLUCOSE; Start 12/10/18 at 13:00 Hydralazine HCl (Apresoline) 10 mg Q4H PRN IV ELEVATED BLOOD PRESSURE Last administered on 12/11/18 10:42; Admin Dose 10 MG; Start 12/11/18 at 04:30 Labetalol HCl (Normodyne) 400 mg BID PO Last administered on 12/11/18 12:21; Admin Dose 400 MG; Start 12/11/18 at 11:30 Metoclopramide HCl (Reglan) 5 mg WITH MEALS PO Last administered on 12/11/18 12:24; Admin Dose 5 MG; Start 12/11/18 at 12:30 Erythromycin (Erythromycin) 250 mg Q8 PO Last administered on 12/11/18at 12:24; Admin Dose 250 MG; Start 12/11/18 at 13:00 Diphenhydramine HCl (Benadryl) 25 mg Q12H PO Last administered on 12/11/18at 12:21; Admin Dose 25 MG; Start 12/11/18 at 12:00; Stop 12/12/18 at 11:59 Gabapentin (Neurontin) 100 mg TID PO Last administered on 12/11/18at 12:21; Admin Dose 100 MG; Start 12/11/18 at 13:00 ALBERT SRINIVASAN Dec 11, 2018 13:58
[2018-12-11] MEDS ORDERED: BARIUM SULF 2% 450 ML BTL (BERRY SMOOTHIE) PO ONE (16:00)
[2018-12-11] MEDS: ATORVASTATIN 20 MG TAB PO SCH (20:58)
[2018-12-11] MEDS: INSULIN GLARGINE [LANTus] (100 UNITS/ML) SYG SC SCH (21:12)
[2018-12-12] VITALS (21 sets, daily range): BP systolic 111–194; BP diastolic 61–95; PULSE 72–85; RESP 16–20
[2018-12-12] MEDS: HYDROmorphONE 0.5 MG/0.5 ML SYG IV PRN ×3 (00:13→20:34)
[2018-12-12] MEDS ORDERED: INSULIN ASPART [NOVOLOG] 3 ML PEN SC SCH (01:00)
[2018-12-12] MEDS: Insulin NOVOLOG SS MILD Algorithm (NPO/TPN/ENTERAL FEEDS) SC SCH ×6 (01:00→20:28)
[2018-12-12] MEDS: DIPHENHYDRAMINE 25 MG CAP PO SCH (01:13)
[2018-12-12] MEDS: ACCU-CHEK XX SCH (01:24)
[2018-12-12] MEDS: ERYTHROMYCIN BASE (DR) 250 MG CAP PO SCH ×4 (05:57→21:35)
[2018-12-12] MEDS: DEXTROSE 50% 50 ML SYRINGE IV PRN ×2 (05:57→13:32)
[2018-12-12] MEDS: PANTOPRAZOLE (EC) 40 MG TAB PO SCH (05:57)
[2018-12-12] MEDS: NIFEdipine (XL) 90 MG TAB PO SCH (09:00)
[2018-12-12] MEDS ORDERED: IOHEXOL 300MG/ML 150 ML BTL ONE (09:18)
[2018-12-12] MEDS ORDERED: SOD CHLORIDE 0.9% 100 ML ONE (09:18)
[2018-12-12] MEDS: CALCIUM ACETATE 667 MG CAP PO SCH ×3 (10:25→18:00)
[2018-12-12] MEDS: METOCLOPRAMIDE 5 MG TAB PO SCH ×3 (10:26→20:27)
[2018-12-12] MEDS: GABAPENTIN 100 MG CAP PO SCH ×3 (10:26→20:27)
[2018-12-12] MEDS: LABETALOL 200 MG TAB PO SCH ×2 (10:26→20:27)
--- NOTE | 2018-12-12 11:47 | PN ---
Date/Time of Note Date/Time of Note DATE: 12/12/18 TIME: 11:35 Assessment/Plan VTE Prophylaxis Risk score (from Nsg)>0 risk: 1 SCD applied (from Nsg): No SCD contraindicated: other (scds) Pharmacological prophylaxis: other (scds) Lines/Catheters [facility] Saline Lock Urinary Cath still in place: No Assessment/Plan Hospital Course Assessment: Abdominal pain- unclear etiology -Pain even with superficial touch patient has been started on Neurontin -Gastric emptying study shows delayed emptying rate -Patient started erythromycin/Reglan -Repeat CT abd/pelvis with contrast 12/12/18- No evidence of urolithiasis, obstructive uropathy, diverticulitis or appendicitis. No mass or adenopathy. No evidence of bowel obstruction or mass. Small pericardial effusion. Possible developing acute pancreatitis -Repeat lapse and amylase WNL ESRD on HD- T, , Sat DM Hypertension CHF CAD Dyslipidemia Plan: Ct reviewed- pt c/o of some upper abd pain as well- as LLQ pain- he has a planned out-pt colonoscopy Monday- Concerns for upper GI etiology- will plan for EGD today. Patient seen in collaboration with Dr. Ralph Subjective: Course reviewed with nursing staff Patient interviewed and examined All labs, imaging and other results reviewed Pt stats pain has not changed, c/o epigastric pain as well as LLQ pain. Pt has never had an EGD previously- will schedule for today. GENERAL: Alert & oriented x 3, in no acute distress SKIN: No lesions HEAD: Normocephalic, atraumatic, no tenderness. EYES: Pupils equal reactive to light, no discharge. EARS/NOSE AND THROAT: Ears normal, nose normal. NECK: Supple, no masses CHEST: Inspection within normal limits. CARDIOVASCULAR: Heart: Regular rate and rhythm RESPIRATORY: Lungs clear to auscultation and percussion, no wheezing, no rubs GASTROINTESTINAL AND LIVER: Abdomen: Soft, epigastric/lower abd pain, non- distended, no hernias, no masses, no organomegaly, no ascites, normoactive bowel sounds. Rectal: Deferred. GENITOURINARY: Male genitalia within normal limits. EXTREMITIES: No cyanosis, clubbing or edema. Result Diagram: 12/11/18 0547 12/11/18 0547 Results 24hrs Laboratory Tests Test 12/11/18 12:20 12/11/18 17:09 12/11/18 20:52 12/12/18 01:16 Bedside Glucose 70 78 82 72 Test 12/12/18 05:48 12/12/18 06:22 12/12/18 06:44 12/12/18 08:36 Bedside Glucose 53 L 101 90 74 Exam/Review of Systems Exam Vitals Vital Signs Date Temp Pulse Resp B/P (MAP) Pulse Ox O2 O2 Flow FiO2 Time Delivery Rate 12/12/18 98.2 81 20 145/79 97 07:43 (101) 12/11/18 Room Air 09:07 Intake and Output 12/11/18 12/11/18 12/12/18 1515:00 23:00 07:00 IntakeIntake Total 0 ml OutputOutput Total 2400 ml BalanceBalance -2400 ml 0 ml Results Results 24hrs Laboratory Tests Test 12/11/18 12:20 12/11/18 17:09 12/11/18 20:52 12/12/18 01:16 Bedside Glucose 70 78 82 72 Test 12/12/18 05:48 12/12/18 06:22 12/12/18 06:44 12/12/18 08:36 Bedside Glucose 53 L 101 90 74 Medications Medication Current Medications IV Flush (NS 3 ml) 3 ml PER PROTOCOL IV ; Start 12/10/18 at 01:00 Ondansetron HCl (Zofran Inj) 4 mg Q6H PRN IV NAUSEA/VOMITING Last administered on 12/10/18 02:40; Admin Dose 4 MG; Start 12/10/18 at 01:00 Hydromorphone HCl (Dilaudid) 2 mg Q4H PRN IV .SEVERE PAIN 7-10 Last administered on 12/12/18 00:13; Admin Dose 2 MG; Start 12/10/18 at 01:00 Atorvastatin Calcium (Lipitor) 20 mg QHS PO Last administered on 12/11/18at 20:58; Admin Dose 20 MG; Start 12/10/18 at 21:00 Calcium Acetate (Phoslo) 667 mg WITH MEALS PO Last administered on 12/12/18 10:25; Admin Dose 667 MG; Start 12/10/18 at 08:00 Clonidine (Catapres) 0.1 mg Q8 PO Last administered on 12/12/18 05:57; Admin Dose 0.1 MG; Start 12/10/18 at 06:00 Insulin Glargine (Lantus) 10 units QHS SC Last administered on 12/11/18 21:12; Admin Dose 10 UNITS; Start 12/10/18 at 21:00 Nifedipine (Procardia Xl) 90 mg DAILY PO Last administered on 12/11/18 10:38; Admin Dose 90 MG; Start 12/10/18 at 09:00 Diagnostic Test (Pha) (Accu-Chek) 1 ea 02 XX Last administered on 12/10/18 02:29; Admin Dose 1 EA; Start 12/10/18 at 02:00 Miscellaneous Information 1 ea NOTE XX ; Start 12/10/18 at 13:00 Glucose (Glutose) 15 gm Q15M PRN PO DECREASED GLUCOSE; Start 12/10/18 at 13:00 Glucose (Glutose) 22.5 gm Q15M PRN PO DECREASED GLUCOSE; Start 12/10/18 at 13:00 Dextrose (D50w Syringe) 25 ml Q15M PRN IV DECREASED GLUCOSE Last administered on 12/12/18 05:57; Admin Dose 25 ML; Start 12/10/18 at 13:00 Dextrose (D50w Syringe) 50 ml Q15M PRN IV DECREASED GLUCOSE; Start 12/10/18 at 13:00 Glucagon (Glucagen) 1 mg Q15M PRN IM DECREASED GLUCOSE; Start 12/10/18 at 13:00 Glucose (Glutose) 15 gm Q15M PRN BUCCAL DECREASED GLUCOSE; Start 12/10/18 at 13:00 Hydralazine HCl (Apresoline) 10 mg Q4H PRN IV ELEVATED BLOOD PRESSURE Last administered on 12/11/18 10:42; Admin Dose 10 MG; Start 12/11/18 at 04:30 Labetalol HCl (Normodyne) 400 mg BID PO Last administered on 12/12/18 10:26; Admin Dose 400 MG; Start 12/11/18 at 11:30 Metoclopramide HCl (Reglan) 5 mg WITH MEALS PO Last administered on 12/12/18 10:26; Admin Dose 5 MG; Start 12/11/18 at 12:30 Erythromycin (Erythromycin) 250 mg Q8 PO Last administered on 12/12/18 05:57; Admin Dose 250 MG; Start 12/11/18 at 13:00 Diphenhydramine HCl (Benadryl) 25 mg Q12H PO Last administered on 12/12/18at 01:13; Admin Dose 25 MG; Start 12/11/18 at 12:00; Stop 12/12/18 at 11:59 Gabapentin (Neurontin) 100 mg TID PO Last administered on 12/12/18at 10:26; Admin Dose 100 MG; Start 12/11/18 at 13:00 Pantoprazole (Protonix Tab) 40 mg DAILY@06 PO Last administered on 12/12/18at 05:57; Admin Dose 40 MG; Start 12/12/18 at 06:00 Insulin Aspart (Novolog Insulin Pen) (Adult SC Insulin - Mild Algorithm)... Q4 SC ; Start 12/12/18 at 01:00 ALBERT SRINIVASAN Dec 12, 2018 11:47
[2018-12-12] MEDS ORDERED: DEXTROSE 5%-0.45% NACL 1,000 ML IV SCH (13:00)
--- NOTE | 2018-12-12 13:09 | PN ---
Date/Time of Note Date/Time of Note DATE: 12/12/18 TIME: 13:00 Assessment/Plan VTE Prophylaxis Risk score (from Nsg)>0 risk: 1 SCD applied (from Ns): No SCD contraindicated: other Pharmacological prophylaxis: NA/contraindicated Pharm contraindication: low risk/ambulating Lines/Catheters [facility] Urinary Cath still in place: No Assessment/Plan Hospital Course SUBJECTIVE:. abdominal pain persists per patient. He is also very sensitive even when I attempt to touch his abdomen. OBJECTIVE: Vital signs-see below PHYSICAL EXAM: Constitutional: Adequately built,not in acute distress. HEENT: Head atraumatic and normocephalic. Eyes: Extraocular muscles intact. Anicteric sclerae. Pupils equal bilaterally, reactive to light. NECK: Supple without lymph node. CHEST: Clear and good breath sounds equally. No wheezing. No rhonchi. HEART: S1, S2. Regular rate and rhythm. ABDOMEN: +Tenderness periumblical area. no rebound tenderness. Bowel sounds were present. EXTREMITIES: No cyanosis, clubbing or edema. NEUROLOGIC: Alert and oriented x3. No focal deficit. No sensory deficit. PSYCHOSOCIAL: No signs of depression. INTEGUMENTARY: No open wounds. ASSESSMENT AND PLAN:53 yo M w/ESRD/HD TTS, DM.htn,dlp, here w/1 mionth duration of abdominal pain Diabetic gastroparesis -cont . erythromycin base/Reglan/Benadryl combination. -PRN Zofran Possible early pancreatitis -Lipase normal. Diet per GI recommendations Abdominal pain likely secondary to above. -GI on board, since patient continues to report abdominal pain, plan is EGD evaluation today. Patient already has a colonoscopy scheduled this Monday as outpatient. -On empiric PPI ESRD/HD TTS -Nephrology managing this Hyperkalemia -Per nephro team IDDM, poorly controlled -Basal/Bolus insulin Essential hypertension -Now stable after addition of labetalol. -cont procardia/clonidine -Continue to hold ARB 2/2 hyperkalemia and add low dose BB -UF Dyslipidemia -cont statin DM Neuropathy -on Gabapentin DVT prophylaxis: SCDs PUD prophylaxis: Pepcid Disposition: Overall, patient with stable labs and vital signs. However, he continues to report supersensitive abdominal pain for which GI has recommended an EGD evaluation for ruling out gastritis or peptic ulcer disease. Patient has a colonoscopy scheduled as outpatient on Monday. If EGD is unremarkable, patient can be discharged home with medications. Patient is seen in collaboration with Dr. Teague Result Diagram: 12/11/18 0547 12/11/18 0547 Results 24hrs Laboratory Tests Test 12/11/18 17:09 12/11/18 20:52 12/12/18 01:16 12/12/18 05:48 Bedside Glucose 78 82 72 53 L Test 12/12/18 06:22 12/12/18 06:44 12/12/18 08:36 Bedside Glucose 101 90 74 Exam/Review of Systems Exam Vitals Vital Signs Date Temp Pulse Resp B/P (MAP) Pulse Ox O2 O2 Flow FiO2 Time Delivery Rate 12/12/18 98.2 81 20 145/79 97 07:43 (101) 12/11/18 Room Air 09:07 Intake and Output 12/11/18 12/11/18 12/12/18 1515:00 23:00 07:00 IntakeIntake Total 0 ml OutputOutput Total 2400 ml BalanceBalance -2400 ml 0 ml Results Results 24hrs Laboratory Tests Test 12/11/18 17:09 12/11/18 20:52 12/12/18 01:16 12/12/18 05:48 Bedside Glucose 78 82 72 53 L Test 12/12/18 06:22 12/12/18 06:44 12/12/18 08:36 Bedside Glucose 101 90 74 Medications Medication Current Medications IV Flush (NS 3 ml) 3 ml PER PROTOCOL IV ; Start 12/10/18 at 01:00 Ondansetron HCl (Zofran Inj) 4 mg Q6H PRN IV NAUSEA/VOMITING Last administered on 12/10/18at 02:40; Admin Dose 4 MG; Start 12/10/18 at 01:00 Hydromorphone HCl (Dilaudid) 2 mg Q4H PRN IV .SEVERE PAIN 7-10 Last administered on 12/12/18at 00:13; Admin Dose 2 MG; Start 12/10/18 at 01:00 Atorvastatin Calcium (Lipitor) 20 mg QHS PO Last administered on 12/11/18at 20:58; Admin Dose 20 MG; Start 12/10/18 at 21:00 Calcium Acetate (Phoslo) 667 mg WITH MEALS PO Last administered on 12/12/18 10:25; Admin Dose 667 MG; Start 12/10/18 at 08:00 Clonidine (Catapres) 0.1 mg Q8 PO Last administered on 12/12/18 05:57; Admin Dose 0.1 MG; Start 12/10/18 at 06:00 Insulin Glargine (Lantus) 10 units QHS SC Last administered on 12/11/18 21:12; Admin Dose 10 UNITS; Start 12/10/18 at 21:00 Nifedipine (Procardia Xl) 90 mg DAILY PO Last administered on 12/11/18 10:38; Admin Dose 90 MG; Start 12/10/18 at 09:00 Diagnostic Test (Pha) (Accu-Chek) 1 ea 02 XX Last administered on 12/10/18 02:29; Admin Dose 1 EA; Start 12/10/18 at 02:00 Miscellaneous Information 1 ea NOTE XX ; Start 12/10/18 at 13:00 Glucose (Glutose) 15 gm Q15M PRN PO DECREASED GLUCOSE; Start 12/10/18 at 13:00 Glucose (Glutose) 22.5 gm Q15M PRN PO DECREASED GLUCOSE; Start 12/10/18 at 13:00 Dextrose (D50w Syringe) 25 ml Q15M PRN IV DECREASED GLUCOSE Last administered on 12/12/18 05:57; Admin Dose 25 ML; Start 12/10/18 at 13:00 Dextrose (D50w Syringe) 50 ml Q15M PRN IV DECREASED GLUCOSE; Start 12/10/18 at 13:00 Glucagon (Glucagen) 1 mg Q15M PRN IM DECREASED GLUCOSE; Start 12/10/18 at 13:00 Glucose (Glutose) 15 gm Q15M PRN BUCCAL DECREASED GLUCOSE; Start 12/10/18 at 13:00 Hydralazine HCl (Apresoline) 10 mg Q4H PRN IV ELEVATED BLOOD PRESSURE Last ad ministered on 12/11/18 10:42; Admin Dose 10 MG; Start 12/11/18 at 04:30 Labetalol HCl (Normodyne) 400 mg BID PO Last administered on 12/12/18 10:26; Admin Dose 400 MG; Start 12/11/18 at 11:30 Metoclopramide HCl (Reglan) 5 mg WITH MEALS PO Last administered on 12/12/18 10:26; Admin Dose 5 MG; Start 12/11/18 at 12:30 Erythromycin (Erythromycin) 250 mg Q8 PO Last administered on 12/12/18 05:57; Admin Dose 250 MG; Start 12/11/18 at 13:00 Gabapentin (Neurontin) 100 mg TID PO Last administered on 12/12/18 10:26; Admin Dose 100 MG; Start 12/11/18 at 13:00 Pantoprazole (Protonix Tab) 40 mg DAILY@06 PO Last administered on 12/12/18 05:57; Admin Dose 40 MG; Start 12/12/18 at 06:00 Insulin Aspart (Novolog Insulin Pen) (Adult SC Insulin - Mild Algorithm)... Q4 SC ; Start 12/12/18 at 01:00 NATO SOTO NP Dec 12, 2018 13:09
--- NOTE | 2018-12-12 17:43 | PREAC ---
Date/Time of Note Date/Time of Note DATE: 12/12/18 TIME: 17:40 Anesthesia Eval and Record Evaluation Time Pre-Procedure Interview DATE: 12/12/18 TIME: 17:40 Age 53 Sex male NPO: 8 hrs Preoperative diagnosis ABDOMINAL PAIN Planned procedure EGD Past Medical History Past Medical History: Includes Cardio: HTN, Dyslipidemia Endo: Diabetes Renal: ESRD on dialysis Surgery & Anesthesia Issues No known issue Meds Anticoagulation: No Beta Naveen within 24 hr: No Reason Beta Naveen not given: Pt. not on B-Naveen Active Scripts Nifedipine (Procardia Xl) 90 Mg Tab.er.24, 90 MG PO DAILY, #30 TAB Prov:SOTO,NATO V. COUNCILPERSON 09/17/18 Losartan Potassium* (Cozaar*) 50 Mg Tablet, 50 MG PO BID, #60 TAB Prov:SOTO,NATO V. COUNCILPERSON 09/17/18 Bumetanide* (Bumetanide*) 1 Mg Tablet, 2 MG PO DAILY, #30 TAB Prov:SOTO,NATO V. COUNCILPERSON 09/17/18 Insulin Lispro (Humalog Kwikpen U-100) 100 Unit/1 Ml Insuln.pen, 5 UNIT SQ AC MEALS, #3 EA Prov:GREG CHILDS COUNCILPERSON 03/22/18 Atorvastatin Calcium* (Atorvastatin Calcium*) 20 Mg Tablet, 20 MG PO QHS, #30 TAB Prov:GREG CHILDS COUNCILPERSON 03/22/18 Clonidine Hcl* (Clonidine Hcl*) 0.1 Mg Tab, 0.1 MG PO Q8, #90 TAB Prov:GREG CHILDS COUNCILPERSON 03/22/18 Reported Medications Calcium Acetate* (Calcium Acetate*) 667 Mg Capsule, 667 MG PO WITH MEALS, #30 CAP 09/12/18 Multivit/Ca Carb/B Cmplx/Fa* (Berta-Shamika*) 1 Tab Tab, 1 TAB PO DAILY, TAB 06/27/18 Insulin Glargine* (Lantus*) 100 Unit/Ml Soln, 10 UNIT SC QHS, #1 VIAL 06/27/18 Current Medications IV Flush (NS 3 ml) 3 ml PER PROTOCOL IV ; Start 12/10/18 at 01:00 Ondansetron HCl (Zofran Inj) 4 mg Q6H PRN IV NAUSEA/VOMITING Last administered on 12/10/18 02:40; Admin Dose 4 MG; Start 12/10/18 at 01:00 Hydromorphone HCl (Dilaudid) 2 mg Q4H PRN IV .SEVERE PAIN 7-10 Last administered on 12/12/18 13:31; Admin Dose 2 MG; Start 12/10/18 at 01:00 Atorvastatin Calcium (Lipitor) 20 mg QHS PO Last administered on 12/11/18 20:58; Admin Dose 20 MG; Start 12/10/18 at 21:00 Calcium Acetate (Phoslo) 667 mg WITH MEALS PO Last administered on 12/12/18 13:23; Admin Dose 667 MG; Start 12/10/18 at 08:00 Clonidine (Catapres) 0.1 mg Q8 PO Last administered on 12/12/18 05:57; Admin Dose 0.1 MG; Start 12/10/18 at 06:00 Insulin Glargine (Lantus) 10 units QHS SC Last administered on 12/11/18 21:12; Admin Dose 10 UNITS; Start 12/10/18 at 21:00 Nifedipine (Procardia Xl) 90 mg DAILY PO Last administered on 12/11/18 10:38; Admin Dose 90 MG; Start 12/10/18 at 09:00 Diagnostic Test (Pha) (Accu-Chek) 1 ea 02 XX Last administered on 12/10/18 02:29; Admin Dose 1 EA; Start 12/10/18 at 02:00 Miscellaneous Information 1 ea NOTE XX ; Start 12/10/18 at 13:00 Glucose (Glutose) 15 gm Q15M PRN PO DECREASED GLUCOSE; Start 12/10/18 at 13:00 Glucose (Glutose) 22.5 gm Q15M PRN PO DECREASED GLUCOSE; Start 12/10/18 at 13:00 Dextrose (D50w Syringe) 25 ml Q15M PRN IV DECREASED GLUCOSE Last administered on 12/12/18 13:32; Admin Dose 25 ML; Start 12/10/18 at 13:00 Dextrose (D50w Syringe) 50 ml Q15M PRN IV DECREASED GLUCOSE; Start 12/10/18 at 13:00 Glucagon (Glucagen) 1 mg Q15M PRN IM DECREASED GLUCOSE; Start 12/10/18 at 13:00 Glucose (Glutose) 15 gm Q15M PRN BUCCAL DECREASED GLUCOSE; Start 12/10/18 at 13:00 Hydralazine HCl (Apresoline) 10 mg Q4H PRN IV ELEVATED BLOOD PRESSURE Last administered on 12/11/18 10:42; Admin Dose 10 MG; Start 12/11/18 at 04:30 Labetalol HCl (Normodyne) 400 mg BID PO Last administered on 12/12/18 10:26; Admin Dose 400 MG; Start 12/11/18 at 11:30 Metoclopramide HCl (Reglan) 5 mg WITH MEALS PO Last administered on 12/12/18 13:23; Admin Dose 5 MG; Start 12/11/18 at 12:30 Erythromycin (Erythromycin) 250 mg Q8 PO Last administered on 12/12/18 05:57; Admin Dose 250 MG; Start 12/11/18 at 13:00 Gabapentin (Neurontin) 100 mg TID PO Last administered on 12/12/18 13:23; Admin Dose 100 MG; Start 12/11/18 at 13:00 Pantoprazole (Protonix Tab) 40 mg DAILY@06 PO Last administered on 12/12/18 05:57; Admin Dose 40 MG; Start 12/12/18 at 06:00 Insulin Aspart (Novolog Insulin Pen) (Adult SC Insulin - Mild Algorithm)... Q4 SC ; Start 12/12/18 at 01:00 Dextrose/Sodium Chloride 1,000 ml @ 40 mls/hr Q24H IV Last administered on 12/12/18at 15:30; Admin Dose 40 MLS/HR; Start 12/12/18 at 13:00 Meds reviewed: Yes Allergies Coded Allergies: No Known Allergy (Unverified , 09/12/18) Allergies Reviewed: Yes Labs/Studies Labs Reviewed: Reviewed by anesthesiologist Result Diagram: 12/11/1854612/11/18546 test: N/A Studies: CXR (No acute cardiopulmonary abnormality.) Pre-procedure Exam Last vitals Vital Signs Date Temp Pulse Resp B/P (MAP) Pulse Ox O2 O2 Flow FiO2 Time Delivery Rate 12/12/18 80 16 179/93 97 Room Air 17:20 (121) 12/12/18 98.2 13:10 Airway: Adequate mouth opening, Adequate thyromental dist Mallampati: Mallampati II Teeth: Normal Lung: Normal Heart: Normal ASA Physical Status ASA physical status: 4 Emergency: None Planned Anesthetic General/MAC: MAC Planned Pain Management Parenteral pain med Pre-operative Attestations Prior to commencing anesthesia and surgery, the patient was re-evaluated, there was verification of: *The patient's identity *The results of appropriate recent lab work and preoperative vital signs *The above evaluation not changing prior to induction *Anesthetic plan, risk benefits, alternative and complications discussed with patient/family; questions answered; patient/family understands, accepts and wishes to proceed. Judah Batista M.D. Dec 12, 2018 17:43
[2018-12-12] MEDS ORDERED: LIDOCAINE 100 MG SYRINGE ONE (17:46)
[2018-12-12] MEDS ORDERED: hydrALAzine 20 MG INJ ONE (17:46)
[2018-12-12] MEDS ORDERED: FENTAnyl 50 MCG/ML VIAL ONE (17:46)
[2018-12-12] MEDS ORDERED: PROPOFOL 20 ML ONE (17:46)
--- NOTE | 2018-12-12 17:51 | HPN ---
Date/Time of Note Date/Time of Note DATE: 12/12/18 TIME: 17:49 Interval H&P Admission Note Pt. seen H&P reviewed: No system changes AUGUSTUS RUBIO MD Dec 12, 2018 17:51
[2018-12-12] MEDS ORDERED: LABETALOL HCL 20MG INJ ONE (17:52)
--- NOTE | 2018-12-12 18:10 | PAC ---
Date/Time of Note Date/Time of Note DATE: 12/12/18 TIME: 18:10 Post-Anesthesia Notes Post-Anesthesia Note Last documented vital signs Vital Signs Date Temp Pulse Resp B/P (MAP) Pulse Ox O2 O2 Flow FiO2 Time Delivery Rate 12/12/18 80 16 179/93 97 Room Air 17:20 (121) 12/12/18 98.2 13:10 Activity: WNL Respiratory function: WNL Cardiovascular function: WNL Mental status: Baseline Pain reasonably controlled: Yes Hydration appropriate: Yes Nausea/Vomiting absent: Yes Judah Batista M.D. Dec 12, 2018 18:10
[2018-12-12] MEDS: ATORVASTATIN 20 MG TAB PO SCH (20:27)
[2018-12-12] MEDS: INSULIN GLARGINE [LANTus] (100 UNITS/ML) SYG SC SCH (20:42)
[2018-12-12] MEDS: hydrALAzine 20 MG INJ IV PRN (21:36)
[2018-12-13 01:37] VITALS: BP 183/89; PULSE 96; RESP 18
[2018-12-13] MEDS: hydrALAzine 20 MG INJ IV PRN (01:51)
[2018-12-13] MEDS ORDERED: ACCU-CHEK XX SCH (02:00)
[2018-12-13] MEDS: ACCU-CHEK XX SCH (02:00)
[2018-12-13 02:31] VITALS: BP 170/83; PULSE 99
[2018-12-13] MEDS: ERYTHROMYCIN BASE (DR) 250 MG CAP PO SCH ×2 (06:15→14:25)
[2018-12-13] MEDS: PANTOPRAZOLE (EC) 40 MG TAB PO SCH (06:15)
[2018-12-13] MEDS: METOCLOPRAMIDE 5 MG TAB PO SCH ×2 (06:15→12:52)
[2018-12-13 08:06] VITALS: BP 162/80; PULSE 89; RESP 18
[2018-12-13] MEDS: GABAPENTIN 100 MG CAP PO SCH ×2 (08:32→12:52)
[2018-12-13] MEDS: LABETALOL 200 MG TAB PO SCH (08:33)
[2018-12-13] MEDS: CALCIUM ACETATE 667 MG CAP PO SCH ×2 (08:33→12:52)
[2018-12-13] MEDS: NIFEdipine (XL) 90 MG TAB PO SCH (08:34)
[2018-12-13] MEDS: INSULIN ASPART [NOVOLOG] 3 ML PEN SC SCH ×2 (08:36→12:55)
--- NOTE | 2018-12-13 10:55 | PDOCDIS ---
Discharge Instructions CONDITION [id number] Patient Condition: [id number] Stable HOME CARE INSTRUCTIONS: [id number] Your diet recommendation is: [id number] Carbohydrate controlled/Renal diet FOLLOW UP/APPOINTMENTS Follow-up Plan Follow-up with primary care physician in 1 week Follow-up with outpatient hemodialysis clinic/[facility] for next dialysis. You are diagnosed with gastritis and slow movement of food because of your diab etes. You need to take the medications as prescribed for both conditions. These make sure you take your Protonix for breakfast and also one at nighttime. You need to take it for at least 6 weeks. Your digestion will be improved if you take small portions of food. Drink water to help food moving your gut. Your pathology report is pending for which you can call Dr. Ralph's office on Monday to get the results. NATO SOTO NP Dec 13, 2018 10:55
[2018-12-13] MEDS ORDERED: METO5TAB2 PO (11:02)
[2018-12-13] MEDS ORDERED: ONDA4TAB13 PO (11:02)
[2018-12-13] MEDS ORDERED: ERYT250C52 PO (11:02)
[2018-12-13] MEDS ORDERED: PANT40TA4 PO (11:02)
[2018-12-13] MEDS ORDERED: GABA100C14 PO (11:02)
[2018-12-13] MEDS ORDERED: LABE200T25 PO (11:02)
--- NOTE | 2018-12-13 11:09 | DS ---
Date/Time of Note Date/Time of Note DATE: 12/13/18 TIME: 11:06 Discharge Summary Admission/Discharge Info Admit Date/Time Dec 09, 2018 at 23:30 Discharge Date/Time Discharge Diagnosis Diabetic gastroparesis Possible early pancreatitis Severe gastritis Abdominal pain likely secondary to above. ESRD/HD TTS Hyperkalemia IDDM Essential hypertension Dyslipidemia DM Neuropathy Patient Condition: Stable Consults Procedures : Nuclear medicine gastric emptying study: IMPRESSION: Delayed gastric emptying rate . RPTAT: HH .Sigrid Avila MD, MD Date Time Electronically viewed and signed by .Sigrid Avila MD, MD on 12/10/2018 16:41 .L/ CC: NATO SOTO V. HEALTH CARE FACILITY ADMINISTRATOR [phone] 12/12/2018: EGD Impression: Moderate distal esophagitis/small hiatal hernia/severe gastritis, rule out H. pylori/mild gastroparesis Hospital Course 53 yo M w/ESRD/HD TTS, DM.htn,dlp, here w/1 mionth duration of abdominal pain mostly epigastric/periumbilical area. Patient studies were strongly suggestive of gastritis, diabetic gastroparesis and a possible early mild pancreatitis. He did well on bowel rest, Protonix, Reglan, erythromycin base. Patient also underwent EGD evaluation which also showed severe gastritis and esophagitis. Patient was being followed by GI team. His pain improved. He was being dialyzed accordingly per nephrology recommendations. Hyperkalemia resolved. Patient was noted with poorly managed hypertension for which he also required addition of labetalol. Losartan was discontinued secondary to hyperkalemia. Patient was continued on home medication for other comorbidities. At this time, patient with stable labs vital signs. Patient with not much abdominal pain and has been tolerating a diet well. He is stable for discharge with outpatient follow-up. Patient to follow-up with [facility] to obtain EGD pathology report which he verbalized understanding. Please see patient discharge instructions. Approximately 60-minute was spent on coordinating the discharge on this patient. Patient was seen in collaboration with Dr. Teague. Home Meds Active Scripts Erythromycin* (Erythromycin* EC) 250 Mg Capsule.dr, 250 MG PO Q8 for 7 Days, #21 CAP Prov:SOTOPOORNIMAA V. HEALTH CARE FACILITY ADMINISTRATOR 12/13/18 Ondansetron Hcl* (Zofran*) 4 Mg Tab, 4 MG PO Q6H PRN for NAUSEA AND OR VOMITING, #30 TAB Prov:SOTOPOORNIMAA V. HEALTH CARE FACILITY ADMINISTRATOR 12/13/18 Metoclopramide Hcl* (Metoclopramide Hcl*) 5 Mg Tablet, 5 MG PO AC MEALS AND BEDTIME, #90 TAB Prov:SOTO,NATO V. HEALTH CARE FACILITY ADMINISTRATOR 12/13/18 Pantoprazole* (Pantoprazole*) 40 Mg Tablet.dr, 40 MG PO AC BREAKFAST BEDTIME, #60 TAB Patient to take first dose in the morning on empty stomach before breakfast. Prov:SOTO,NATO V. HEALTH CARE FACILITY ADMINISTRATOR 12/13/18 Gabapentin* (Gabapentin*) 100 Mg Capsule, 100 MG PO TID, #90 CAP Prov:SOTOPOORNIMAA V. HEALTH CARE FACILITY ADMINISTRATOR 12/13/18 Labetalol Hcl* (Labetalol Hcl*) 200 Mg Tablet, 400 MG PO BID, #120 TAB Please note dose is 400 mg twice a day. Prov:SOTOPOORNIMAA Jhoana GUILLAUME 12/13/18 Nifedipine (Procardia Xl) 90 Mg Tab.er.24, 90 MG PO DAILY, #30 TAB Prov:SOTOPOORNIMAA V. HEALTH CARE FACILITY ADMINISTRATOR 09/17/18 Bumetanide* (Bumetanide*) 1 Mg Tablet, 2 MG PO DAILY, #30 TAB Prov:ANTO SOTO NP 09/17/18 Insulin Lispro (Humalog Kwikpen U-100) 100 Unit/1 Ml Insuln.pen, 5 UNIT SQ AC MEALS, #3 EA Prov:GREG CHILDS HEALTH CARE FACILITY ADMINISTRATOR 03/22/18 Atorvastatin Calcium* (Atorvastatin Calcium*) 20 Mg Tablet, 20 MG PO QHS, #30 TAB Prov:GREG CHILDS HEALTH CARE FACILITY ADMINISTRATOR 03/22/18 Clonidine Hcl* (Clonidine Hcl*) 0.1 Mg Tab, 0.1 MG PO Q8, #90 TAB Prov:GREG CHILDS NP 03/22/18 Reported Medications Calcium Acetate* (Calcium Acetate*) 667 Mg Capsule, 667 MG PO WITH MEALS, #30 CAP 09/12/18 Multivit/Ca Carb/B Cmplx/Fa* (Berta-Shamika*) 1 Tab Tab, 1 TAB PO DAILY, TAB 06/27/18 Insulin Glargine* (Lantus*) 100 Unit/Ml Soln, 10 UNIT SC QHS, #1 VIAL 06/27/18 Discontinued Scripts Losartan Potassium* (Cozaar*) 50 Mg Tablet, 50 MG PO BID, #60 TAB Prov:NATO SOTO NP 09/17/18 Follow-up Plan Follow-up with primary care physician in 1 week Follow-up with outpatient hemodialysis clinic/[facility] for next dialysis. You are diagnosed with gastritis and slow movement of food because of your diabetes. You need to take the medications as prescribed for both conditions. These make sure you take your Protonix for breakfast and also one at nighttime. You need to take it for at least 6 weeks. Your digestion will be improved if you take small portions of food. Drink water to help food moving your gut. Your pathology report is pending for which you can call Dr. Ralph's office on Monday to get the results. Primary Care Provider Vu Garay Pending Labs Laboratory Tests Test 12/12/18 13:17 12/12/18 14:42 12/12/18 15:03 12/12/18 17:30 Bedside 56 96 86 79 Glucose mg/dL (70-220) mg/dL (70-220) mg/dL (70-220) mg/dL (70-220) Test 12/12/18 20:24 12/12/18 20:56 12/12/18 21:23 12/12/18 21:52 Bedside 53 57 77 104 Glucose mg/dL (70-220) mg/dL (70-220) mg/dL (70-220) mg/dL (70-220) Test 12/12/18 22:15 12/13/18 08:01 Bedside 114 234 Glucose mg/dL (70-220) mg/dL (70-220) NATO SOTO NP Dec 13, 2018 11:09
[2018-12-13 13:24] VITALS: BP 123/66; PULSE 84; RESP 18
== END 2018-12-13 15:00 | disposition home or self-care (01) | DRG 438 ==
LOC: E/R 19:47 → 6WM 23:30 → CANRESERV 12-10 00:01 → EDBEDREQSVC 12-10 00:43 → EDBEDREQ 12-10 00:43 → 2NE 12-12 00:03
PROVIDERS: ADMIT Internal Medicine; ATTEND Internal Medicine
PROC: 0DB68ZX Excision of Stomach, Via Natural or Artificial Opening Endoscopic, Diagnostic (ICD-10-PCS; principal; 2018-12-12 18:00)
DX: K85.90 Acute pancreatitis without necrosis or infection, unspecified (principal); N18.6 End stage renal disease; I13.2 Hypertensive heart and chronic kidney disease with heart failure and with stage 5 chronic kidney disease, or end stage renal disease; K29.70 Gastritis, unspecified, without bleeding; E11.43 Type 2 diabetes mellitus with diabetic autonomic (poly)neuropathy; E11.22 Type 2 diabetes mellitus with diabetic chronic kidney disease; Z99.2 Dependence on renal dialysis; K31.84 Gastroparesis; K20.9 Esophagitis, unspecified; Z87.891 Personal history of nicotine dependence; E87.5 Hyperkalemia; E83.39 Other disorders of phosphorus metabolism; E78.5 Hyperlipidemia, unspecified; I50.9 Heart failure, unspecified; K44.9 Diaphragmatic hernia without obstruction or gangrene
CPT/HCPCS: 36415; 71045; 74176; 74177; 78264; 80048; 80053; 80061; 81001; 82150; 82962; 83036; 83690; 83735; 84100; 84484; 85025; 87340; 88305; 88312; 90935; 93005; 96374; 96375; A9541; J0360; J1170; J1815; J2001; J2270; J2405; J3010; J7042; Q9967